=== PATIENT | female | born 1980 | race African-American/Black ===

== ENCOUNTER 2022-03-19 11:15 | Inpatient (IN) | payer MEDICARE, MEDICAID, SELFPAY ==
[2022-03-19 11:35] VITALS: BP 120/75; PULSE 90; RESP 18; TEMP 37.1; O2SAT 98; BMI 51.5
--- NOTE | 2022-03-19 12:05 | ECG_ITS ---
Test Reason : MED CLEARANCE Blood Pressure : / mmHG Vent. Rate : 077 BPM Atrial Rate : 077 BPM P-R Int : 182 ms QRS Dur : 064 ms QT Int : 354 ms P-R-T Axes : 051 048 057 degrees QTc Int : 400 ms Normal sinus rhythm Normal ECG No previous ECGs available Referred By: Mckenna Lockhart Electronically Signed By:NARESH HONG
[2022-03-19 12:58] LABS: MANUAL DIFF FLAG NO
[2022-03-19 13:03] LABS: Influenza A PCR NEGATIVE (Negative); Influenza B PCR NEGATIVE (Negative); Resp Syncy Virus RNA Qual PCR NEGATIVE (Negative); SARS COV2 PCR INHOUSE NEGATIVE (Negative)
[2022-03-19 13:03] LABS: Basophils Percent Auto 0.5 % (0-2); Eosinophils Percent Auto 0.5 % (0-4); Hematocrit 40.5 % (37.0-47.0); Hemoglobin 13.3 g/dl (12.0-16.0); Imm Gran Abs Auto 0.02 X10*3/uL (0.00-0.03); Imm Gran Pct Auto 0.3 % (0.0-0.4); Lymphocytes Absolute Auto 2.9 X10*3/uL (1.2-4.9); Lymphocytes Percent Auto 38.8 % (20-40); Mean Corpuscular HGB Conc 32.8 g/dl (31.0-35.0); Mean Corpuscular Hemoglobin 30.8 pg (27.0-33.0); Mean Corpuscular Volume 93.8 fL (80.0-98.0); Mean Platelet Volume 11.8 fL (9.4-12.3); Monocytes Absolute Auto 0.6 X10*3/uL (0.1-1.2); Monocytes Percent Auto 8.7 % (2-11); Neutrophils Absolute Auto 3.8 x10*3/uL (2.0-8.3); Neutrophils Percent Auto 51.2 % (45-73); Platelet Count 173 X10*3/uL (160-400); Red Blood Count 4.32 X10*6/uL (4.20-5.50); Red Cell Distribution Width 13.6 % (11.0-16.0); White Blood Count 7.4 X10*3/uL (4.8-10.8)
[2022-03-19 13:32] LABS: Alanine Aminotransferase 19 U/L (0-31); Alkaline Phosphatase 61 U/L (39-117); Anion Gap 13 (12-20); Aspartate Amino Transferase 13 U/L (5-31); Bilirubin Total 0.3 mg/dL (0.0-1.0); Blood Urea Nitrogen 16 mg/dL (9-16); Calcium 9.3 mg/dL (8.4-10.2); Carbon Dioxide 25 mmol/L (22-29); Chloride 106 mmol/L (96-108); Creatinine Clr Calc Pharmacy 135.1; Estimated Glomerular Filt Rate > 60; Ethanol < 10 mg/dL; Glucose Random 108 mg/dL (60-115); Potassium 3.9 mmol/L (3.3-5.1); Sodium 140 mmol/L (135-145); Total Protein 7.1 g/dL (6.5-8.0)
--- OUTSIDE RECORDS SUMMARY | 2022-03-19 13:43 | XMS_ITS | Continuity of Care Document ---
:1980 Author Organization [facility] Address [address] [place] [address]- Care Team Providers Name Role Phone Not on Staff, PCP Primary Care Physician Unavailable Encounter [facility] [place] Date(s): 10/13/19 - 11/15/19 [facility] [address] [place] [address]- [facility] Attending Physician: Not on Staff, Attending MD Allergies, Adverse Reactions, Alerts Substance Reaction Severity Status NKA Active Medications Cogentin Tablet 1 mg, By Mouth, 2 times a day, Refills 0, Maintenance, 03/25/16 14:12:47 Start Date: 03/25/16 Status: OrderedColace sodium 100 mg oral capsule 100 mg, 1, capsule, By Mouth, 2 times a day, # 60 capsule, Refills 5, Tot. Refills 5, Maintenance, 05/09/19 15:13:00 EST, Route to Pharmacy Electronically, [facility]/pharmacy #[id number], 170.18, cm, 04/21/19 10:18:00 EST, Height, 132.6, kg, 10/13/17 13:55:00 EDT... Start Date: 05/09/19 Status: OrderedDepakote 500 mg oral enteric coated tablet 1 tablet = 500 mg, By Mouth, 2 times a day, 0 Refills, Maintenance, 03/25/16 14:10:42 EST Start Date: 03/25/16 Stop Date: 04/24/16 Status: Orderedethinyl estradiol-levonorgestrel 20 mcg-100 mcg oral tablet 1 tablet, By Mouth, Daily, starting on the first day of the menstrual cycle for PCOS, per Endocrine,# 28 tablet, 11 Refills, Maintenance, 11/08/18 14:45:54 EDT, Tablet, 1 tablet By Mouth Daily,x28 days,Instr:starting on the first day of the menstrua... Start Date: 11/08/18 Stop Date: 10/10/19 Status: OrderedFlonase 50 mcg/inh nasal spray 1 sprays, Nares, Both, Daily, # 1 each, 11 Refills, Maintenance, 11/08/18 14:45:31 EDT, 1 sprays Nares, Both Daily Start Date: 11/08/18 Status: Orderedhaloperidol 5 mg oral tablet 5 mg, 1, tablet, By Mouth, Daily, Refills 0, Maintenance, 04/21/19 10:28:00 EST Start Date: 04/21/19 Status: OrderedmetFORMIN 500 mg oral tablet 1 tablet = 500 mg, By Mouth, 2 times a day, # 60 tablet, 11 Refills, Maintenance, 11/08/18 14:45:43 EDT, Tablet Start Date: 11/08/18 Stop Date: 11/03/19 Status: Orderedolanzapine 2.5 mg oral tablet TAKE 1 TABLET BY MOUTH NEEDED ONCE A DAY FOR SEVERE ANXIETY/ AGITATION/ AUDITORY HALLUCINATIONS Start Date: 03/10/17 Status: Orderedolanzapine 5 mg oral tablet TAKE 1 TABLET BY MOUTH AT BEDTIME DIRECTED Start Date: 03/10/17 Status: OrderedtraZODone 100 mg oral tablet 100 mg, 1, tablet, By Mouth, Daily at bedtime, Refills 0, Maintenance, 06/28/18 9:57:43 EDT Start Date: 06/28/18 Status: OrderedZyPREXA 20 mg oral tablet 1 tablet = 20 mg, By Mouth, Daily at bedtime, 0 Refills, Maintenance, 03/25/16 14:11:13 Start Date: 03/25/16 Status: Ordered Problem List Condition Effective Dates Status Health Status Informant Elevated prolactin level(Confirmed) Active Legal Guardian(Confirmed)1 Active Morbid obesity(Confirmed) Active Tobacco abuse(Confirmed) 1996 Active 1Mom is court appointed guardian as of 11/10/2010, Anjelica Hong Social History Social History Type Response Smoking Status Current every day smoker entered on: 03/10/17 Sex Female
--- OUTSIDE RECORDS SUMMARY | 2022-03-19 13:43 | XMS_ITS | Continuity of Care Document ---
:1980 Author Organization [facility] Address [address] [place] [address]- Care Team Providers Name Role Phone Ej ZNEG, Florence Glass Primary Care Physician [place] [facility] [place](s): 11/29/19 - 12/29/19 [facility] [address] [place] [address]- [facility] Allergies, Adverse Reactions, Alerts Substance Reaction Severity Status NKA Active Medications Cogentin Tablet 1 mg, By Mouth, 2 times a day, Refills 0, Maintenance, 03/25/16 14:12:47 Start Date: 03/25/16 Status: OrderedColace sodium 100 mg oral capsule 100 mg, 1, capsule, By Mouth, 2 times a day, # 60 capsule, Refills 5, Tot. Refills 5, Maintenance, 05/09/19 15:13:00 EST, [id number] 170.18, cm, 04/21/19 10:18:00 EST, Height, 132.6, kg, 10/13/17 13:55:00 EDT... Start Date: 05/09/19 Status: OrderedDepakote 500 mg oral enteric coated tablet 1 tablet = 500 mg, By Mouth, 2 times a day, 0 Refills, Maintenance, 03/25/16 14:10:42 EST Start Date: 03/25/16 Stop Date: 04/24/16 Status: Ordereddocusate sodium 100 mg oral capsule 100 mg, 1, capsule, By Mouth, 2 times a day, PRN, # 20 capsule, Refills 0, Tot. Refills 0, Maintenance, for constipation, 12/26/19 9:28:00 EDT, Route to Pharmacy Electronically, [facility], 170.18, cm, 04/21/19 10:18:00 EST, Height Start Date: 12/26/19 Status: OrderedFlonase 50 mcg/inh nasal spray 1 [...] 2 times a day, # 60 tablet, 2 Refills, Maintenance, 11/29/19 15:32:00 EDT, Tablet, [facility], 170.18, cm, 04/21/19 10:18:00 EST, Height Start Date: 11/29/19 Stop Date: 02/27/20 Status: Orderedolanzapine 2.5 mg oral tablet TAKE [...]
--- OUTSIDE RECORDS SUMMARY | 2022-03-19 13:43 | XMS_ITS | Continuity of Care Document ---
:1980 Author Organization [facility] Address [address] [place] [address]- Care Team Providers Name Role Phone Not on Staff, PCP Primary Care Physician Unavailable Encounter [facility] [place] Date(s): 11/11/19 - 11/12/[address] [address]- [facility] Encounter Diagnosis Poor compliance with medication (Final) - 11/12/19 Discharge Disposition: A-D/C Home Attending Physician: Macarena Billy MD Admitting Physician: Macarena Billy MD Referring Physician: Not on Staff, Referring MD Allergies, Adverse Reactions, Alerts Substance Reaction Severity Status NKA Active Medications Cogentin Tablet 1 mg, By Mouth, 2 times a day, Refills 0, Maintenance, 03/25/16 14:12:47 Start Date: 03/25/16 Status: OrderedColace sodium 100 mg oral capsule 100 mg, 1, capsule, By Mouth, 2 times a day, # 60 capsule, Refills 5, Tot. Refills 5, Maintenance, 05/09/19 15:13:00 EST, Route to Pharmacy Electronically, [facility]/pharmacy #[id number], 170.18, cm, 04/21/19 10:18:00 EST, Height, [...] appointed guardian as of 11/10/2010, Anjelica Hong Vital Signs Most recent to oldest [Reference 1 2 3 Range]: Oxygen Saturation [94-100 %] 98 % 100 % 100 % (11/12/19 5:38 AM) (11/12/19 4:07 AM) (11/12/19 1:53 A M) Pulse Rate [55-90 bpm] 84 bpm 79 bpm 78 bpm (11/12/19 5:38 AM) (11/12/19 4:07 AM) (11/12/19 1:53 A M) Blood Pressure [90-138/55-84 mm 134/74 mm Hg 128/79 mm Hg 128/89 mm Hg Hg] (11/12/19 5:38 AM) (11/12/19 4:07 AM) (11/12/19 1:53 A M) Respiratory Rate [16-30 br/min] 20 br/min 16 br/min 16 br/min (11/12/19 5:38 AM) (11/12/19 4:07 AM) (11/12/19 1:53 A M) Temperature [96.8-100.4 DegF] 98.4 DegF 98.7 DegF 97 .8 DegF (11/12/19 4:07 AM) (11/12/19 1:53 AM) (11/11/19 11:43 PM) Mode of Delivery (Oxygen) Room air Room air Room a ir (11/12/19 5:38 AM) (11/12/19 4:07 AM) (11/12/19 1:53 A M) Blood pressure sites Arm, right Arm, left Arm, left (11/12/19 5:38 AM) (11/12/19 4:07 AM) (11/12/19 1:53 A M) Temperature Route Oral Oral Oral (11/12/19 4:07 AM) (11/12/19 1:53 AM) (11/11/19 11:43 PM) Social History Social History Type Response Smoking Status Current every day smoker entered on: 03/10/17 Sex Female
--- OUTSIDE RECORDS SUMMARY | 2022-03-19 13:43 | XMS_ITS | Continuity of Care Document ---
:1980 Author Organization [facility] Address [address] [place] [address]- Care Team Providers Name Role Phone Tiana FERNANDEZ, Mary Jo Sylvester Primary Care Physician [phone] Encounter [facility] [place] Date(s): 08/12/20 - 09/11/20 [facility] [address] [place] [address]- Allergies, Adverse Reactions, Alerts Substance Reaction Severity Status NKA Active Medications Cogentin Tablet 1 mg, By Mouth, 2 times a day, Refills 0, Maintenance, 03/25/16 14:12:47 Start Date: 03/25/16 Status: OrderedDepakote 500 mg oral enteric coated tablet 1 tablet = 500 mg, By Mouth, 2 times a day, 0 Refills, Maintenance, 03/25/16 14:10:42 EST Start Date: 03/25/16 Stop Date: 04/24/16 Status: OrderedDOK sodium 100 mg oral capsule See Instructions, TAKE 1 CAPSULE BY MOUTH TWICE DAILY NEEDED FOR CONSTIPATION, # 30 capsule, 10 Refills, 05/31/20 10:06:00 EST, [facility], 170.18, cm, 05/31/20 9:06:00 EST, Height Start Date: 05/31/20 Status: OrderedFalmina 100 mcg-20 mcg oral tablet 1 tablet, By Mouth, Daily, STARTING ON THE FIRST DAY OF THE MENSTRUAL CYCLE; FOR PCOS, PER ENDOCRINE, # 28 tablet, 4 Refills, Maintenance, 06/07/20 11:55:00 EST, [facility], 28, TAKE 1 TABLETBY MOUTH DAILY STARTING ON THE FIRST DAY OF THE M... Start Date: 06/07/20 Status: OrderedFlonase 50 mcg/inh nasal spray 1 sprays, Nares, Both, Daily, in each nostril, # 1 each, 11 Refills, Maintenance, 05/31/20 10:06:00 EST, [facility], 1 sprays Nares, Both Daily,Instr:in each nostril, 170.18, cm, 05/31/20 9:06:00 EST, Height Start Date: 05/31/20 Status: OrderedFluconazole 150 mg, Once, Acute, 01/16/20 10:41:00 EDT Start Date: 01/16/20 Status: Orderedhaloperidol 5 mg oral tablet 5 mg, 1, tablet, By Mouth, Daily, Refills 0, Maintenance, 04/21/19 10:28:00 EST Start Date: 04/21/19 Status: Orderedloratadine 10 mg oral tablet 10 mg, 1, tablet, By Mouth, Daily, # 30 tablet, Refills 3, Tot. Refills 3, Maintenance, 08/13/20 11:23:00 EDT, Route to Pharmacy Electronically, [facility], Partial fill upon patient request if the prescription is for a schedule II opioid . Start Date: 08/13/20 Status: OrderedmetFORMIN 500 mg oral tablet 1 tablet, By Mouth, 2 times a day, with meals, # 60 tablet, 3 Refills, Maintenance, 05/31/20 10:06:00 EST, [facility], 170.18, cm, 05/31/20 9:06:00 EST, Height Start Date: 05/31/20 Status: Orderedolanzapine 2.5 mg oral tablet TAKE [...] Condition Effective Dates Status Health Status Informant Allergic rhinitis(Confirmed) Active Elevated prolactin level(Confirmed) Active Legal Guardian(Confirmed)1 Active Morbid obesity(Confirmed) Active Tobacco abuse(Confirmed) 1996 Active 1Mom is court appointed guardian as of 11/10/2010, Anjelica Hong Social History Social History Type Response Smoking Status 10 or more cigarettes (1/2 p ack or more)/day in last 30 days entered on: 06/27/20 Sex Female
--- OUTSIDE RECORDS SUMMARY | 2022-03-19 13:43 | XMS_ITS | Continuity of Care Document ---
:1980 Author Organization [facility] Address [address] [place] [address]- Care Team Providers Name Role Phone Tiana FERNANDEZ, Mary Jo Sylvester Primary Care Physician Encounter [facility] [place] Date(s): 05/21/20 - 06/20/20 [facility] [address] [place] [id number] Allergies, Adverse Reactions, Alerts Substance Reaction Severity [...] 30 capsule, 10 Refills, 05/31/20 10:06:00 EST, [facility], 170.18, cm, 05/31/20 9:06:00 EST, Height Start Date: 05/31/20 Status: OrderedFalmina 100 mcg-20 mcg oral tablet 1 tablet, By Mouth, Daily, STARTING ON THE FIRST DAY OF THE MENSTRUAL CYCLE; FOR PCOS, PER ENDOCRINE, # 28 tablet, 4 Refills, Maintenance, 06/07/20 11:55:00 EST, [facility], 28, TAKE 1 TABLETBY MOUTH DAILY STARTING ON THE FIRST DAY OF THE M... Start Date: 06/07/20 Status: OrderedFlonase 50 mcg/inh nasal spray 1 sprays, Nares, Both, Daily, in each nostril, # 1 each, 11 Refills, Maintenance, 05/31/20 10:06:00 EST, [facility], 1 sprays Nares, Both Daily,Instr:in each [...] tablet, 3 Refills, Maintenance, 05/31/20 10:06:00 EST, [facility], 170.18, cm, 05/31/20 9:06:00 EST, Height [...]
--- OUTSIDE RECORDS SUMMARY | 2022-03-19 13:43 | XMS_ITS | Continuity of Care Document ---
:1980 Author Organization [facility] Address [address] [place] [address]- Care Team Providers Name Role Phone Tiana FERNANDEZ, Mary Jo Sylvester Primary Care Physician [phone] Encounter [facility] [place] [id number] Date(s): 10/15/20 - 11/14/20 [facility] [address] [place] [address]- Attending Physician: Estelita Rai Admitting Physician: AdmtrEstelita Referring Physician: AdmtrEstelita Allergies, Adverse Reactions, Alerts Substance Reaction Severity [...] DAILY NEEDED FOR CONSTIPATION, # 30 capsule, 6 Refills, 10/01/20 11:21:00 EDT, [facility], 170.18, cm, 09/25/20 11:03:00 EDT, Height Start Date: 10/01/20 Status: OrderedFlonase 50 mcg/inh nasal spray 1 sprays, Nares, Both, Daily, in each nostril, # 1 each, 11 Refills, Maintenance, 10/01/20 9:30:00 EDT, [facility], 1 sprays Nares, Both Daily,Instr:in each nostril, 170.18, cm, 09/25/20 11:03:00 EDT, Height Start Date: 10/01/20 Status: OrderedFluconazole 150 mg, Once, Acute, 01/16/20 10:41:00 EDT Start Date: 01/16/20 Status: Orderedhaloperidol 5 mg oral tablet 5 mg, 1, tablet, By Mouth, Daily, Refills 0, Maintenance, 04/21/19 10:28:00 EST Start Date: 04/21/19 Status: OrderedLarissia 100 mcg-20 mcg oral tablet 1 tablet, By Mouth, Daily, STARTING 1ST DAY OF MENSTRUAL CYCLE., # 28 tablet, 0 Refills, Maintenance, 10/31/20 15:17:00 EDT, [id number], 28, TAKE 1 TABLET BY MOUTH EVERY DAY STARTING 1ST DAY OF MENSTRUAL CYCLE, 170.18, cm, 10/15/20 9:42:00 EDT, H... Start Date: 10/31/20 Status: Orderedloratadine 10 mg oral tablet 10 mg, 1, tablet, By Mouth, Daily, # 30 tablet, Refills 3, Tot. Refills 3, Maintenance, 10/01/20 9:26:00 EDT, Route to Pharmacy Electronically, [facility], Partial fill upon patient request if the prescription is for a schedule II opioid arturo... Start Date: 10/01/20 Status: OrderedmetFORMIN 500 mg oral tablet 1 tablet, By Mouth, 2 times a day, with meals, # 60 tablet, 5 Refills, Maintenance, 10/01/20 9:28:00EDT, [facility], 170.18, cm, 09/25/20 11:03:00 EDT, Height Start Date: 10/01/20 Status: Orderedolanzapine 2.5 mg oral tablet TAKE [...]
--- OUTSIDE RECORDS SUMMARY | 2022-03-19 13:43 | XMS_ITS | Continuity of Care Document ---
:1980 Author Organization [facility] Address [address] [place] [address]- Care Team Providers Name Role Phone Tiana FERNANDEZ, Mary Jo Sylvester Primary Care Physician [place] [facility] [place](s): 08/08/20 - 08/08/[address] [address]- Discharge Disposition: A-D/C Home Attending Physician: Wang Rosado MD Admitting Physician: Wang Rosado MD Referring Physician: Not on Staff, Referring [...] 30 capsule, 10 Refills, 05/31/20 10:06:00 EST, [facility], 170.18, cm, 05/31/20 9:06:00 EST, Height Start Date: 05/31/20 Status: OrderedFalmina 100 mcg-20 mcg oral tablet 1 tablet, By Mouth, Daily, STARTING ON THE FIRST DAY OF THE MENSTRUAL CYCLE; FOR PCOS, PER ENDOCRINE, # 28 tablet, 4 Refills, Maintenance, 06/07/20 11:55:00 EST, [facility], 28, TAKE 1 TABLETBY MOUTH DAILY STARTING ON THE FIRST DAY OF THE M... Start Date: 06/07/20 Status: OrderedFlonase 50 mcg/inh nasal spray 1 sprays, Nares, Both, Daily, in each nostril, # 1 each, 11 Refills, Maintenance, 05/31/20 10:06:00 EST, [facility], 1 sprays Nares, Both Daily,Instr:in each [...] tablet, 3 Refills, Maintenance, 05/31/20 10:06:00 EST, [facility], 170.18, cm, 05/31/20 9:06:00 EST, Height [...] Vital Signs Most recent to oldest [Reference Range]: 1 2 Oxygen Saturation [94-100 %] 96 % 100 % (08/08/20 5:27 AM) (08/08/20 3:35 AM) Pulse Rate [55-90 bpm] 70 bpm 88 bpm (08/08/20 5:27 AM) (08/08/20 3:35 AM) Blood Pressure [90-138/55-84 mm Hg] 146/83 mm Hg 136/ 73 mm Hg *H* (08/08/20 3:35 AM) (08/08/20 5:27 AM) Respiratory Rate [16-30 br/min] 18 br/min 18 br/mi n (08/08/20 5:27 AM) (08/08/20 3:35 AM) Temperature [96.8-100.4 DegF] 97.5 DegF (08/08/20 3:35 AM) Mode of Delivery (Oxygen) Room air Room air (08/08/20 5:27 AM) (08/08/20 3:35 AM) Blood pressure sites Arm, left Arm, left (08/08/20 5:27 AM) (08/08/20 3:35 AM) Temperature Route Oral (08/08/20 3:35 AM) Social History Social History Type Response Smoking Status 10 or more cigarettes (1/2 p ack or more)/day in last 30 days entered on: 06/27/20 Sex Female
--- OUTSIDE RECORDS SUMMARY | 2022-03-19 13:43 | XMS_ITS | Continuity of Care Document ---
:1980 Author Organization [facility] Address [address] [place] [address]- Care Team Providers Name Role Phone Tiana FERNANDEZ, Mary Jo Sylvester Primary Care Physician [place] [facility] [place] 07/03/20 - 10/18/[address] [address] Attending Physician: Not on Staff, Attending MD [...] 30 capsule, 6 Refills, 10/01/20 11:21:00 EDT, [facility], 170.18, cm, 09/25/20 11:03:00 EDT, Height Start Date: 10/01/20 Status: OrderedFalmina 100 mcg-20 mcg oral tablet 1 tablet, By Mouth, Daily, STARTING ON THE FIRST DAY OF THE MENSTRUAL CYCLE; FOR PCOS, PER ENDOCRINE, # 28 tablet, 11 Refills, Maintenance, 10/15/20 10:35:00 EDT, [facility], 28, 1 tablet By Mouth Daily,Instr:STARTING ON THE FIRST DAY OF THE... Start Date: 10/15/20 Status: OrderedFlonase 50 mcg/inh nasal spray 1 sprays, Nares, Both, Daily, in each nostril, # 1 each, 11 Refills, Maintenance, 10/01/20 9:30:00 EDT, [facility], 1 sprays Nares, Both Daily,Instr:in each [...] 10/01/20 9:26:00 EDT, Route to Pharmacy Electronically, [facility], Partial fill upon patient request if the prescription is for a schedule II opioid arturo... Start Date: 10/01/20 Status: OrderedmetFORMIN 500 mg oral tablet 1 tablet, By Mouth, 2 times a day, with meals, # 60 tablet, 5 Refills, Maintenance, 10/01/20 9:28:00EDT, [facility], 170.18, cm, 09/25/20 11:03:00 EDT, Height [...]
--- OUTSIDE RECORDS SUMMARY | 2022-03-19 13:43 | XMS_ITS | Continuity of Care Document ---
:1980 Author Organization [facility] Address [address] [place] [address]- Care Team Providers Name Role Phone Tiana FERNANDEZ, Mary Jo Sylvester Primary Care Physician Encounter [facility] [place] Date(s): 06/25/20 - 07/25/20 [facility] [address] [place] [id number] Allergies, Adverse Reactions, Alerts Substance [...] 30 capsule, 10 Refills, 05/31/20 10:06:00 EST, [facility], 170.18, cm, 05/31/20 9:06:00 EST, Height Start Date: 05/31/20 Status: OrderedFalmina 100 mcg-20 mcg oral tablet 1 tablet, By Mouth, Daily, STARTING ON THE FIRST DAY OF THE MENSTRUAL CYCLE; FOR PCOS, PER ENDOCRINE, # 28 tablet, 4 Refills, Maintenance, 06/07/20 11:55:00 EST, [facility], 28, TAKE 1 TABLETBY MOUTH DAILY STARTING ON THE FIRST DAY OF THE M... Start Date: 06/07/20 Status: OrderedFlonase 50 mcg/inh nasal spray 1 sprays, Nares, Both, Daily, in each nostril, # 1 each, 11 Refills, Maintenance, 05/31/20 10:06:00 EST, [facility], 1 sprays Nares, Both Daily,Instr:in each [...] tablet, 3 Refills, Maintenance, 05/31/20 10:06:00 EST, [facility], 170.18, cm, 05/31/20 9:06:00 EST, Height [...]
--- OUTSIDE RECORDS SUMMARY | 2022-03-19 13:43 | XMS_ITS | Continuity of Care Document ---
:1980 Author Organization [facility] Address [address] [place] [address]- Care Team Providers Name Role Phone Tiana FERNANDEZ, Mary Jo Sylvester Primary Care Physician [phone] [place] [facility] [place] - 10/25/[address] [address] Attending Physician: Estelita Rai Admitting Physician: Estelita Rai Referring Physician: AdmtrEstelita Allergies, Adverse Reactions, Alerts [...] 30 capsule, 6 Refills, 10/01/20 11:21:00 EDT, [facility], 170.18, cm, 09/25/20 11:03:00 EDT, Height Start Date: 10/01/20 Status: OrderedFalmina 100 mcg-20 mcg oral tablet 1 tablet, By Mouth, Daily, STARTING ON THE FIRST DAY OF THE MENSTRUAL CYCLE; FOR PCOS, PER ENDOCRINE, # 28 tablet, 11 Refills, Maintenance, 10/15/20 10:35:00 EDT, [facility], 28, 1 tablet By Mouth Daily,Instr:STARTING ON THE FIRST DAY OF THE... Start Date: 10/15/20 Status: OrderedFlonase 50 mcg/inh nasal spray 1 sprays, Nares, Both, Daily, in each nostril, # 1 each, 11 Refills, Maintenance, 10/01/20 9:30:00 EDT, [facility], 1 sprays Nares, Both Daily,Instr:in each [...] 10/01/20 9:26:00 EDT, Route to Pharmacy Electronically, [facility], Partial fill upon patient request if the prescription is for a schedule II opioid arturo... Start Date: 10/01/20 Status: OrderedmetFORMIN 500 mg oral tablet 1 tablet, By Mouth, 2 times a day, with meals, # 60 tablet, 5 Refills, Maintenance, 10/01/20 9:28:00EDT, [facility], 170.18, cm, 09/25/20 11:03:00 EDT, Height [...]
--- OUTSIDE RECORDS SUMMARY | 2022-03-19 13:43 | XMS_ITS | Continuity of Care Document ---
:1980 Author Organization [facility] Address [address] [place] [address]- Care Team Providers Name Role Phone Tiana FERNANDEZ, Mary Jo Sylvester Primary Care Physician [phone] [place] [facility] [place] - 08/22/21 [facility] [address] [place], [place] [address] Allergies, Adverse Reactions, Alerts No Known Allergies Immunizations Given and Recorded Vaccine Date Status Refusal Reason SARS-CoV-2 (COVID-19) mRNA BNT-162b2 vac 01/20/21 Recorde d SARS-CoV-2 (COVID-19) mRNA BNT-162b2 vac 12/23/20 Recorde d Medications Cogentin Tablet 1 mg, By Mouth, 2 times a day, Refills 0, Maintenance, 03/25/16 14:12:47 Start Date: 03/25/16 Status: OrderedDepakote 500 mg oral enteric coated tablet 1 tablet = 500 mg, By Mouth, 2 times a day, 0 Refills, Maintenance, 03/25/16 14:10:42 EST Start Date: 03/25/16 Stop Date: 04/24/16 Status: Ordereddiclofenac 1% topical gel See Instructions, APPLY TO AFFECTED AREA FOUR TIMES DAILY NEEDED FOR LEFT KNEE PAIN, # 100 Gm, 0 Refills, [facility], 30, APPLY TO AFFECTED AREA FOUR TIMES DAILY NEEDED FOR LEFT KNEE PAIN, 170.18, cm, 07/22/21 10:56:00 EDT, Height Start Date: 08/04/21 Status: Ordereddocusate sodium 100 mg oral capsule 1 capsule, By Mouth, 2 times a day, # 30 capsule, 5 Refills, [facility], 170.18, cm, 10/15/20 9:42:00 EDT, Height Start Date: 04/17/21 Status: OrderedFlonase 50 mcg/inh nasal spray 1 sprays, Nares, Both, Daily, in each nostril, # 1 each, 11 Refills, Maintenance, 10/01/20 9:30:00 EDT, [facility], 1 sprays Nares, Both Daily,Instr:in each [...] tablet, 0 Refills, Maintenance, 10/31/20 15:17:00 EDT, [id number], 28, TAKE 1 TABLET BY MOUTH EVERY DAY STARTING 1ST DAY OF MENSTRUAL CYCLE, 170.18, cm, 10/15/20 9:42:00 EDT, H... Start Date: 10/31/20 Status: Orderedloratadine 10 mg oral tablet 10 mg, 1, tablet, By Mouth, Daily, # 30 tablet, Refills 3, Tot. Refills 3, Maintenance, 10/01/20 9:26:00 EDT, Route to Pharmacy Electronically, [facility], Partial fill upon patient request if the prescription is for a schedule II opioid arturo... Start Date: 10/01/20 Status: OrderedmetFORMIN 500 mg oral tablet 1 tablet, By Mouth, 2 times a day, with meals, # 60 tablet, 5 Refills, Maintenance, 05/05/21 8:53:00EST, [facility], 170.18, cm, 10/15/20 9:42:00 EDT, Height Start Date: 05/05/21 Status: Orderedolanzapine 2.5 mg oral tablet TAKE [...] Active Legal Guardian(Confirmed)1 Active Morbid obesity(Confirmed) Active Pre-diabetes(Confirmed) Active Severe obesity(Confirmed) Active Tobacco abuse(Confirmed) 1996 Active 1Mom is court appointed guardian as of 11/10/2010, Anjelica Hong Social History Social History Type Response Tobacco Use: 4 or less cigarettes(le ss than 1/4 pack)/day in last 30 days. Other: 1 - 2 ciggs per day. Sex Female
--- OUTSIDE RECORDS SUMMARY | 2022-03-19 13:43 | XMS_ITS | Continuity of Care Document ---
:1980 Author Organization [facility] Address [address] [place] [address]- Care Team Providers Name Role Phone Florence Pagan NP Primary Care Physician [place] [facility] [place](s): 10/05/19 - 10/05/[address] [address]- [facility] Encounter Diagnosis Psychiatric illness (Final) - 10/05/19 Discharge Disposition: A-D/C Home Attending Physician: Rafaela Coelho DO Admitting Physician: Rafaela Coelho DO Referring Physician: Not on Staff, Referring MD [...] 05/09/19 15:13:00 EST, Route to Pharmacy Electronically, [facility]/pharmacy #[id number], 170.18, cm, 04/21/19 10:18:00 EST, Height, [...] Range]: 1 2 Oxygen Saturation [94-100 %] 100 % 96 % (10/05/19 2:11 PM) (10/05/19 11:29 AM) Pulse Rate [55-90 bpm] 72 bpm 106 bpm (10/05/19 2:11 PM) *H* (10/05/19 11:29 AM) Blood Pressure [90-138/55-84 mm Hg] 148/99 mm Hg 150/ 103 mm Hg *H* *H* (10/05/19 2:11 PM) (10/05/19 11:29 AM) Respiratory Rate [16-30 br/min] 16 br/min 18 br/mi n (10/05/19 2:11 PM) (10/05/19 11:29 AM) Temperature [96.8-100.4 DegF] 97.5 DegF (10/05/19 11:29 AM) Mode of Delivery (Oxygen) Room air Room air (10/05/19 2:11 PM) (10/05/19 11:29 AM) Blood pressure sites Arm, right Arm, right (10/05/19 2:11 PM) (10/05/19 11:29 AM) Temperature Route Oral (10/05/19 11:29 AM) Social History Social History Type Response Smoking Status Current every day smoker entered on: 03/10/17 Sex Female
--- OUTSIDE RECORDS SUMMARY | 2022-03-19 13:43 | XMS_ITS | Continuity of Care Document ---
:1980 Author Organization [facility] Address [address] [place] [address]- Care Team Providers Name Role Phone Eloina FERNANDEZ, Viry Primary Care Physician Encounter [facility] Date(s): 12/24/21 - 01/23/22 [facility] [address] [place], [place] [address] Allergies, Adverse Reactions, Alerts No Known Allergies Immunizations Given and Recorded Vaccine Date Status Refusal Reason SARS-CoV-2 (COVID-19) mRNA BNT-162b2 vac 01/20/21 Recorde d SARS-CoV-2 (COVID-19) mRNA BNT-162b2 vac 12/23/20 Recorde d Medications benztropine 1 mg oral tablet 1 mg, 1, tablet, By Mouth, Daily at bedtime, # 30 tablet, Refills 0, Maintenance, 11/12/21 13:29:00 EDT, Partial fill upon patient request if the prescription is for a schedule II opioid drug. Start Date: 11/12/21 Status: OrderedDepakote 500 mg oral enteric coated tablet 1 tablet = 500 mg, By Mouth, 2 times a day, 0 Refills, Maintenance, 03/25/16 14:10:42 EST Start Date: 03/25/16 Stop Date: 04/24/16 Status: Ordereddiclofenac 1% topical gel See Instructions, APPLY TO AFFECTED AREA FOUR TIMES DAILY NEEDED FOR LEFT KNEE PAIN, # 100 Gm, 3 Refills, 11/12/21 13:32:00 EDT, [facility], 30, APPLY TO AFFECTED AREA FOUR TIMES DAILY NEEDED FOR LEFT KNEE PAIN, 170.18, cm, 11/12/21 13... Start Date: 11/12/21 Status: Ordereddivalproex sodium 500 mg oral tablet, extended release 2 tablet = 1,000 mg, By Mouth, Daily at bedtime, # 90 tablet, 0 Refills, Maintenance, 11/12/21 13:29:00 EDT, ER Tablet, Partial fill upon patient request if the prescription is for a schedule II opioiddrug. Start Date: 11/12/21 Status: OrderedDOK sodium 100 mg oral capsule See Instructions, TAKE 1 CAPSULE BY MOUTH TWICE DAILY, # 60 capsule, 0 Refills, Maintenance, 12/09/21 13:30:00 EDT, [facility], 170.18, cm, 11/12/21 13:13:00 EDT, Height, 131, kg, 09/11/21 13:09:00 EDT, Dry Weight Start Date: 12/09/21 Status: Orderedescitalopram 20 mg oral tablet 1 tablet = 20 mg, By Mouth, Daily, # 30 tablet, 0 Refills, Maintenance, 11/12/21 13:26:00 EDT, Tablet, Partial fill upon patient request if the prescription is for a schedule II opioid drug. Start Date: 11/12/21 Status: OrderedFluconazole 150 mg, Once, Acute, 01/16/20 10:41:00 EDT Start Date: 01/16/20 Status: Orderedfluticasone 50 mcg/inh nasal spray See Instructions, INSTILL 1 SPRAY INTO BOTH NOSTRILS EVERY DAY, # 16 each, 10 Refills, [facility], 30, INSTILL 1 SPRAY INTO BOTH NOSTRILS EVERY DAY, 170.18, cm, 07/22/21 10:56:00 EDT, Height,131, kg, 09/11/21 13:09:00 EDT, Dry Weight Start Date: 10/21/21 Status: OrderedLarissia 100 mcg-20 mcg oral tablet 1 tablet, By Mouth, Daily, STARTING 1ST DAY OF MENSTRUAL CYCLE., # 28 tablet, 6 Refills, Maintenance, 10/16/21 17:19:00 EDT, [facility], 1 tablet By Mouth Daily,Instr:STARTING 1ST DAY OF MENSTRUAL CYCLE., 170.18, cm, 07/22/21 10:56:00 EDT, H... Start Date: 10/16/21 Status: OrderedmetFORMIN 500 mg oral tablet 1 tablet, By Mouth, 2 times a day, with meals, # 60 tablet, 5 Refills, Maintenance, 11/12/21 13:31:00 EDT, [facility], 170.18, cm, 11/12/21 13:13:00 EDT, Height, 131, kg, 09/11/21 13:09:00 EDT, Dry Weight Start Date: 11/12/21 Status: Orderedolanzapine 5 mg oral tablet TAKE 1 TABLET BY MOUTH AT BEDTIME DIRECTED Start Date: 03/10/17 Status: OrderedtraZODone 150 mg oral tablet 1 tablet = 150 mg, By Mouth, Daily at bedtime, # 30 tablet, 0 Refills, Maintenance, 11/12/21 13:27:00 EDT, Tablet, Partial fill upon patient request if the prescription is for a schedule II opioid drug. Start Date: 11/12/21 Status: OrderedZyPREXA 20 mg oral tablet 1 tablet = 20 mg, By Mouth, Daily at bedtime, 0 Refills, Maintenance, 03/25/16 14:11:13 Start Date: 03/25/16 Status: Ordered Problem List Condition Confirmation Course Effective Dates Status Health Stat us Informant Allergic rhinitis Confirmed Active Elevated prolactin Confirmed Active level Legal Guardian1 Confirmed Active Morbid obesity Confirmed Active Pre-diabetes Confirmed Active Severe obesity Confirmed Active Tobacco abuse Confirmed 1997 Active 1Mom is court appointed guardian as of 11/10/2010, Anjelica Hong Social History Social History Type Response Tobacco Use: 4 or less cigarettes(le ss than 1/4 pack)/day in last 30 days. Other: 1 - 2 ciggs per day. Sex Female Patient Care team information PersonnelName: Viry Duvall MD Address: Address: [address] [place] [address] [place], [place] [address]
--- OUTSIDE RECORDS SUMMARY | 2022-03-19 13:43 | XMS_ITS | Continuity of Care Document ---
:1980 Author Organization [facility] Adult Medicine Address [address] [place] [address]- Care Team Providers Name Role Phone Tiana FERNANDEZ, Mary Jo Sylvester Primary Care Physician [phone] Encounter [facility] [place] Date(s): 07/22/21 - 08/21/21 [facility] Adult Medicine [address] [place] [address]- Attending Physician: Estelita Rai Admitting Physician: AdmEstelita martins Referring Physician: AdmtrEstelita Allergies, Adverse Reactions, Alerts No Known Allergies [...] KNEE PAIN, # 100 Gm, 0 Refills, [facility], 30, APPLY TO AFFECTED AREA FOUR TIMES DAILY NEEDED FOR LEFT KNEE PAIN, 170.18, cm, 07/22/21 10:56:00 EDT, Height Start Date: 08/04/21 Status: Ordereddocusate sodium 100 mg oral capsule 1 capsule, By Mouth, 2 times a day, # 30 capsule, 5 Refills, [facility], 170.18, cm, 10/15/20 9:42:00 EDT, Height Start Date: 04/17/21 Status: OrderedFlonase 50 mcg/inh nasal spray 1 sprays, Nares, Both, Daily, in each nostril, # 1 each, 11 Refills, Maintenance, 10/01/20 9:30:00 EDT, [facility], 1 sprays Nares, Both Daily,Instr:in each [...] tablet, 0 Refills, Maintenance, 10/31/20 15:17:00 EDT, [id number], 28, TAKE 1 TABLET BY MOUTH EVERY DAY STARTING 1ST DAY OF MENSTRUAL CYCLE, 170.18, cm, 10/15/20 9:42:00 EDT, H... Start Date: 10/31/20 Status: Orderedloratadine 10 mg oral tablet 10 mg, 1, tablet, By Mouth, Daily, # 30 tablet, Refills 3, Tot. Refills 3, Maintenance, 10/01/20 9:26:00 EDT, Route to Pharmacy Electronically, [facility], Partial fill upon patient request if the prescription is for a schedule II opioid arturo... Start Date: 10/01/20 Status: OrderedmetFORMIN 500 mg oral tablet 1 tablet, By Mouth, 2 times a day, with meals, # 60 tablet, 5 Refills, Maintenance, 05/05/21 8:53:00EST, [facility], 170.18, cm, 10/15/20 9:42:00 EDT, Height [...]
--- OUTSIDE RECORDS SUMMARY | 2022-03-19 13:43 | XMS_ITS | Continuity of Care Document ---
:1980 Author Organization [facility] Address [address] [place] [address]- Care Team Providers Name Role Phone Ej ZENG, Florence Glass Primary Care Physician [place] [facility] [place] 03/29/20 [facility] [address] [place] [address]- Attending Physician: Estelita Rai Admitting Physician: Estelita [...] CAPSULE BY MOUTH TWICE DAILY NEEDED FOR CONSTIPATIOMN, # 30 capsule, 10 Refills, Maintenance, [facility], 170.18, cm, 04/21/19 10:18:00 EST, Height Start Date: 01/22/20 Status: OrderedFlonase 50 mcg/inh nasal spray 1 sprays, Nares, Both, Daily, # 1 each, 11 Refills, Maintenance, 03/19/20 17:45:00 EST, [facility], 1 sprays Nares, Both Daily, 170.18, cm, 04/21/19 10:18:00 EST, Height Start Date: 03/19/20 Status: OrderedFluconazole 150 mg, Once, Acute, 01/16/20 10:41:00 EDT Start Date: 01/16/20 Status: Orderedhaloperidol 5 mg oral tablet 5 mg, 1, tablet, By Mouth, Daily, Refills 0, Maintenance, 04/21/19 10:28:00 EST Start Date: 04/21/19 Status: OrderedmetFORMIN 500 mg oral tablet 1 tablet, By Mouth, 2 times a day, # 60 tablet, 1 Refills, Maintenance, 03/26/20 11:29:00 EST, [facility], 170.18, cm, 04/21/19 10:18:00 EST, Height Start Date: 03/26/20 Status: Orderedolanzapine 2.5 mg oral tablet TAKE [...]
--- OUTSIDE RECORDS SUMMARY | 2022-03-19 13:43 | XMS_ITS | Continuity of Care Document ---
:1980 Author Organization [facility] Address [address] [place] [address]- Care Team Providers Name Role Phone Tiana FERNANDEZ, Mary Jo Sylvester Primary Care Physician [phone] [place] [facility] [place](s): 06/06/20 - 07/06/20 [facility] Medicine [address] [place] [id number] Allergies, Adverse Reactions, Alerts Substance Reaction Severity [...] 30 capsule, 10 Refills, 05/31/20 10:06:00 EST, [facility], 170.18, cm, 05/31/20 9:06:00 EST, Height Start Date: 05/31/20 Status: OrderedFalmina 100 mcg-20 mcg oral tablet 1 tablet, By Mouth, Daily, STARTING ON THE FIRST DAY OF THE MENSTRUAL CYCLE; FOR PCOS, PER ENDOCRINE, # 28 tablet, 4 Refills, Maintenance, 06/07/20 11:55:00 EST, [facility], 28, TAKE 1 TABLETBY MOUTH DAILY STARTING ON THE FIRST DAY OF THE M... Start Date: 06/07/20 Status: OrderedFlonase 50 mcg/inh nasal spray 1 sprays, Nares, Both, Daily, in each nostril, # 1 each, 11 Refills, Maintenance, 05/31/20 10:06:00 EST, [facility], 1 sprays Nares, Both Daily,Instr:in each [...] tablet, 3 Refills, Maintenance, 05/31/20 10:06:00 EST, [facility], 170.18, cm, 05/31/20 9:06:00 EST, Height [...]
--- OUTSIDE RECORDS SUMMARY | 2022-03-19 13:43 | XMS_ITS | Continuity of Care Document ---
:1980 Author Organization [facility] Address [address] [place] [address]- Care Team Providers Name Role Phone Eloina FERNANDEZ, Viry Primary Care Physician [place] [facility] [place] 09/15/21 - 11/01/21 [facility] [address] [place] [address]- Attending Physician: Not on Staff, Attending MD Allergies, Adverse Reactions, Alerts No Known Allergies [...] KNEE PAIN, # 100 Gm, 0 Refills, [facility], 30, APPLY TO AFFECTED AREA FOUR TIMES DAILY NEEDED FOR LEFT KNEE PAIN, 170.18, cm, 07/22/21 10:56:00 EDT, Height Start Date: 08/04/21 Status: Ordereddocusate sodium 100 mg oral capsule 1 capsule, By Mouth, 2 times a day, # 60 capsule, 4 Refills, [facility], 170.18, cm, 07/22/21 10:56:00 EDT, Height, 131, kg, 09/11/21 13:09:00 EDT, Dry Weight Start Date: 10/28/21 Status: OrderedFluconazole 150 mg, Once, Acute, 01/16/20 10:41:00 EDT Start Date: 01/16/20 Status: Orderedfluticasone 50 mcg/inh nasal spray See Instructions, INSTILL 1 SPRAY INTO BOTH NOSTRILS EVERY DAY, # 16 each, 10 Refills, [facility], 30, INSTILL 1 SPRAY INTO BOTH NOSTRILS EVERY DAY, 170.18, cm, 07/22/21 10:56:00 EDT, Height,131, kg, 09/11/21 13:09:00 EDT, Dry Weight Start Date: 10/21/21 Status: Orderedhaloperidol 5 mg oral tablet 5 mg, 1, tablet, By Mouth, Daily, Refills 0, Maintenance, 04/21/19 10:28:00 EST Start Date: 04/21/19 Status: OrderedLarissia 100 mcg-20 mcg oral tablet 1 tablet, By Mouth, Daily, STARTING 1ST DAY OF MENSTRUAL CYCLE., # 28 tablet, 6 Refills, Maintenance, 10/16/21 17:19:00 EDT, [facility], 1 tablet By Mouth Daily,Instr:STARTING 1ST DAY OF MENSTRUAL CYCLE., 170.18, cm, 07/22/21 10:56:00 EDT, H... Start Date: 10/16/21 Status: Orderedloratadine 10 mg oral tablet 10 mg, 1, tablet, By Mouth, Daily, # 30 tablet, Refills 3, Tot. Refills 3, Maintenance, 10/01/20 9:26:00 EDT, Route to Pharmacy Electronically, [facility], Partial fill upon patient request if the prescription is for a schedule II opioid arturo... Start Date: 10/01/20 Status: OrderedmetFORMIN 500 mg oral tablet 1 tablet, By Mouth, 2 times a day, with meals, # 60 tablet, 5 Refills, Maintenance, 05/05/21 8:53:00EST, [facility], 170.18, cm, 10/15/20 9:42:00 EDT, Height [...] Pre-diabetes(Confirmed) Active Severe obesity(Confirmed) Active Tobacco abuse(Confirmed) 1997 Active 1Mom is court appointed guardian as of 11/10/2010, Anjelica Valentinetatiana Social History Social History Type Response Tobacco Use: 4 or less cigarettes(le ss than 1/4 pack)/day in last 30 days. Other: 1 - 2 ciggs per day. Sex Female
--- OUTSIDE RECORDS SUMMARY | 2022-03-19 13:43 | XMS_ITS | Continuity of Care Document ---
:1980 Author Organization [facility] Address [address] [place] [address]- Care Team Providers Name Role Phone Tiana FERNANDEZ, Mary Jo Sylvester Primary Care Physician En[place] [facility] [place] Date(s): 01/29/21 - 02/28/21 [facility] [address] [place] [id number] Allergies, Adverse Reactions, Alerts Substance Reaction Severity [...] 30 capsule, 6 Refills, 10/01/20 11:21:00 EDT, [facility], 170.18, cm, 09/25/20 11:03:00 EDT, Height Start Date: 10/01/20 Status: OrderedFlonase 50 mcg/inh nasal spray 1 sprays, Nares, Both, Daily, in each nostril, # 1 each, 11 Refills, Maintenance, 10/01/20 9:30:00 EDT, [facility], 1 sprays Nares, Both Daily,Instr:in each [...] tablet, 0 Refills, Maintenance, 10/31/20 15:17:00 EDT, [id number], 28, TAKE 1 TABLET BY MOUTH EVERY DAY STARTING 1ST DAY OF MENSTRUAL CYCLE, 170.18, cm, 10/15/20 9:42:00 EDT, H... Start Date: 10/31/20 Status: Orderedloratadine 10 mg oral tablet 10 mg, 1, tablet, By Mouth, Daily, # 30 tablet, Refills 3, Tot. Refills 3, Maintenance, 10/01/20 9:26:00 EDT, Route to Pharmacy Electronically, [facility], Partial fill upon patient request if the prescription is for a schedule II opioid arturo... Start Date: 10/01/20 Status: OrderedmetFORMIN 500 mg oral tablet 1 tablet, By Mouth, 2 times a day, with meals, # 60 tablet, 5 Refills, Maintenance, 10/01/20 9:28:00EDT, [facility], 170.18, cm, 09/25/20 11:03:00 EDT, Height [...]
--- OUTSIDE RECORDS SUMMARY | 2022-03-19 13:43 | XMS_ITS | Continuity of Care Document ---
:1980 Author Organization [facility] Address [address] [place] [address]- Care Team Providers Name Role Phone Ej ZENG, Florence Glass Primary Care Physician [phone] Encounter [facility] [place] Date(s): 01/14/20 - 01/14/[address] [address] [facility] Encounter Diagnosis Foul smelling vaginal discharge (Final) - 01/14/20 Discharge Disposition: A-D/C Home Attending Physician: Lars Castro MD Admitting Physician: Lars Castro MD Referring Physician: Not on Staff, Referring [...] Status: OrderedDOK sodium 100 mg oral capsule 1 capsule, By Mouth, 2 times a day, PRN NEEDED FOR CONSTIPATIOMN, # 20 capsule, 10 Refills, Maintenance, 01/04/20 11:19:00 EDT, [facility], 170.18, cm, 04/21/19 10:18:00 EST, Height Start Date: 01/04/20 Status: OrderedFlonase 50 mcg/inh nasal spray 1 [...] 2 Refills, Maintenance, 11/29/19 15:32:00 EDT, Tablet, [facility], 170.18, cm, 04/21/19 10:18:00 EST, Height Start [...] appointed guardian as of 11/10/2010, Anjelica Hong Results Orders for Microbiology Reports Name Date Wet Prep 01/14/20 Microbiology Reports TEST:Wet Prep STATUS:Auth (Verified) BODY SITE: SOURCE:VAGINA COLLECTED DATE/TIME:01/14/20 5:36 AMWet Prep SPECIMEN DESCRIPTION : VAGINAL SPECIMEN SPECIAL REQUESTS : NONE DIRECT EXAM : 1+ WHITE BLOOD CELLS 1+ YEAST NO TRICHOMONAS OBSERVED NO CLUE CELLS OBSERVED REPORT STATUS : FINAL 01/14/2020 Vital Signs Most recent to oldest 1 2 3 [Reference Range]: Oxygen Saturation [94-100 %] 99 % 99 % 99 % (01/14/20 6:28 AM) (01/14/20 5:44 AM) (01/14/20 4:06 AM) Pulse Rate [55-90 bpm] 70 bpm 86 bpm 79 bpm (01/14/20 6:28 AM) (01/14/20 5:44 AM) (01/14/20 4:06 AM) Blood Pressure [90-138/55-84 126/59 mm Hg 138/63 mm Hg 152 /94 mm Hg mm Hg] (01/14/20 6:28 AM) (01/14/20 5:44 AM) *H* (01/14/20 4:06 A M) Respiratory Rate [16-30 18 br/min 18 br/min 16 br/mi n br/min] (01/14/20 6:28 AM) (01/14/20 5:44 AM) (01/14/20 4:06 AM) Temperature [96.8-100.4 98.4 DegF 98.2 DegF DegF] (01/14/20 6:28 AM) (01/14/20 4:06 AM) Mode of Delivery (Oxygen) Room air Room air Room a ir (01/14/20 6:28 AM) (01/14/20 5:44 AM) (01/14/20 4:06 AM) Blood pressure sites Arm, right Arm, right (01/14/20 6:28 AM) (01/14/20 5:44 AM) Temperature Route Oral Oral (01/14/20 6:28 AM) (01/14/20 4:06 AM) Social History Social History Type Response Smoking Status Current every day smoker entered on: 03/10/17 Sex Female
--- OUTSIDE RECORDS SUMMARY | 2022-03-19 13:43 | XMS_ITS | Continuity of Care Document ---
:1980 Author Organization [facility] Address [address] [place] [address]- Care Team Providers Name Role Phone Not on Staff, PCP Primary Care Physician Unavailable [place] [facility] [place] 10/12[place]19 [place] 11[place]11[place] [facility] [address] [place] [id number] [facility] Attending Physician: Estelita Rai Admitting Physician: AdmtrEstelita Referring Physician: Admtr, Ar8 Allergies, Adverse Reactions, Alerts Substance Reaction Severity Status NKA Active Medications Cogentin Tablet 1 mg, By Mouth, 2 times a day, Refills 0, Maintenance, 03/25/16 14:12:47 Start Date: 03/25/16 Status: OrderedColace sodium 100 mg oral capsule 100 mg, 1, capsule, By Mouth, 2 times a day, # 60 capsule, Refills 5, Tot. Refills 5, Maintenance, 05/09/19 15:13:00 EST, Route to Pharmacy Electronically, [facility]/pharmacy #[id number], 170.18, cm, 04/21/19 10:18:00 EST, [...]
--- OUTSIDE RECORDS SUMMARY | 2022-03-19 13:43 | XMS_ITS | Continuity of Care Document ---
:1980 Author Organization [facility] Adult [facility] Address [address] [place] [address]- Care Team Providers Name Role Phone Tiana FERNANDEZ, Mary Jo Sylvester Primary Care Physician [place] [facility] [place](s): 06/06/20 - 07/06/20 [facility] Medicine [address] [place] [id number] Allergies, Adverse Reactions, Alerts Substance Reaction [...] 30 capsule, 10 Refills, 05/31/20 10:06:00 EST, [facility], 170.18, cm, 05/31/20 9:06:00 EST, Height Start Date: 05/31/20 Status: OrderedFalmina 100 mcg-20 mcg oral tablet 1 tablet, By Mouth, Daily, STARTING ON THE FIRST DAY OF THE MENSTRUAL CYCLE; FOR PCOS, PER ENDOCRINE, # 28 tablet, 4 Refills, Maintenance, 06/07/20 11:55:00 EST, [facility], 28, TAKE 1 TABLETBY MOUTH DAILY STARTING ON THE FIRST DAY OF THE M... Start Date: 06/07/20 Status: OrderedFlonase 50 mcg/inh nasal spray 1 sprays, Nares, Both, Daily, in each nostril, # 1 each, 11 Refills, Maintenance, 05/31/20 10:06:00 EST, [facility], 1 sprays Nares, Both Daily,Instr:in each [...] tablet, 3 Refills, Maintenance, 05/31/20 10:06:00 EST, [facility], 170.18, cm, 05/31/20 9:06:00 EST, Height [...]
--- OUTSIDE RECORDS SUMMARY | 2022-03-19 13:44 | XMS_ITS | Continuity of Care Document ---
:1980 Author Organization [facility] Address [address] [place] [address]- Care Team Providers Name Role Phone Tiana FERNANDEZ, Mary Jo Sylvester Primary Care Physician [place] [facility] [place] [id number] Date(s): 08/19/20 - 10/11/20 [facility] [address] [place] [address]- Attending Physician: Morgan ZENG, Maria Isabel Grewal Admitting Physician: Morgan ZENG, Maria Isabel Grewal Allergies, Adverse Reactions, Alerts Substance Reaction Severity [...] 30 capsule, 6 Refills, 10/01/20 11:21:00 EDT, [facility], 170.18, cm, 09/25/20 11:03:00 EDT, Height Start Date: 10/01/20 Status: OrderedFalmina 100 mcg-20 mcg oral tablet 1 tablet, By Mouth, Daily, STARTING ON THE FIRST DAY OF THE MENSTRUAL CYCLE; FOR PCOS, PER ENDOCRINE, # 28 tablet, 4 Refills, Maintenance, 06/07/20 11:55:00 EST, [facility], 28, TAKE 1 TABLETBY MOUTH DAILY STARTING ON THE FIRST DAY OF THE M... Start Date: 06/07/20 Status: OrderedFlonase 50 mcg/inh nasal spray 1 sprays, Nares, Both, Daily, in each nostril, # 1 each, 11 Refills, Maintenance, 10/01/20 9:30:00 EDT, [facility], 1 sprays Nares, Both Daily,Instr:in each [...] 10/01/20 9:26:00 EDT, Route to Pharmacy Electronically, [facility], Partial fill upon patient request if the prescription is for a schedule II opioid arturo... Start Date: 10/01/20 Status: OrderedmetFORMIN 500 mg oral tablet 1 tablet, By Mouth, 2 times a day, with meals, # 60 tablet, 5 Refills, Maintenance, 10/01/20 9:28:00EDT, [facility], 170.18, cm, 09/25/20 11:03:00 EDT, Height [...]
--- OUTSIDE RECORDS SUMMARY | 2022-03-19 13:44 | XMS_ITS | Continuity of Care Document ---
:1980 Author Organization [facility] Adult [facility] Address [address] [place] [address]- Care Team Providers Name Role Phone Tiana FERNANDEZ, Mary Jo Sylvester Primary Care Physician Encounter [facility] Date(s): 06/27/20 - 07/27/20 [facility] [address] [place] [id number] Attending Physician: Estelita Rai Admitting Physician: Estelita [...] 30 capsule, 10 Refills, 05/31/20 10:06:00 EST, [facility], 170.18, cm, 05/31/20 9:06:00 EST, Height Start Date: 05/31/20 Status: OrderedFalmina 100 mcg-20 mcg oral tablet 1 tablet, By Mouth, Daily, STARTING ON THE FIRST DAY OF THE MENSTRUAL CYCLE; FOR PCOS, PER ENDOCRINE, # 28 tablet, 4 Refills, Maintenance, 06/07/20 11:55:00 EST, [facility], 28, TAKE 1 TABLETBY MOUTH DAILY STARTING ON THE FIRST DAY OF THE M... Start Date: 06/07/20 Status: OrderedFlonase 50 mcg/inh nasal spray 1 sprays, Nares, Both, Daily, in each nostril, # 1 each, 11 Refills, Maintenance, 05/31/20 10:06:00 EST, [facility], 1 sprays Nares, Both Daily,Instr:in each [...] tablet, 3 Refills, Maintenance, 05/31/20 10:06:00 EST, [facility], 170.18, cm, 05/31/20 9:06:00 EST, Height [...]
--- OUTSIDE RECORDS SUMMARY | 2022-03-19 13:44 | XMS_ITS | Continuity of Care Document ---
:1980 Author Organization [facility] Adult Medicine Address [address] [place] [address]- Care Team Providers Name Role Phone Valentina ZENG, Rosamaria Sylvester Primary Care Physician Encounter [facility] Date(s): 04/21/19 - 05/01/19 [facility] [address] [place] [address] Attending Physician: Estelita Rai Admitting Physician: Estelita Rai Referring Physician: AdmtrEstelita Allergies, Adverse Reactions, Alerts Substance Reaction Severity Status NKA Active Medications Cogentin Tablet 1 mg, By Mouth, 2 times a day, Refills 0, Maintenance, 03/25/16 14:12:47 Start Date: 03/25/16 Status: OrderedColace sodium 100 mg oral capsule 100 mg, 1, capsule, By Mouth, 2 times a day, # 60 capsule, Refills 11, Tot. Refills 11, Maintenance,11/08/18 14:45:24 EDT, Route to Pharmacy Electronically, [id number], [facility]/pharmacy #[id number] Start Date: 11/08/18 Status: OrderedDepakote 500 mg oral enteric coated [...]
--- OUTSIDE RECORDS SUMMARY | 2022-03-19 13:44 | XMS_ITS | Continuity of Care Document ---
:1980 Author Organization [facility] Adult Medicine Address [address] [place] [address]- Care Team Providers Name Role Phone Ej ZENG, Florence Glass Primary Care Physician Encounter [facility] [place] Date(s): 12/26/19 - 01/25/20 [facility] Adult Medicine [address] [place] [address]- [facility] Allergies, Adverse Reactions, Alerts Substance Reaction [...] CONSTIPATIOMN, # 30 capsule, 10 Refills, Maintenance, [facility], 170.18, cm, 04/21/19 10:18:00 EST, Height Start Date: 01/22/20 Status: OrderedFlonase 50 mcg/inh nasal spray 1 sprays, Nares, Both, Daily, # 1 each, 11 Refills, Maintenance, 11/08/18 14:45:31 EDT, 1 sprays Nares, Both Daily Start Date: 11/08/18 Status: OrderedFluconazole 150 mg, Once, Acute, 01/16/20 10:41:00 EDT Start Date: 01/16/20 Status: Orderedhaloperidol 5 mg oral tablet 5 mg, 1, tablet, By Mouth, Daily, Refills 0, Maintenance, 04/21/19 10:28:00 EST Start Date: 04/21/19 Status: OrderedmetFORMIN 500 mg oral tablet 1 tablet = 500 mg, By Mouth, 2 times a day, # 60 tablet, 2 Refills, Maintenance, 11/29/19 15:32:00 EDT, Tablet, [facility], 170.18, cm, 04/21/19 10:18:00 EST, Height [...] court appointed guardian as of 11/10/2010, Anjelica oHng Social History Social History Type Response Smoking Status Current every day smoker entered on: 03/10/17 Sex Female
--- OUTSIDE RECORDS SUMMARY | 2022-03-19 13:44 | XMS_ITS | Continuity of Care Document ---
:1980 Author Organization [facility] Adult Medicine Address [address] [place] [address]- Care Team Providers Name Role Phone Ej ZENG, lForence Glass Primary Care Physician [phone] Encounter [facility] [place] 01/29/20 - 03/20/20 [facility] Adult Medicine [address] [place] [id number] Attending Physician: Not on Staff, Attending MD Referring Physician: Florence Pagan NP Allergies, Adverse Reactions, Alerts Substance Reaction Severity [...] CONSTIPATIOMN, # 30 capsule, 10 Refills, Maintenance, [facility], 170.18, cm, 04/21/19 10:18:00 EST, Height Start Date: 01/22/20 Status: OrderedFlonase 50 mcg/inh nasal spray 1 sprays, Nares, Both, Daily, # 1 each, 11 Refills, Maintenance, 03/19/20 17:45:00 EST, [facility], 1 sprays Nares, Both Daily, 170.18, [...] 2 Refills, Maintenance, 11/29/19 15:32:00 EDT, Tablet, [facility], 170.18, cm, 04/21/19 10:18:00 EST, Height Start [...]
--- OUTSIDE RECORDS SUMMARY | 2022-03-19 13:44 | XMS_ITS | Continuity of Care Document ---
:1980 Author Organization [facility] Adult Medicine Address [address] [place] [address]- Care Team Providers Name Role Phone Tiana FERNANDEZ, Mary Jo Sylvester Primary Care Physician En[place] [facility] [place] Date(s): 03/19/20 - 04/18/20 [facility] Adult Medicine [address] [place] [id number] Allergies, Adverse Reactions, Alerts Substance [...] CONSTIPATIOMN, # 30 capsule, 10 Refills, Maintenance, [facility], 170.18, cm, 04/21/19 10:18:00 EST, Height Start Date: 01/22/20 Status: OrderedFlonase 50 mcg/inh nasal spray 1 sprays, Nares, Both, Daily, # 1 each, 11 Refills, Maintenance, 03/19/20 17:45:00 EST, [facility], 1 sprays Nares, Both Daily, 170.18, [...] tablet, 1 Refills, Maintenance, 03/26/20 11:29:00 EST, [facility], 170.18, cm, 04/21/19 10:18:00 EST, Height [...]
--- OUTSIDE RECORDS SUMMARY | 2022-03-19 13:44 | XMS_ITS | Continuity of Care Document ---
:1980 Author Organization [facility] Adult Medicine Address [address] [place] [address]- Care Team Providers Name Role Phone Ej ZENG, Florence Glass Primary Care Physician [phone] [place] [facility] [place]s): 01/09/20 - 02/08/20 [facility] Adult Medicine [address] [place] [id number] Allergies, Adverse Reactions, Alerts Substance [...] CONSTIPATIOMN, # 30 capsule, 10 Refills, Maintenance, [facility], 170.18, cm, 04/21/19 10:18:00 EST, Height [...] 2 Refills, Maintenance, 11/29/19 15:32:00 EDT, Tablet, [facility], 170.18, cm, 04/21/19 10:18:00 EST, Height [...]
--- OUTSIDE RECORDS SUMMARY | 2022-03-19 13:44 | XMS_ITS | Continuity of Care Document ---
:1980 Author Organization [facility] Address [address] [place] [address]- Care Team Providers Name Role Phone Ej ZENG, Florence Glass Primary Care Physician [phone] [place] [facility] [place]13[place] - 01/14/[address] [address]- [facility] Discharge Disposition: A-D/C Walkout Attending Physician: Not on Staff, Attending MD Admitting Physician: Not on Staff, Admitting MD Referring Physician: Not on Staff, Referring [...] capsule, 10 Refills, Maintenance, 01/04/20 11:19:00 EDT, [facility], 170.18, cm, 04/21/19 10:18:00 EST, Height [...] 2 Refills, Maintenance, 11/29/19 15:32:00 EDT, Tablet, [facility], 170.18, cm, 04/21/19 10:18:00 EST, Height [...] Hong Vital Signs Most recent to oldest 1 2 3 [Reference Range]: Oxygen Saturation [94-100 100 % 10 % 100 % %] (01/14/20 1:27 AM) *L* (01/13/20 9:2 0 PM) (01/13/20 11:36 PM) Pulse Rate [55-90 bpm] 95 bpm 70 bpm 86 bpm *H* (01/13/20 11:36 PM) (01/13/20 9: 20 PM) (01/14/20 1:27 AM) Blood Pressure 154/92 mm Hg 125/83 mm Hg 158/93 mm Hg [90-138/55-84 mm Hg] *H* (01/13/20 11:36 PM) *H* (01/14/20 1:27 AM) (01/13/20 9:2 0 PM) Respiratory Rate [16-30 16 br/min 22 br/min 18 br/mi n br/min] (01/14/20 1:27 AM) (01/13/20 11:36 PM) (01/13/20 9:20 PM) Temperature [96.8-100.4 97.7 DegF 98.2 DegF 97.7 Deg F DegF] (01/14/20 1:27 AM) (01/13/20 11:36 PM) (01/13/20 6:41 PM) Mode of Delivery (Oxygen) Nasal cannula Room air Room a ir (01/14/20 1:27 AM) (01/13/20 11:36 PM) (01/13/20 9:20 PM) Blood pressure sites Arm, right Arm, right Arm, right (01/14/20 1:27 AM) (01/13/20 11:36 PM) (01/13/20 9:20 PM) Temperature Route Oral Oral Oral (01/14/20 1:27 AM) (01/13/20 11:36 PM) (01/13/20 6:41 PM) Social History Social History Type Response Smoking Status Current every day smoker entered on: 03/10/17 Sex Female
--- OUTSIDE RECORDS SUMMARY | 2022-03-19 13:44 | XMS_ITS | Continuity of Care Document ---
:1980 Author Organization [facility] Adult Medicine Address [address] [place] [address]- Care Team Providers Name Role Phone Tiana FERANNDEZ, Mary Jo Sylvester Primary Care Physician En[place] [facility] [place] Date(s): 06/10/21 - 07/31/21 [facility] Adult Medicine [address] [place] [id number]- Attending Physician: Morgan ZENG, Maria Isabel Grewal Admitting Physician: Morgan ZENG, Maria Isabel Grewal Allergies, Adverse Reactions, Alerts No Known Allergies [...] KNEE PAIN, # 100 Gm, 0 Refills, [facility], 30, APPLY TO AFFECTED AREA FOUR TIMES DAILY NEEDED FOR LEFT KNEE PAIN, 170.18, cm, 06/10/21 10:20:00 EST, Height Start Date: 07/07/21 Status: Ordereddocusate sodium 100 mg oral capsule 1 capsule, By Mouth, 2 times a day, # 30 capsule, 5 Refills, [facility], 170.18, cm, 10/15/20 9:42:00 EDT, Height Start Date: 04/17/21 Status: OrderedFlonase 50 mcg/inh nasal spray 1 sprays, Nares, Both, Daily, in each nostril, # 1 each, 11 Refills, Maintenance, 10/01/20 9:30:00 EDT, [facility], 1 sprays Nares, Both Daily,Instr:in each [...] tablet, 0 Refills, Maintenance, 10/31/20 15:17:00 EDT, [facility], 28, TAKE 1 TABLET BY MOUTH EVERY DAY STARTING 1ST DAY OF MENSTRUAL CYCLE, 170.18, cm, 10/15/20 9:42:00 EDT, H... Start Date: 10/31/20 Status: Orderedloratadine 10 mg oral tablet 10 mg, 1, tablet, By Mouth, Daily, # 30 tablet, Refills 3, Tot. Refills 3, Maintenance, 10/01/20 9:26:00 EDT, Route to Pharmacy Electronically, [facility], Partial fill upon patient request if the prescription is for a schedule II opioid arturo... Start Date: 10/01/20 Status: OrderedmetFORMIN 500 mg oral tablet 1 tablet, By Mouth, 2 times a day, with meals, # 60 tablet, 5 Refills, Maintenance, 05/05/21 8:53:00EST, [facility], 170.18, cm, 10/15/20 9:42:00 EDT, Height [...]
--- OUTSIDE RECORDS SUMMARY | 2022-03-19 13:44 | XMS_ITS | Continuity of Care Document ---
:1980 Author Organization [facility] Adult Medicine Address [address] [place] [address]- Care Team Providers Name Role Phone Ej ZENG, Florence Glass Primary Care Physician Encounter [facility] [place] Date(s): 02/19/20 - 03/29/20 [facility] Adult Medicine [address] [place], [place] [address] Attending Physician: Morgan ZENG, Maria Isabel Grewal [...] CONSTIPATIOMN, # 30 capsule, 10 Refills, Maintenance, [facility], 170.18, cm, 04/21/19 10:18:00 EST, Height Start Date: 01/22/20 Status: OrderedFlonase 50 mcg/inh nasal spray 1 sprays, Nares, Both, Daily, # 1 each, 11 Refills, Maintenance, 03/19/20 17:45:00 EST, [facility], 1 sprays Nares, Both Daily, 170.18, [...] tablet, 1 Refills, Maintenance, 03/26/20 11:29:00 EST, [facility], 170.18, cm, 04/21/19 10:18:00 EST, Height [...]
--- OUTSIDE RECORDS SUMMARY | 2022-03-19 13:44 | XMS_ITS | Continuity of Care Document ---
:1980 Author Organization [facility] Address [address] [place] [address]- Care Team Providers Name Role Phone Not on Staff, PCP Primary Care Physician Unavailable Encounter [facility] [place] Date(s): 11/22/19 - 11/22/[address] [address]- [facility] Encounter Diagnosis Myalgia (Final) - 11/22/19 Discharge Disposition: A-D/C Home Attending Physician: Dari Willis MD Admitting Physician: Dari Willis MD Referring Physician: Not on Staff, Referring [...] 05/09/19 15:13:00 EST, Route to Pharmacy Electronically, [facility]/pharmacy #[id number], 170.18, cm, 04/21/19 10:18:00 EST, Height, [...] 2 Oxygen Saturation [94-100 %] 100 % 100 % (11/22/19 9:53 PM) (11/22/19 6:19 PM) Pulse Rate [55-90 bpm] 83 bpm 89 bpm (11/22/19 9:53 PM) (11/22/19 6:19 PM) Blood Pressure [90-138/55-84 mm Hg] 122/67 mm Hg 122/ 76 mm Hg (11/22/19 9:53 PM) (11/22/19 6:19 PM) Respiratory Rate [16-30 br/min] 15 br/min 16 br/mi n *L* (11/22/19 6:19 PM) (11/22/19 9:53 PM) Temperature [96.8-100.4 DegF] 98.8 DegF (11/22/19 6:19 PM) Mode of Delivery (Oxygen) Room air (11/22/19 6:19 PM) Blood pressure sites Arm, left (11/22/19 6:19 PM) Temperature Route Oral (11/22/19 6:19 PM) Social History Social History Type Response Smoking Status Current every day smoker entered on: 03/10/17 Sex Female
--- OUTSIDE RECORDS SUMMARY | 2022-03-19 13:44 | XMS_ITS | Continuity of Care Document ---
:1980 Author Organization [facility] Adult Medicine Address [address] [place] [address]- Care Team Providers Name Role Phone Viry Duvall MD Primary Care Physician [place] [facility] [place] Date(s): 11/12/21 - 12/12/21 [facility] Adult Medicine [address] [place] [address]- Attending Physician: Estelita Rai Admitting Physician: Estelita [...] 100 Gm, 3 Refills, 11/12/21 13:32:00 EDT, [facility], 30, APPLY TO AFFECTED AREA FOUR [...] capsule, 0 Refills, Maintenance, 12/09/21 13:30:00 EDT, [facility], 170.18, cm, 11/12/21 13:13:00 EDT, Height, [...] EVERY DAY, # 16 each, 10 Refills, [facility], 30, INSTILL 1 SPRAY INTO BOTH NOSTRILS EVERY DAY, 170.18, cm, 07/22/21 10:56:00 EDT, Height,131, kg, 09/11/21 13:09:00 EDT, Dry Weight Start Date: 10/21/21 Status: OrderedLarissia 100 mcg-20 mcg oral tablet 1 tablet, By Mouth, Daily, STARTING 1ST DAY OF MENSTRUAL CYCLE., # 28 tablet, 6 Refills, Maintenance, 10/16/21 17:19:00 EDT, [facility], 1 tablet By Mouth Daily,Instr:STARTING 1ST DAY OF MENSTRUAL CYCLE., 170.18, cm, 07/22/21 10:56:00 EDT, H... Start Date: 10/16/21 Status: OrderedmetFORMIN 500 mg oral tablet 1 tablet, By Mouth, 2 times a day, with meals, # 60 tablet, 5 Refills, Maintenance, 11/12/21 13:31:00 EDT, [facility], 170.18, cm, 11/12/21 13:13:00 EDT, Height, [...] - 2 ciggs per day. Sex Female Care Team PersonnelName: Viry Duvall MD Address: [address] [place] [address] [place] [address]-
--- OUTSIDE RECORDS SUMMARY | 2022-03-19 13:44 | XMS_ITS | Continuity of Care Document ---
:1980 Author Organization [facility] Adult Medicine Address [address] [place] [address]- Care Team Providers Name Role Phone Ej ZENG, Florence Glass Primary Care Physician [phone] Encounter [facility] [place] Date(s): 03/14/20 - 04/13/20 [facility] Adult Medicine [address] [place] [id number] Allergies, Adverse Reactions, Alerts Substance Reaction [...] CONSTIPATIOMN, # 30 capsule, 10 Refills, Maintenance, [facility], 170.18, cm, 04/21/19 10:18:00 EST, Height Start Date: 01/22/20 Status: OrderedFlonase 50 mcg/inh nasal spray 1 sprays, Nares, Both, Daily, # 1 each, 11 Refills, Maintenance, 03/19/20 17:45:00 EST, [facility], 1 sprays Nares, Both Daily, 170.18, [...] tablet, 1 Refills, Maintenance, 03/26/20 11:29:00 EST, [facility], 170.18, cm, 04/21/19 10:18:00 EST, Height [...]
--- OUTSIDE RECORDS SUMMARY | 2022-03-19 13:44 | XMS_ITS | Continuity of Care Document ---
:1980 Author Organization [facility] Adult Medicine Address [address] [place] [address]- Care Team Providers Name Role Phone Tiana FERNANDEZ, Mary Jo Sylvester Primary Care Physician En[place] [facility] [place] Date(s): 09/11/21 - 10/11/21 [facility] Adult Medicine [address] [place] [address]- Allergies, Adverse Reactions, Alerts No Known Allergies [...] KNEE PAIN, # 100 Gm, 0 Refills, [facility], 30, APPLY TO AFFECTED AREA FOUR TIMES DAILY NEEDED FOR LEFT KNEE PAIN, 170.18, cm, 07/22/21 10:56:00 EDT, Height Start Date: 08/04/21 Status: Ordereddocusate sodium 100 mg oral capsule 1 capsule, By Mouth, 2 times a day, # 30 capsule, 5 Refills, [facility], 170.18, cm, 10/15/20 9:42:00 EDT, Height Start Date: 04/17/21 Status: OrderedFlonase 50 mcg/inh nasal spray 1 sprays, Nares, Both, Daily, in each nostril, # 1 each, 11 Refills, Maintenance, 10/01/20 9:30:00 EDT, [facility], 1 sprays Nares, Both Daily,Instr:in each [...] tablet, 0 Refills, Maintenance, 10/31/20 15:17:00 EDT, [facility], 28, TAKE 1 TABLET BY MOUTH EVERY DAY STARTING 1ST DAY OF MENSTRUAL CYCLE, 170.18, cm, 10/15/20 9:42:00 EDT, H... Start Date: 10/31/20 Status: Orderedloratadine 10 mg oral tablet 10 mg, 1, tablet, By Mouth, Daily, # 30 tablet, Refills 3, Tot. Refills 3, Maintenance, 10/01/20 9:26:00 EDT, Route to Pharmacy Electronically, [facility], Partial fill upon patient request if the prescription is for a schedule II opioid arturo... Start Date: 10/01/20 Status: OrderedmetFORMIN 500 mg oral tablet 1 tablet, By Mouth, 2 times a day, with meals, # 60 tablet, 5 Refills, Maintenance, 05/05/21 8:53:00EST, [facility], 170.18, cm, 10/15/20 9:42:00 EDT, Height [...]
--- OUTSIDE RECORDS SUMMARY | 2022-03-19 13:44 | XMS_ITS | Continuity of Care Document ---
:1980 Author Organization [facility] Address [address] [place] [address]- Care Team Providers Name Role Phone Mary Jo Montiel MD Primary Care Physician [place] [facility] [place] 09/11/21 - 09/11/[address] [address]- Encounter Diagnosis Encounter for medical screening examination (Final) - 09/11/21 Discharge Disposition: A-D/C Home Attending Physician: Doug Alexander DO Admitting Physician: Doug Alexander DO Referring Physician: Not on Staff, Referring MD Allergies, Adverse Reactions, Alerts No Known [...] KNEE PAIN, # 100 Gm, 0 Refills, [facility], 30, APPLY TO AFFECTED AREA FOUR TIMES DAILY NEEDED FOR LEFT KNEE PAIN, 170.18, cm, 07/22/21 10:56:00 EDT, Height Start Date: 08/04/21 Status: Ordereddocusate sodium 100 mg oral capsule 1 capsule, By Mouth, 2 times a day, # 30 capsule, 5 Refills, [facility], 170.18, cm, 10/15/20 9:42:00 EDT, Height Start Date: 04/17/21 Status: OrderedFlonase 50 mcg/inh nasal spray 1 sprays, Nares, Both, Daily, in each nostril, # 1 each, 11 Refills, Maintenance, 10/01/20 9:30:00 EDT, [facility], 1 sprays Nares, Both Daily,Instr:in each [...] tablet, 0 Refills, Maintenance, 10/31/20 15:17:00 EDT, [facility], 28, TAKE 1 TABLET BY MOUTH EVERY DAY STARTING 1ST DAY OF MENSTRUAL CYCLE, 170.18, cm, 10/15/20 9:42:00 EDT, H... Start Date: 10/31/20 Status: Orderedloratadine 10 mg oral tablet 10 mg, 1, tablet, By Mouth, Daily, # 30 tablet, Refills 3, Tot. Refills 3, Maintenance, 10/01/20 9:26:00 EDT, Route to Pharmacy Electronically, [facility], Partial fill upon patient request if the prescription is for a schedule II opioid arturo... Start Date: 10/01/20 Status: OrderedmetFORMIN 500 mg oral tablet 1 tablet, By Mouth, 2 times a day, with meals, # 60 tablet, 5 Refills, Maintenance, 05/05/21 8:53:00EST, [facility], 170.18, cm, 10/15/20 9:42:00 EDT, Height [...] recent to oldest [Reference Range]: 1 2 Weight 131 kg 131 kg (09/11/21 1:09 PM) (09/11/21 10:30 AM) Oxygen Saturation [94-100 %] 99 % (09/11/21 10:27 AM) Pulse Rate [55-90 bpm] 96 bpm 98 bpm *H* *H* (09/11/21 10:30 AM) (09/11/21 10:27 AM) Blood Pressure [90-138/55-84 mm Hg] 105/68 mm Hg (09/11/21 10:30 AM) Respiratory Rate [16-30 br/min] 18 br/min (09/11/21 10:30 AM) Temperature [96.8-100.4 DegF] 98.0 DegF (09/11/21 10:30 AM) Mode of Delivery (Oxygen) Room air Room air (09/11/21 10:30 AM) (09/11/21 10:27 AM) Blood pressure sites Arm, right (09/11/21 10:30 AM) Temperature Route Oral (09/11/21 10:30 AM) Dry Weight 131 kg 131 kg (09/11/21 1:09 PM) (09/11/21 10:30 AM) Weight Obtained Via Standing scale (09/11/21 10:30 AM) Dry Weight Obtained Via Standing scale (09/11/21 10:30 AM) Social History Social History Type Response Tobacco Use: 4 or less cigarettes(le ss than 1/4 pack)/day in last 30 days. Other: 1 - 2 ciggs per day. Sex Female
--- OUTSIDE RECORDS SUMMARY | 2022-03-19 13:44 | XMS_ITS | Continuity of Care Document ---
:1980 Author Organization [facility] Adult Medicine Address [address] [place] [address]- Care Team Providers Name Role Phone Tiana FERNANDEZ, Mary Jo Sylvester Primary Care Physician Encounter [facility] [place] Date(s): 01/22/21 - 02/21/21 [facility] Adult Medicine [address] [place] [id number] Allergies, Adverse Reactions, Alerts Substance Reaction [...] 30 capsule, 6 Refills, 10/01/20 11:21:00 EDT, [facility], 170.18, cm, 09/25/20 11:03:00 EDT, Height Start Date: 10/01/20 Status: OrderedFlonase 50 mcg/inh nasal spray 1 sprays, Nares, Both, Daily, in each nostril, # 1 each, 11 Refills, Maintenance, 10/01/20 9:30:00 EDT, [facility], 1 sprays Nares, Both Daily,Instr:in each [...] tablet, 0 Refills, Maintenance, 10/31/20 15:17:00 EDT, [facility], 28, TAKE 1 TABLET BY MOUTH EVERY DAY STARTING 1ST DAY OF MENSTRUAL CYCLE, 170.18, cm, 10/15/20 9:42:00 EDT, H... Start Date: 10/31/20 Status: Orderedloratadine 10 mg oral tablet 10 mg, 1, tablet, By Mouth, Daily, # 30 tablet, Refills 3, Tot. Refills 3, Maintenance, 10/01/20 9:26:00 EDT, Route to Pharmacy Electronically, [facility], Partial fill upon patient request if the prescription is for a schedule II opioid arturo... Start Date: 10/01/20 Status: OrderedmetFORMIN 500 mg oral tablet 1 tablet, By Mouth, 2 times a day, with meals, # 60 tablet, 5 Refills, Maintenance, 10/01/20 9:28:00EDT, [facility], 170.18, cm, 09/25/20 11:03:00 EDT, Height [...]
--- OUTSIDE RECORDS SUMMARY | 2022-03-19 13:44 | XMS_ITS | Continuity of Care Document ---
:1980 Author Organization [facility] Adult Medicine Address [address] [place] [address]- Care Team Providers Name Role Phone Tiana FERNANDEZ, Mary Jo Sylvester Primary Care Physician [place] [facility] [place] 11/27/20 [facility] Adult Medicine [address] [place] [id number] Allergies, Adverse Reactions, Alerts [...] 30 capsule, 6 Refills, 10/01/20 11:21:00 EDT, [facility], 170.18, cm, 09/25/20 11:03:00 EDT, Height Start Date: 10/01/20 Status: OrderedFlonase 50 mcg/inh nasal spray 1 sprays, Nares, Both, Daily, in each nostril, # 1 each, 11 Refills, Maintenance, 10/01/20 9:30:00 EDT, [facility], 1 sprays Nares, Both Daily,Instr:in each [...] tablet, 0 Refills, Maintenance, 10/31/20 15:17:00 EDT, [facility], 28, TAKE 1 TABLET BY MOUTH EVERY DAY STARTING 1ST DAY OF MENSTRUAL CYCLE, 170.18, cm, 10/15/20 9:42:00 EDT, H... Start Date: 10/31/20 Status: Orderedloratadine 10 mg oral tablet 10 mg, 1, tablet, By Mouth, Daily, # 30 tablet, Refills 3, Tot. Refills 3, Maintenance, 10/01/20 9:26:00 EDT, Route to Pharmacy Electronically, [facility], Partial fill upon patient request if the prescription is for a schedule II opioid arturo... Start Date: 10/01/20 Status: OrderedmetFORMIN 500 mg oral tablet 1 tablet, By Mouth, 2 times a day, with meals, # 60 tablet, 5 Refills, Maintenance, 10/01/20 9:28:00EDT, [facility], 170.18, cm, 09/25/20 11:03:00 EDT, Height [...]
--- OUTSIDE RECORDS SUMMARY | 2022-03-19 13:44 | XMS_ITS | Continuity of Care Document ---
:1980 Author Organization [facility] Address [address] [place] [address]- Care Team Providers Name Role Phone Tiana FERNANDEZ, Mary Jo Sylvester Primary Care Physician [phone] Encounter [facility] Date(s): 09/19/20 - 10/19/20 [facility] [address] [place] [id number] Allergies, Adverse Reactions, Alerts Substance [...] 30 capsule, 6 Refills, 10/01/20 11:21:00 EDT, [facility], 170.18, cm, 09/25/20 11:03:00 EDT, Height Start Date: 10/01/20 Status: OrderedFalmina 100 mcg-20 mcg oral tablet 1 tablet, By Mouth, Daily, STARTING ON THE FIRST DAY OF THE MENSTRUAL CYCLE; FOR PCOS, PER ENDOCRINE, # 28 tablet, 11 Refills, Maintenance, 10/15/20 10:35:00 EDT, [facility], 28, 1 tablet By Mouth Daily,Instr:STARTING ON THE FIRST DAY OF THE... Start Date: 10/15/20 Status: OrderedFlonase 50 mcg/inh nasal spray 1 sprays, Nares, Both, Daily, in each nostril, # 1 each, 11 Refills, Maintenance, 10/01/20 9:30:00 EDT, [facility], 1 sprays Nares, Both Daily,Instr:in each [...] 10/01/20 9:26:00 EDT, Route to Pharmacy Electronically, [facility], Partial fill upon patient request if the prescription is for a schedule II opioid arturo... Start Date: 10/01/20 Status: OrderedmetFORMIN 500 mg oral tablet 1 tablet, By Mouth, 2 times a day, with meals, # 60 tablet, 5 Refills, Maintenance, 10/01/20 9:28:00EDT, [facility], 170.18, cm, 09/25/20 11:03:00 EDT, Height [...]
--- OUTSIDE RECORDS SUMMARY | 2022-03-19 13:44 | XMS_ITS | Continuity of Care Document ---
:1980 Author Organization [facility] Address [address] [place] [address]- Care Team Providers Name Role Phone Tiana FERNANDEZ, Mary Jo Sylvester Primary Care Physician Encounter [facility] [place] Date(s): 08/15/20 - 09/14/20 [facility] [address] [place] [id number] Allergies, Adverse Reactions, Alerts [...] 30 capsule, 10 Refills, 05/31/20 10:06:00 EST, [facility], 170.18, cm, 05/31/20 9:06:00 EST, Height Start Date: 05/31/20 Status: OrderedFalmina 100 mcg-20 mcg oral tablet 1 tablet, By Mouth, Daily, STARTING ON THE FIRST DAY OF THE MENSTRUAL CYCLE; FOR PCOS, PER ENDOCRINE, # 28 tablet, 4 Refills, Maintenance, 06/07/20 11:55:00 EST, [facility], 28, TAKE 1 TABLETBY MOUTH DAILY STARTING ON THE FIRST DAY OF THE M... Start Date: 06/07/20 Status: OrderedFlonase 50 mcg/inh nasal spray 1 sprays, Nares, Both, Daily, in each nostril, # 1 each, 11 Refills, Maintenance, 05/31/20 10:06:00 EST, [facility], 1 sprays Nares, Both Daily,Instr:in each [...] 08/13/20 11:23:00 EDT, Route to Pharmacy Electronically, [facility], Partial fill upon patient request if the prescription is for a schedule II opioid . Start Date: 08/13/20 Status: OrderedmetFORMIN 500 mg oral tablet 1 tablet, By Mouth, 2 times a day, with meals, # 60 tablet, 3 Refills, Maintenance, 05/31/20 10:06:00 EST, [facility], 170.18, cm, 05/31/20 9:06:00 EST, Height [...]
[2022-03-19] MEDS: Ibuprofen 600 MG TABLET PO (15:07)
[2022-03-19 16:00] VITALS: RESP 14
[2022-03-19 18:00] VITALS: RESP 16
--- NOTE | 2022-03-19 18:52 | ED_ITS ---
HPI - Psych General Chief Complaint: Psychiatric Symptoms <Mckenna LockhartMELO - Last Filed: 03/19/22 18:59> Stated Complaint: CRISIS,SEC 12 PER EMS <Mckenna LockhartMELO - Last Filed: 03/19/22 18:59> Time Seen by Provider: 03/19/22 11:36 <Mckenna TinajeroMELO ramsey - Last Filed: 03/19/22 18:59> Source: patient and EMS <Mckenna LockhartMELO - Last Filed: 03/19/22 18:59> Mode of arrival: EMS <Mckenna LockhartMELO - Last Filed: 03/19/22 18:59> Limitations: no limitations <Mckenna LockhartMELO - Last Filed: 03/19/22 18:59> History of Present Illness HPI Narrative: Patient is a 41-year-old female who presents to the emergency department via EMS on a Section 12. She was seen by N in the community and was made a bed search. She is currently residing in a fpc, she has reportedly been refusing to take her medications and having increased paranoid behavior. At this time, she expresses vague suicidal ideations without a specific plan. She is also expressing chronic left lateral knee pain, atraumatic in nature, she states that it has been painful for years. She has been taking Tylenol with some relief, but she would like to try ibuprofen at this time. Denies any swelling to the leg, fall, injury. Denies any personal history of DVT/PE, personal history of cancer, or tobacco smoking. <Mckenna Lizarraga MELO Lockhart - Last Filed: 03/19/22 18:59> Related Data Home Medications: Home Medications Medication Instructions Recorded Confirmed benztropine 1 mg tablet 1 mg PO DAILY 03/19/22 03/19/22 diclofenac sodium 1 % topical gel 2 g topical QID 03/19/22 03/19/22 divalproex 500 mg tablet,delayed 1,250 mg PO QPM 03/19/22 03/19/22 release (Depakote) divalproex 500 mg tablet,extended 500 mg PO DAILY 03/19/22 03/19/22 release 24 hr (Depakote ER) docusate sodium 100 mg capsule 100 mg PO BID 03/19/22 03/19/22 escitalopram oxalate 20 mg tablet 20 mg PO DAILY 03/19/22 03/19/22 fluticasone furoate 50 50 mcg inhalation DAILY 03/19/22 03/19/22 mcg/actuation blister powder for inhalation levonorgestrel-ethinyl estradiol 1 tab PO DAILY 03/19/22 03/19/22 0.1 mg-20 mcg tablet metformin 500 mg tablet 500 mg PO BID 03/19/22 03/19/22 olanzapine 20 mg tablet 25 mg PO BEDTIME 03/19/22 03/19/22 trazodone 150 mg tablet 150 mg PO BEDTIME 03/19/22 03/19/22 <Mckenna Lockhart CNP - Last Filed: 03/19/22 18:59> Allergies/Adverse Reactions: Allergies Allergy/AdvReac Type Severity Reaction Status Date / Time No Known Allergies Allergy Verified 03/19/22 11:48 <Mckenna Lockhart CNP - Last Filed: 03/19/22 18:59> Review of Systems Review of Systems: Constitutional : No Fever, No Chills ENT/Mouth : No Ear Pain, No Nasal Congestion, No sore throat Eyes: No Eye Pain, No Swelling, No Redness Cardiovascular : No Chest Pain, No SOB Respiratory : No Cough, No Sputum, No Dyspnea Gastrointestinal : No Nausea, No Vomiting, No Diarrhea, No Hematochezia, No Melena Genitourinary : No Dysuria, No Urinary Frequency, No Hematuria Musculoskeletal : No Myalgias. Positive left knee pain Skin : No Skin Lesions, No rash Neuro : No Weakness, No Numbness, No Paresthesias, No Dizziness, No Headache Psych : positive Anxiety, positive Depression, positive SI/HI Heme/Lymph: No Lymphadenopathy Endocrine : No Polyuria, No Polydipsia <Mckenna Lockhart CNP - Last Filed: 03/19/22 18:59> Yes all other systems are reviewed and are negative <Mckenna Lockhart CNP - Last Filed: 03/19/22 18:59> [facility] Past Medical History Attestation statement: The following information was validated with the patient. <Mckenna Lockhart CNP - Last Filed: 03/19/22 18:59> Source: old records reviewed <Mckenna Lockhart CNP - Last Filed: 03/19/22 18:59> Social History Social History: Social History Alcohol intake: unknown Smoked in Last 30 Days: No Use of substances other than those prescribed or required for medical reasons: Unknown Advance Directives: No Advance Directives Information Provided: No Patient : No <Mckenna Lockhart CNP - Last Filed: 03/19/22 18:59> Physical Exam Vital Signs: Vital Signs: Last Vital Signs Temp 98.7 F 03/19/22 11:35 Pulse 90 03/19/22 11:35 Resp 16 03/19/22 18:00 BP 120/75 03/19/22 11:35 Pulse Ox 98 03/19/22 11:35 O2 Del Method 03/19/22 11:35 BMI result Body Mass Index 51.5 <Mckenna Lockhart CNP - Last Filed: 03/19/22 18:59> Vital Signs: Last Vital Signs Temp 98.7 F 03/19/22 11:35 Pulse 90 03/19/22 11:35 Resp 16 03/19/22 18:00 BP 120/75 03/19/22 11:35 Pulse Ox 98 03/19/22 11:35 O2 Del Method 03/19/22 11:35 BMI result Body Mass Index 51.5 <Sundeep Rouse DO - Last Filed: 03/20/22 07:47> Appearance: Alert.?Oriented to person, place and time. No acute distress.?Normal affect. Eyes: Pupils equal, round and reactive to light.? ENT: Pharynx normal.?? Neck: Normal inspection.? Neck supple.?? CVS: Heart sounds normal. Normal heart rate and rhythm.? Pulses normal.?? Respiratory: No respiratory distress.? Lung sounds clear to auscultation bilaterally?? Abdomen: Soft and non-tender. Normoactive bowel sounds. Skin: Skin warm and dry.? Normal skin color.?? Extremities: No lower extremity edema.? No calf ttp. Left knee with no obvious deformity, laxity upon examination, effusion, erythema, warmth. Neuro: Moves all extremities spontaneously. Sensation intact bilaterally. CN II- XII intact. No focal neuro deficits. Ambulates with normal steady gait. <Mckenna Lockhart CNP - Last Filed: 03/19/22 18:59> Course Reevaluation(s) Reevaluation #1: Labs are overall unremarkable. Viral testing is negative. EKG reveals a normal sinus rhythm without acute ischemic findings. Urinalysis remains pending at this time, she is without any genitourinary symptoms and denies possibility of . Will place patient in physician observation, the reason for observation being that she requires additional time for bed search to continue. She is calm and cooperative. Med reconciliation completed. <Mckenna Lockhart CNP - Last Filed: 03/19/22 18:59> Medications Administered Generic Name Dose Route Start Last Admin Trade Name Freq PRN Reason Stop Dose Admin Divalproex Sodium 1,250 mg 03/19/22 21:00 03/19/22 20:25 Divalproex Sodium 250 Mg Tablet. PO 1,250 mg BEDTIME FAINA Administration Docusate Sodium 100 mg 03/19/22 21:00 03/19/22 20:25 Docusate Sodium 100 Mg Capsule PO 100 mg BID FAINA Administration Metformin HCl 500 mg 03/19/22 21:00 03/19/22 20:25 Metformin Hcl 500 Mg Tablet PO 500 mg BID FAINA Administration Olanzapine 25 mg 03/19/22 21:00 03/19/22 20:25 Olanzapine 5 Mg Tablet PO 25 mg BEDTIME FAINA Administration Trazodone HCl 150 mg 03/19/22 21:00 03/19/22 20:24 Trazodone Hcl 50 Mg Tablet PO 150 mg BEDTIME FAINA Administration Discontinued Medications Generic Name Dose Route Start Last Admin Trade Name Freq PRN Reason Stop Dose Admin Ibuprofen 600 mg 03/19/22 14:22 03/19/22 15:07 Ibuprofen 600 Mg Tablet PO 03/19/22 14:23 600 mg ONCE ONE Administration <Mckenna Lockhart CNP - Last Filed: 03/19/22 18:59> Medications Administered Generic Name Dose Route Start Last Admin Trade Name Freq PRN Reason Stop Dose Admin Divalproex Sodium 1,250 mg 03/19/22 21:00 03/19/22 20:25 Divalproex Sodium 250 Mg Tablet. PO 1,250 mg BEDTIME FAINA Administration Docusate Sodium 100 mg 03/19/22 21:00 03/19/22 20:25 Docusate Sodium 100 Mg Capsule PO 100 mg BID FAINA Administration Metformin HCl 500 mg 03/19/22 21:00 03/19/22 20:25 Metformin Hcl 500 Mg Tablet PO 500 mg BID FAINA Administration Olanzapine 25 mg 03/19/22 21:00 03/19/22 20:25 Olanzapine 5 Mg Tablet PO 25 mg BEDTIME FAINA Administration Trazodone HCl 150 mg 03/19/22 21:00 03/19/22 20:24 Trazodone Hcl 50 Mg Tablet PO 150 mg BEDTIME FAINA Administration Discontinued Medications Generic Name Dose Route Start Last Admin Trade Name Sandroq PRN Reason Stop Dose Admin Ibuprofen 600 mg 03/19/22 14:22 03/19/22 15:07 Ibuprofen 600 Mg Tablet PO 03/19/22 14:23 600 mg ONCE ONE Administration <Sundeep Rouse DO - Last Filed: 03/20/22 07:47> Medical Decision Making Medical Decision Making MDM Narrative: Patient is a 41-year-old female presenting from a fpc today for evaluation of paranoia, non med compliance, and vague suicidal ideations on a Section 12. She has already been made an inpatient bed search from the community. Will obtain basic labs in addition to viral testing, and EKG for m edical clearance. Her physical examination is benign. Left knee appears without acute abnormality, not consistent with septic arthritis. Will provide ibuprofen at this time. PERC negative, not consistent with DVT. Atraumatic, would defer XR imaging at this time. <Mckenna Lockhart CNP - Last Filed: 03/19/22 18:59> Lab Data Result Diagrams: : 03/19/22 12:52 03/19/22 12:52 <Mckenna Lockhart CNP - Last Filed: 03/19/22 18:59> Labs: Lab Results 03/19/22 03/19/22 03/19/22 Range/Units 12:16 12:52 12:52 WBC 7.4 (4.8-10.8) X10*3/uL RBC 4.32 (4.20-5.50) X10*6/uL Hgb 13.3 (12.0-16.0) g/dl Hct 40.5 (37.0-47.0) % MCV 93.8 (80.0-98.0) fL MCH 30.8 (27.0-33.0) pg MCHC 32.8 (31.0-35.0) g/dl RDW 13.6 (11.0-16.0) % Plt Count 173 (160-400) X10*3/uL MPV 11.8 (9.4-12.3) fL Immature Gran % (Auto) 0.3 (0.0-0.4) % Neut % (Auto) 51.2 (45-73) % Lymph % (Auto) 38.8 (20-40) % [place] % (Auto) 8.7 (2-11) % Eos % (Auto) 0.5 (0-4) % Baso % (Auto) 0.5 (0-2) % Lymph # (Auto) 2.9 (1.2-4.9) X10*3/uL [place] # (Auto) 0.6 (0.1-1.2) X10*3/uL Eos # (Auto) 0.0 (0.0-0.4) X10*3/uL Baso # (Auto) 0.0 (0.0-0.2) X10*3/uL Abs Immat Gran (auto) 0.02 (0.00-0.03) X10*3/uL Absolute Neuts (auto) 3.8 (2.0-8.3) x10*3/uL Absolute Nucleated RBC 0.000 (0.0-0.012) X10*3/uL Nucleated RBC % (auto) 0.0 (0.0-0.2) /100WBC Sodium 140 (135-145) mmol/L Potassium 3.9 (3.3-5.1) mmol/L Chloride 106 (96-108) mmol/L Carbon Dioxide 25 (22-29) mmol/L Anion Gap 13 (12-20) BUN 16 (9-16) mg/dL Creatinine 0.77 (0.5-1.4) mg/dL Estim Creat Clear Calc 135.1 Estimated GFR > 60 Random Glucose 108 (60-115) mg/dL Calcium 9.3 (8.4-10.2) mg/dL Total Bilirubin 0.3 (0.0-1.0) mg/dL AST 13 (5-31) U/L ALT 19 (0-31) U/L Alkaline Phosphatase 61 (39-117) U/L Total Protein 7.1 (6.5-8.0) g/dL Albumin 4.0 (3.5-5.0) g/dL Ethyl Alcohol < 10 mg/dL Influenza Type A (PCR) NEGATIVE (Negative) Influenza Type B (PCR) NEGATIVE (Negative) RSV RNA Qual (PCR) NEGATIVE (Negative) SARS-CoV-2 RNA (RT-PCR) NEGATIVE (Negative) <Mckenna Lockhart, [employer] - Last Filed: 03/19/22 18:59> Lab Results 03/19/22 03/19/22 03/19/22 Range/Units 12:16 12:52 12:52 WBC 7.4 (4.8-10.8) X10*3/uL RBC 4.32 (4.20-5.50) X10*6/uL Hgb 13.3 (12.0-16.0) g/dl Hct 40.5 (37.0-47.0) % MCV 93.8 (80.0-98.0) fL MCH 30.8 (27.0-33.0) pg MCHC 32.8 (31.0-35.0) g/dl RDW 13.6 (11.0-16.0) % Plt Count 173 (160-400) X10*3/uL MPV 11.8 (9.4-12.3) fL Immature Gran % (Auto) 0.3 (0.0-0.4) % Neut % (Auto) 51.2 (45-73) % Lymph % (Auto) 38.8 (20-40) % [place] % (Auto) 8.7 (2-11) % Eos % (Auto) 0.5 (0-4) % Baso % (Auto) 0.5 (0-2) % Lymph # (Auto) 2.9 (1.2-4.9) X10*3/uL [place] # (Auto) 0.6 (0.1-1.2) X10*3/uL Eos # (Auto) 0.0 (0.0-0.4) X10*3/uL Baso # (Auto) 0.0 (0.0-0.2) X10*3/uL Abs Immat Gran (auto) 0.02 (0.00-0.03) X10*3/uL Absolute Neuts (auto) 3.8 (2.0-8.3) x10*3/uL Absolute Nucleated RBC 0.000 (0.0-0.012) X10*3/uL Nucleated RBC % (auto) 0.0 (0.0-0.2) /100WBC Sodium 140 (135-145) mmol/L Potassium 3.9 (3.3-5.1) mmol/L Chloride 106 (96-108) mmol/L Carbon Dioxide 25 (22-29) mmol/L Anion Gap 13 (12-20) BUN 16 (9-16) mg/dL Creatinine 0.77 (0.5-1.4) mg/dL Estim Creat Clear Calc 135.1 Estimated GFR > 60 Random Glucose 108 (60-115) mg/dL Calcium 9.3 (8.4-10.2) mg/dL Total Bilirubin 0.3 (0.0-1.0) mg/dL AST 13 (5-31) U/L ALT 19 (0-31) U/L Alkaline Phosphatase 61 (39-117) U/L Total Protein 7.1 (6.5-8.0) g/dL Albumin 4.0 (3.5-5.0) g/dL Ethyl Alcohol < 10 mg/dL Influenza Type A (PCR) NEGATIVE (Negative) Influenza Type B (PCR) NEGATIVE (Negative) RSV RNA Qual (PCR) NEGATIVE (Negative) SARS-CoV-2 RNA (RT-PCR) NEGATIVE (Negative) <Sundeep Rouse DO - Last Filed: 03/20/22 07:47> Discharge Plan Discharge Clinical Impression: Suicidal ideation, Paranoia <Mckenna Lockhart CNP - Last Filed: 03/19/22 18:59> Patient Disposition: Still a Patient <Mckenna Lockhart CNP - Last Filed: 03/19/22 18:59> Prescriptions: No Action metformin 500 mg Tablet 500 mg PO BID levonorgestrel-ethinyl estrad [Larissia] 0.1-20 mg-mcg Tablet 1 tab PO DAILY divalproex [Depakote] 500 mg Tablet,Delayed Release (Dr/Ec) 1,250 mg PO QPM trazodone 150 mg Tablet 150 mg PO BEDTIME divalproex [Depakote ER] 500 mg Tablet Extended Release 24 Hr 500 mg PO DAILY benztropine 1 mg Tablet 1 mg PO DAILY docusate sodium 100 mg Capsule 100 mg PO BID olanzapine 20 mg Tablet 25 mg PO BEDTIME escitalopram oxalate 20 mg Tablet 20 mg PO DAILY diclofenac sodium 1 % Gel 2 g TOPICAL QID Rx Instructions: apply to single elbow, wrist or hand; for hand includes palm/fingers/back of hand fluticasone furoate 50 mcg/actuation Blister With Device 50 mcg INHALATION DAILY <Mckenna Lockhart CNP - Last Filed: 03/19/22 18:59> Interventions: [place]-Suicide Risk Severity Scale Last Done: 03/20/22 06:12 <Mckenna Lockhart CNP - Last Filed: 03/19/22 18:59> ED Observation ED Observation Admit Comment: Patient continues in physician observation no events overnight. Vitals stable still taking medications. <Sundeep Rouse DO - Last Filed: 03/20/22 07:47>
[2022-03-19] MEDS: traZODone HCL 50 MG TABLET 150 MG PO (20:24)
[2022-03-19] MEDS: Divalproex Sodium 250 MG TABLET.DR 1250 MG PO (20:25)
[2022-03-19] MEDS: Docusate Sodium 100 MG CAPSULE PO (20:25)
[2022-03-19] MEDS: metFORMIN HCl 500 MG TABLET PO (20:25)
[2022-03-19] MEDS: OLANZapine 5 MG TABLET 25 MG PO (20:25)
--- NOTE | 2022-03-20 06:06 | PC.NURSE ---
Patient slept through the night, no distress observed/reported, thought process coherent, behavior non concerning, medication compliant, room offered but refused, urine pending, disposition per N from the community is section 12 inpatient bed search, VSS, will continue to monitor.
[2022-03-20] MEDS: Docusate Sodium 100 MG CAPSULE PO ×2 (09:11→22:08)
[2022-03-20] MEDS: metFORMIN HCl 500 MG TABLET PO ×2 (09:11→22:09)
[2022-03-20] MEDS: Benztropine Mesylate 1 MG TABLET PO (09:11)
[2022-03-20] MEDS: Divalproex Sodium ER 500 MG TAB.ER.24H PO (09:12)
[2022-03-20] MEDS: Escitalopram Oxalate 20 MG TABLET PO (09:12)
[2022-03-20] MEDS: Fluticasone Propionate Nasal 16 GM SPRAY 1 SPRAY NOSTRIL-B (09:12)
[2022-03-20 09:17] VITALS: BP 136/73; PULSE 94; RESP 15; TEMP 36.2; O2SAT 95
--- NOTE | 2022-03-20 12:49 | PC.NURSE ---
Pt ambulated to restroom with no assistance, gait stiff though steady. Unable to provide urine specimen at this time.
[2022-03-20 14:00] VITALS: RESP 18
[2022-03-20 16:46] LABS: HCG Quantitative < 2 mIU/mL
[2022-03-20 21:37] VITALS: BP 146/90; PULSE 110; RESP 20; TEMP 36.3; O2SAT 97
[2022-03-20] MEDS: OLANZapine 5 MG TABLET 25 MG PO (22:08)
[2022-03-20] MEDS: traZODone HCL 50 MG TABLET 150 MG PO (22:08)
[2022-03-20] MEDS: Divalproex Sodium 250 MG TABLET.DR 1250 MG PO (22:08)
--- NOTE | 2022-03-20 22:12 | PC.ADMIT ---
Pt is a 41yoF admitted on CV from the pod after her nursing home staff noted significant decompensation in behavior. Pt reportedly injured her left leg around Thanksgiving and since then has been severely depressed, not bathing, refusing medications, refusing to communicate, and recently was found laying in her own feces and urine. Pt is a poor historian, has a documented hx of substance use but denies all use and refused a urine tox. Pt stopped her medications about 1 week ago with no explanation. She has an active [facility] order which expires 05/15/22, there is not currently a copy in her chart. Pt has been paranoid byt cooperative in the hospital, taking medications, no behavioral concerns. She reports she cannot walk due to leg injury, but walks with a steady gait and appears to only need emotional support. Pt denies SI/HI/AVH; she has a history of delusions, AH/VH and responding to internal stimuli.
[2022-03-21] MEDS: Acetaminophen 325 MG TABLET 650 MG PO ×2 (09:12→21:13)
[2022-03-21] MEDS: Escitalopram Oxalate 20 MG TABLET PO (09:12)
[2022-03-21] MEDS: metFORMIN HCl 500 MG TABLET PO ×2 (09:12→20:16)
[2022-03-21] MEDS: Divalproex Sodium ER 500 MG TAB.ER.24H PO (09:13)
[2022-03-21] MEDS: Benztropine Mesylate 1 MG TABLET PO (09:13)
[2022-03-21] MEDS: Docusate Sodium 100 MG CAPSULE PO ×2 (09:13→20:15)
[2022-03-21 09:15] LABS: Estimated Average Glucose 108 mg/dL; Hemoglobin A1c % 5.4 %
[2022-03-21 09:16] LABS: Cholesterol 133 mg/dL; HDL Cholesterol 38 mg/dL; LDL Cholesterol Calculated 79 mg/dl; Triglycerides 84 mg/dL
[2022-03-21] MEDS: Fluticasone Propionate Nasal 16 GM SPRAY 1 SPRAY NOSTRIL-B (09:50)
[2022-03-21 09:58] VITALS: BP 142/80; PULSE 90; RESP 16; TEMP 36.1; O2SAT 95
--- NOTE | 2022-03-21 10:18 | P.HPPS_ITS ---
HPI Date of Service: 03/21/22 Chief Complaint: paranoia/SI Sources of Information: patient interviewed, chart reviewed and crisis/core team assessment reviewed HPI Subjective Notes: Bryan Warning and Conditional Voluntary Narrative: pt is a 41 yo female with dx of schizoaffective disorder, PTSD and cocaine abuse who presents for disorganized behavior in face of going off her medications. Pt reports she has remained on her medications but longterm staff report otherwise. She says her left leg started hurting 2 weeks ago; she also says she had suicidal thoughts 2 weeks ago and was punching her bed frame and the door; she denies any intent or plans to self harm. Pt says she was using crack cocaine but has not since 2 weeks ago. In the ED she says she was unable to produce urine for UDS. Pt denies any current drug/alcohol use. She denies SI, HI, AVH, though she is with thought blocking, latent speech and seems internally preocupied. crisis note reports pt has stopped attending to ADL's, is disheveled; bed has feces and urine on it; she won't engage and is aggressive with others when she comes home; staff believes patient is engaged in polysubstance abuse. Past Psychiatric History: lives in longterm; crisis visits; inpatients hospitalizations Medical Evaluation Reviewed: Yes left leg examination unremarkable [facility] Medical History (Updated 03/21/22 @ 23:13 by Denis Rollins MD) Cocaine abuse PTSD (post-traumatic stress disorder) Schizoaffective disorder Family History: father: hx of psychiatric admissions grandmother: hx of psychiatric admissions Social History: lives in longterm Substance History: crack cocaine; admits to using 2 weeks ago denies other drug use Trauma History: Positive for hx of trauma Diagnostics Vital Signs (24Hr): Vital Signs - 24 hr 03/20/22 14:00 03/20/22 21:37 03/21/22 09:58 Temperature 97.3 F 96.9 F Pulse Rate 110 H 90 Respiratory Rate 18 20 16 Blood Pressure 146/90 H 142/80 H Pulse Oximetry 97 95 Oxygen Delivery Method Room Air Room Air BMI result Body Mass Index 51.5 Labs Results: 03/19/22 12:52 03/19/22 12:52 Labs: Laboratory Results - last 48 hr 03/19/22 03/19/22 03/19/22 12:16 12:52 12:52 WBC 7.4 RBC 4.32 Hgb 13.3 Hct 40.5 MCV 93.8 MCH 30.8 MCHC 32.8 RDW 13.6 Plt Count 173 MPV 11.8 Immature Gran % (Auto) 0.3 Neut % (Auto) 51.2 Lymph % (Auto) 38.8 [place] % (Auto) 8.7 Eos % (Auto) 0.5 Baso % (Auto) 0.5 Lymph # (Auto) 2.9 [place] # (Auto) 0.6 Eos # (Auto) 0.0 Baso # (Auto) 0.0 Abs Immat Gran (auto) 0.02 Absolute Neuts (auto) 3.8 Absolute Nucleated RBC 0.000 Nucleated RBC % (auto) 0.0 Sodium 140 Potassium 3.9 Chloride 106 Carbon Dioxide 25 Anion Gap 13 BUN 16 Creatinine 0.77 Estim Creat Clear Calc 135.1 Estimated GFR > 60 Random Glucose 108 Estimat Average Glucose Hemoglobin A1c % Calcium 9.3 Total Bilirubin 0.3 AST 13 ALT 19 Alkaline Phosphatase 61 Total Protein 7.1 Albumin 4.0 Triglycerides Cholesterol LDL Cholesterol, Calc HDL Cholesterol Beta HCG, Quant Ethyl Alcohol < 10 Influenza Type A (PCR) NEGATIVE Influenza Type B (PCR) NEGATIVE RSV RNA Qual (PCR) NEGATIVE SARS-CoV-2 RNA (RT-PCR) NEGATIVE 03/20/22 03/21/22 03/21/22 16:09 08:14 08:14 WBC RBC Hgb Hct MCV MCH MCHC RDW Plt Count MPV Immature Gran % (Auto) Neut % (Auto) Lymph % (Auto) [place] % (Auto) Eos % (Auto) Baso % (Auto) Lymph # (Auto) [place] # (Auto) Eos # (Auto) Baso # (Auto) Abs Immat Gran (auto) Absolute Neuts (auto) Absolute Nucleated RBC Nucleated RBC % (auto) Sodium Potassium Chloride Carbon Dioxide Anion Gap BUN Creatinine Estim Creat Clear Calc Estimated GFR Random Glucose Estimat Average Glucose 108 Hemoglobin A1c % 5.4 Calcium Total Bilirubin AST ALT Alkaline Phosphatase Total Protein Albumin Triglycerides 84 Cholesterol 133 LDL Cholesterol, Calc 79 HDL Cholesterol 38 Beta HCG, Quant < 2 Ethyl Alcohol Influenza Type A (PCR) Influenza Type B (PCR) RSV RNA Qual (PCR) SARS-CoV-2 RNA (RT-PCR) Meds/Allergies Meds Home Medications Medication Instructions Recorded Confirmed Type benztropine 1 mg tablet 1 mg PO DAILY 03/19/22 03/19/22 History diclofenac sodium 1 % topical gel 2 g topical QID 03/19/22 03/19/22 History divalproex 500 mg tablet,delayed 1,250 mg PO QPM 03/19/22 03/19/22 History release (Depakote) divalproex 500 mg tablet,extended 500 mg PO DAILY 03/19/22 03/19/22 History release 24 hr (Depakote ER) docusate sodium 100 mg capsule 100 mg PO BID 03/19/22 03/19/22 History escitalopram oxalate 20 mg tablet 20 mg PO DAILY 03/19/22 03/19/22 History fluticasone furoate 50 50 mcg inhalation DAILY 03/19/22 03/19/22 History mcg/actuation blister powder for inhalation levonorgestrel-ethinyl estradiol 1 tab PO DAILY 03/19/22 03/19/22 History 0.1 mg-20 mcg tablet metformin 500 mg tablet 500 mg PO BID 03/19/22 03/19/22 History olanzapine 20 mg tablet 25 mg PO BEDTIME 03/19/22 03/19/22 History trazodone 150 mg tablet 150 mg PO BEDTIME 03/19/22 03/19/22 History Allergies Allergies Allergy/AdvReac Type Severity Reaction Status Date / Time No Known Allergies Allergy Verified 03/19/22 11:48 Mental Status Exam Mental Status Exam Narrative: Pt is alert and oriented; behavior is cooperative and calm; patient is not in distress; disheveled, malodorous, hirsutism; mood is described as good and affect blunted; eye contact appropriate; Speech is latent; when talking speech is normal rate, volume and prosody and not pressured; no psychomotor agitation/retardation present; thought process with thought blocking; otherwise goal oriented; Thought content is on left leg discomfort; internally preoccupied but denies AVH; denies any SI/HI. Patients insight and judgment are impaired. Assessment & Plan Assessment & Plan (1) Schizoaffective disorder: Status: Acute Code(s): F25.9 - Schizoaffective disorder, unspecified (2) PTSD (post-traumatic stress disorder): Status: Suspected Code(s): F43.10 - Post-traumatic stress disorder, unspecified (3) Cocaine abuse: Status: Acute Code(s): F14.10 - Cocaine abuse, uncomplicated Plan pt is a 41 yo female with dx of schizoaffective disorder, PTSD and cocaine abuse who presents for disorganized behavior in face of going off her medications. -pt restarted on her medications and currently calm, though disorganized. Poor insight -will get collateral PLAN: CV q15min checks continue Depakote continue Zyprexa continue benztropine continue lexapro continue metformin obtain collateral Patient educated on: diagnosis, medication risk/benefits and substance abuse Informed Consent: understands, does not understand and further education needed Reason for continued inpatient stay Substantial Risk for: rapid decompensation Statement Statement: I have reviewed the history and physical and performed a pertinent examination on my patient. No changes have occurred unless specified. Time Spent With Patient Time: Total time managing care of this patient today ____ minutes.
[2022-03-21 18:45] VITALS: BP 138/66; PULSE 91; RESP 16; TEMP 36.2; O2SAT 98
[2022-03-21] MEDS: traZODone HCL 50 MG TABLET 150 MG PO (20:15)
[2022-03-21] MEDS: Divalproex Sodium 250 MG TABLET.DR 1250 MG PO (20:15)
[2022-03-21] MEDS: OLANZapine 5 MG TABLET 25 MG PO (20:15)
[2022-03-22] MEDS: Escitalopram Oxalate 20 MG TABLET PO (08:54)
[2022-03-22] MEDS: Divalproex Sodium ER 500 MG TAB.ER.24H PO (08:54)
[2022-03-22] MEDS: Benztropine Mesylate 1 MG TABLET PO (08:54)
[2022-03-22] MEDS: Docusate Sodium 100 MG CAPSULE PO ×2 (08:54→21:35)
[2022-03-22] MEDS: metFORMIN HCl 500 MG TABLET PO ×2 (08:54→21:35)
[2022-03-22 08:57] VITALS: BP 133/88; PULSE 73; RESP 18; TEMP 36.8; O2SAT 98
--- NOTE | 2022-03-22 12:43 | P.PNPSI_ITS ---
Subjective Subjective Date of Service: 03/22/22 Reason For Visit: paranoia/SI Interim History: pt lying on her bed most of the day. Mother called to inform that if allowed, pt will make every effort to remain in bed. Pt c/o left leg pain for the past 2 weeks. Director Of [employer] examined with nurse present. Pt has point tenderness on left lateral leg muscle congruent with muscle strain. Physical exam same as ED; will give ibuprofen for few days to which pt agrees ED Note 03/19/22: Extremities: No lower extremity edema. No calf ttp. Left knee with no obvious deformity, laxity upon examination, effusion, erythema, warmth. Left knee appears without acute abnormality, not consistent with septic arthritis. Will provide ibuprofen at this time. PERC negative, not consistent with DVT. Atraumatic, would defer XR imaging at this time. Mental Status Exam Mental Status Exam Narrative: Pt is alert and oriented; behavior is cooperative and calm; patient is not in distress; disheveled, malodorous, hirsutism; mood is described as good and affect blunted; eye contact appropriate; Speech is latent; when talking speech is normal rate, volume and prosody and not pressured; no psychomotor agitation/retardation present; thought process with thought blocking; otherwise goal oriented; Thought content is on left leg discomfort; internally preoccupied but denies AVH; denies any SI/HI. Patients insight and judgment are impaired. Diagnostics Vital Signs (24Hr): Vital Signs - 24 hr 03/21/22 18:45 03/22/22 08:57 Temperature 97.1 F 98.3 F Pulse Rate 91 73 Respiratory Rate 16 18 Blood Pressure 138/66 133/88 Pulse Oximetry 98 98 Oxygen Delivery Method Room Air Room Air BMI result Body Mass Index 51.5 Labs Results: 03/19/22 12:52 03/19/22 12:52 Labs: Laboratory Results - last 48 hr 03/20/22 03/21/22 03/21/22 16:09 08:14 08:14 Estimat Average Glucose 108 Hemoglobin A1c % 5.4 Triglycerides 84 Cholesterol 133 LDL Cholesterol, Calc 79 HDL Cholesterol 38 Beta HCG, Quant < 2 Medications Medications Current Medications Acetaminophen (Acetaminophen 325 Mg Tablet) 650 mg PO Q6H PRN PRN Reason: Headache/Pain Mild Scale (1-3) Last Admin: 03/21/22 21:13 Dose: 650 mg Al Hydroxide/Mg Hydroxide (Magnesium Hydrox/Alum Hydrox 30 Ml Oral.Susp) 30 ml PO Q6H PRN PRN Reason: Heartburn/Nausea Benztropine Mesylate (Benztropine Mesylate 1 Mg Tablet) 1 mg PO DAILY [facility] Last Admin: 03/22/22 08:54 Dose: 1 mg Diphenhydramine HCl (Diphenhydramine Hcl 25 Mg Capsule) 50 mg PO Q4H PRN PRN Reason: agitation Divalproex Sodium (Divalproex Sodium 250 Mg Tablet.Dr) 1,250 mg PO BEDTIME [facility] Last Admin: 03/21/22 20:15 Dose: 1,250 mg Divalproex Sodium (Divalproex Sodium Er 500 Mg Tab.Er.24h) 500 mg PO DAILY [facility] Last Admin: 03/22/22 08:54 Dose: 500 mg Docusate Sodium (Docusate Sodium 100 Mg Capsule) 100 mg PO BID [facility] Last Admin: 03/22/22 08:54 Dose: 100 mg Escitalopram Oxalate (Escitalopram Oxalate 20 Mg Tablet) 20 mg PO DAILY [facility] Last Admin: 03/22/22 08:54 Dose: 20 mg Fluticasone Propionate (Fluticasone Propionate Nasal 16 Gm [place]) 1 spray NOSTRIL-B DAILY [facility] Last Admin: 03/22/22 08:59 Dose: Not Given Haloperidol (Haloperidol 5 Mg Tablet) 5 mg PO Q4H PRN PRN Reason: agitation Hydroxyzine HCl (Hydroxyzine Hcl 25 Mg Tablet) 25 mg PO Q6H PRN PRN Reason: Anxiety Lorazepam (Lorazepam 1 Mg Tablet) 1 mg PO BID PRN PRN Reason: anxiety or mild agitation Lorazepam (Lorazepam 1 Mg Tablet) 2 mg PO Q4H PRN PRN Reason: agitation Magnesium Hydroxide (Milk Of Magnesia 30 Ml Oral.Susp) 30 ml PO DAILY PRN PRN Reason: Constipation Metformin HCl (Metformin Hcl 500 Mg Tablet) 500 mg PO BID [facility] Last Admin: 03/22/22 08:54 Dose: 500 mg Nicotine Polacrilex (Nicotine Polacrilex 2 Mg Gum) 4 mg BUCCAL Q2H PRN PRN Reason: Nicotine Cravings Olanzapine (Olanzapine 5 Mg Tablet) 25 mg PO BEDTIME [facility] Last Admin: 03/21/22 20:15 Dose: 25 mg Trazodone HCl (Trazodone Hcl 50 Mg Tablet) 150 mg PO BEDTIME [facility] Last Admin: 03/21/22 20:15 Dose: 150 mg Allergies Allergies Allergy/AdvReac Type Severity Reaction Status Date / Time No Known Allergies Allergy Verified 03/19/22 11:48 Assessment & Plan Assessment & Plan (1) Schizoaffective disorder: Status: Acute Code(s): F25.9 - Schizoaffective disorder, unspecified (2) PTSD (post-traumatic stress disorder): Status: Suspected Code(s): F43.10 - Post-traumatic stress disorder, unspecified (3) Cocaine abuse: Status: Acute Code(s): F14.10 - Cocaine abuse, uncomplicated Plan pt is a 41 yo female with dx of schizoaffective disorder, PTSD and cocaine abuse who presents for disorganized behavior in face of going off her medications. -pt restarted on her medications and currently calm, though disorganized. Poor insight -will get collateral 03/22 left leg examined; muscle tenderness due to muscle strain PLAN: CV q15min checks Naproxen 500mg for 3 days continue Depakote continue Zyprexa continue benztropine continue lexapro continue metformin obtain collateral I spent minutes with the patient and/or on the patient floor today, greater than?50% of which was spent counseling/coordinating care. Patient educated on: medical condition Informed Consent: understands Reason for contiued inpatient stay Substantial Risk for: rapid decompensation Time Spent With Patient Time: Total time managing care of this patient today ____ minutes.
[2022-03-22 19:05] VITALS: BP 135/93; PULSE 97; RESP 16; TEMP 37.7; O2SAT 98
[2022-03-22 21:33] VITALS: BP 131/77
[2022-03-22] MEDS: Divalproex Sodium 250 MG TABLET.DR 1250 MG PO (21:35)
[2022-03-22] MEDS: NaPROXEN 500 MG TABLET PO (21:35)
[2022-03-22] MEDS: traZODone HCL 50 MG TABLET 150 MG PO (21:35)
[2022-03-22] MEDS: OLANZapine 5 MG TABLET 25 MG PO (21:36)
[2022-03-23 06:00] VITALS: BP 116/76; PULSE 74; RESP 16; TEMP 36.8; O2SAT 96
[2022-03-23] MEDS: NaPROXEN 500 MG TABLET PO ×2 (09:26→21:14)
[2022-03-23] MEDS: Docusate Sodium 100 MG CAPSULE PO ×2 (09:26→21:14)
[2022-03-23] MEDS: metFORMIN HCl 500 MG TABLET PO ×2 (09:26→21:14)
[2022-03-23] MEDS: Benztropine Mesylate 1 MG TABLET PO (09:26)
[2022-03-23] MEDS: Escitalopram Oxalate 20 MG TABLET PO (09:26)
[2022-03-23] MEDS: Fluticasone Propionate Nasal 16 GM SPRAY 1 SPRAY NOSTRIL-B (09:27)
[2022-03-23] MEDS: Divalproex Sodium ER 500 MG TAB.ER.24H PO (09:27)
--- NOTE | 2022-03-23 12:07 | HO.PSYCHPN ---
Subjective Subjective Date of Service: 03/23/22 Reason For Visit: paranoia/SI Interim History: still disorganized, but pt sitting up today, eating, little more engaged as talks to tag writer; also walking on own and in milue. Pt says her leg is feeling a little better; she denies AVH. says sleeping ok. Denies psych symptoms Mental Status Exam Mental Status Exam Narrative: Pt is alert and oriented; behavior is cooperative and calm; patient is not in distress; disheveled, malodorous, hirsutism; mood is described as good and affect blunted; eye contact appropriate; Speech is latent; when talking speech is normal rate, volume and prosody and not pressured; no psychomotor agitation/retardation present; thought process with thought blocking; otherwise goal oriented; Thought content is on left leg discomfort; internally preoccupied but denies AVH; denies any SI/HI. Patients insight and judgment are impaired. Diagnostics Vital Signs (24Hr): Vital Signs - 24 hr 03/22/22 19:05 03/22/22 21:33 03/23/22 06:00 Temperature 99.8 F 98.3 F Pulse Rate 97 74 Respiratory Rate 16 16 Blood Pressure 135/93 H 131/77 116/76 Pulse Oximetry 98 96 Oxygen Delivery Method Room Air Room Air BMI result Body Mass Index 51.5 Labs Results: 03/19/22 12:52 03/19/22 12:52 Medications Medications Current Medications Acetaminophen (Acetaminophen 325 Mg Tablet) 650 mg PO Q6H PRN PRN Reason: Headache/Pain Mild Scale (1-3) Last Admin: 03/21/22 21:13 Dose: 650 mg Al Hydroxide/Mg Hydroxide (Magnesium Hydrox/Alum Hydrox 30 Ml Oral.Susp) 30 ml PO Q6H PRN PRN Reason: Heartburn/Nausea Benztropine Mesylate (Benztropine Mesylate 1 Mg Tablet) 1 mg PO DAILY [facility] Last Admin: 03/23/22 09:26 Dose: 1 mg Diphenhydramine HCl (Diphenhydramine Hcl 25 Mg Capsule) 50 mg PO Q4H PRN PRN Reason: agitation Divalproex Sodium (Divalproex Sodium 250 Mg Tablet.Dr) 1,250 mg PO BEDTIME [facility] Last Admin: 03/22/22 21:35 Dose: 1,250 mg Divalproex Sodium (Divalproex Sodium Er 500 Mg Tab.Er.24h) 500 mg PO DAILY [facility] Last Admin: 03/23/22 09:27 Dose: 500 mg Docusate Sodium (Docusate Sodium 100 Mg Capsule) 100 mg PO BID [facility] Last Admin: 03/23/22 09:26 Dose: 100 mg Escitalopram Oxalate (Escitalopram Oxalate 20 Mg Tablet) 20 mg PO DAILY [facility] Last Admin: 03/23/22 09:26 Dose: 20 mg Fluticasone Propionate (Fluticasone Propionate Nasal 16 Gm [place]) 1 spray NOSTRIL-B DAILY [facility] Last Admin: 03/23/22 09:27 Dose: 1 spray Haloperidol (Haloperidol 5 Mg Tablet) 5 mg PO Q4H PRN PRN Reason: agitation Hydroxyzine HCl (Hydroxyzine Hcl 25 Mg Tablet) 25 mg PO Q6H PRN PRN Reason: Anxiety Lorazepam (Lorazepam 1 Mg Tablet) 1 mg PO BID PRN PRN Reason: anxiety or mild agitation Lorazepam (Lorazepam 1 Mg Tablet) 2 mg PO Q4H PRN PRN Reason: agitation Magnesium Hydroxide (Milk Of Magnesia 30 Ml Oral.Susp) 30 ml PO DAILY PRN PRN Reason: Constipation Metformin HCl (Metformin Hcl 500 Mg Tablet) 500 mg PO BID [facility] Last Admin: 03/23/22 09:26 Dose: 500 mg Naproxen (Naproxen 500 Mg Tablet) 500 mg PO BID [facility] Stop: 03/25/22 23:00 Last Admin: 03/23/22 09:26 Dose: 500 mg Nicotine Polacrilex (Nicotine Polacrilex 2 Mg Gum) 4 mg BUCCAL Q2H PRN PRN Reason: Nicotine Cravings Olanzapine (Olanzapine 5 Mg Tablet) 25 mg PO BEDTIME [facility] Last Admin: 03/22/22 21:36 Dose: 25 mg Trazodone HCl (Trazodone Hcl 50 Mg Tablet) 150 mg PO BEDTIME [facility] Last Admin: 03/22/22 21:35 Dose: 150 mg Allergies Allergies Allergy/AdvReac Type Severity Reaction Status Date / Time No Known Allergies Allergy Verified 03/19/22 11:48 Assessment & Plan Assessment & Plan (1) Schizoaffective disorder: Status: Acute Code(s): F25.9 - Schizoaffective disorder, unspecified (2) PTSD (post-traumatic stress disorder): Status: Suspected Code(s): F43.10 - Post-traumatic stress disorder, unspecified (3) Cocaine abuse: Status: Acute Code(s): F14.10 - Cocaine abuse, uncomplicated Plan pt is a 41 yo female with dx of schizoaffective disorder, PTSD and cocaine abuse who presents for disorganized behavior in face of going off her medications. -pt restarted on her medications and currently calm, though disorganized. Poor insight -will get collateral 03/22 left leg examined; muscle tenderness due to muscle strain 03/23 says leg feels a little better; still disorganized but little more engaged, out in milue more PLAN: CV q15min checks Ordered labs Naproxen 500mg for 3 days continue Depakote continue Zyprexa continue benztropine continue lexapro continue metformin obtain collateral I spent minutes with the patient and/or on the patient floor today, greater than?50% of which was spent counseling/coordinating care. Patient educated on: diagnosis Informed Consent: does not understand Reason for contiued inpatient stay Substantial Risk for: inability to function Time Spent With Patient Time: Total time managing care of this patient today ____ minutes.
[2022-03-23 16:05] VITALS: BP 137/77; PULSE 78; RESP 16; TEMP 37.2; O2SAT 94
[2022-03-23] MEDS: OLANZapine 5 MG TABLET 25 MG PO (21:13)
[2022-03-23] MEDS: Divalproex Sodium 250 MG TABLET.DR 1250 MG PO (21:13)
[2022-03-23] MEDS: traZODone HCL 50 MG TABLET 150 MG PO (21:14)
[2022-03-23] MEDS: LORazepam 1 MG TABLET PO (21:20)
[2022-03-24 08:46] LABS: Alanine Aminotransferase 14 U/L (0-31); Albumin Level 3.7 g/dL (3.5-5.0); Alkaline Phosphatase 66 U/L (39-117); Aspartate Amino Transferase 12 U/L (5-31); Bilirubin Direct < 0.2 mg/dL (0.0-0.5); Total Protein 6.6 g/dL (6.5-8.0)
[2022-03-24 09:02] VITALS: BP 126/65; PULSE 941; RESP 16; TEMP 37; O2SAT 97
[2022-03-24] MEDS: Benztropine Mesylate 1 MG TABLET PO (09:06)
[2022-03-24] MEDS: Escitalopram Oxalate 20 MG TABLET PO (09:06)
[2022-03-24] MEDS: NaPROXEN 500 MG TABLET PO ×2 (09:06→20:09)
[2022-03-24] MEDS: Docusate Sodium 100 MG CAPSULE PO ×2 (09:06→20:10)
[2022-03-24] MEDS: Divalproex Sodium ER 500 MG TAB.ER.24H PO (09:06)
[2022-03-24] MEDS: Fluticasone Propionate Nasal 16 GM SPRAY 1 SPRAY NOSTRIL-B (09:07)
[2022-03-24] MEDS: metFORMIN HCl 500 MG TABLET PO ×2 (09:07→20:08)
--- NOTE | 2022-03-24 10:02 | HO.PSYCHPN ---
Subjective Subjective Date of Service: 03/24/22 Reason For Visit: paranoia/SI Interim History: pt says she's feeling a little better. Also that her leg is feeling better. She denies any psychiatric symptoms. Of note patient is with a brighter affect and less speech latency. Patient also in the milieu and day room, participating in groups. She remains disorganized, malodorous and not attending to ADLs. Reviewed labs and Depakote level therapeutic and enzymes within normal limits. Mental Status Exam Mental Status Exam Narrative: Pt is alert and oriented; behavior is cooperative and calm; patient is not in distress; disheveled, malodorous, hirsutism; mood is described as good and affect more naturally expressive; eye contact appropriate; Speech is less latent and normal rate, volume and prosody and not pressured; no psychomotor agitation/retardation present; thought process with some thought blocking but less; otherwise goal oriented; Thought content is vacuous; remains internally preoccupied but denies AVH; denies any SI/HI. Patients insight and judgment are impaired. Diagnostics Vital Signs (24Hr): Vital Signs - 24 hr 03/23/22 16:05 03/24/22 09:02 Temperature 98.9 F 98.6 F Pulse Rate 78 941 H Respiratory Rate 16 16 Blood Pressure 137/77 126/65 Pulse Oximetry 94 97 Oxygen Delivery Method Room Air Room Air BMI result Body Mass Index 51.5 Labs Results: 03/19/22 12:52 03/19/22 12:52 Labs: Laboratory Results - last 48 hr 03/24/22 03/24/22 08:00 08:00 Direct Bilirubin < 0.2 AST 12 ALT 14 Alkaline Phosphatase 66 Total Protein 6.6 Albumin 3.7 Valproic Acid 65.0 Medications Medications Current Medications Acetaminophen (Acetaminophen 325 Mg Tablet) 650 mg PO Q6H PRN PRN Reason: Headache/Pain Mild Scale (1-3) Last Admin: 03/21/22 21:13 Dose: 650 mg Al Hydroxide/Mg Hydroxide (Magnesium Hydrox/Alum Hydrox 30 Ml Oral.Susp) 30 ml PO Q6H PRN PRN Reason: Heartburn/Nausea Benztropine Mesylate (Benztropine Mesylate 1 Mg Tablet) 1 mg PO DAILY [facility] Last Admin: 03/24/22 09:06 Dose: 1 mg Diphenhydramine HCl (Diphenhydramine Hcl 25 Mg Capsule) 50 mg PO Q4H PRN PRN Reason: agitation Divalproex Sodium (Divalproex Sodium 250 Mg Tablet.Dr) 1,250 mg PO BEDTIME [facility] Last Admin: 03/23/22 21:13 Dose: 1,250 mg Divalproex Sodium (Divalproex Sodium Er 500 Mg Tab.Er.24h) 500 mg PO DAILY [facility] Last Admin: 03/24/22 09:06 Dose: 500 mg Docusate Sodium (Docusate Sodium 100 Mg Capsule) 100 mg PO BID [facility] Last Admin: 03/24/22 09:06 Dose: 100 mg Escitalopram Oxalate (Escitalopram Oxalate 20 Mg Tablet) 20 mg PO DAILY [facility] Last Admin: 03/24/22 09:06 Dose: 20 mg Fluticasone Propionate (Fluticasone Propionate Nasal 16 Gm [place]) 1 spray NOSTRIL-B DAILY [facility] Last Admin: 03/24/22 09:07 Dose: 1 spray Haloperidol (Haloperidol 5 Mg Tablet) 5 mg PO Q4H PRN PRN Reason: agitation Hydroxyzine HCl (Hydroxyzine Hcl 25 Mg Tablet) 25 mg PO Q6H PRN PRN Reason: Anxiety Lorazepam (Lorazepam 1 Mg Tablet) 1 mg PO BID PRN PRN Reason: anxiety or mild agitation Last Admin: 03/23/22 21:20 Dose: 1 mg Lorazepam (Lorazepam 1 Mg Tablet) 2 mg PO Q4H PRN PRN Reason: agitation Magnesium Hydroxide (Milk Of Magnesia 30 Ml Oral.Susp) 30 ml PO DAILY PRN PRN Reason: Constipation Metformin HCl (Metformin Hcl 500 Mg Tablet) 500 mg PO BID [facility] Last Admin: 03/24/22 09:07 Dose: 500 mg Naproxen (Naproxen 500 Mg Tablet) 500 mg PO BID [facility] Stop: 03/25/22 23:00 Last Admin: 03/24/22 09:06 Dose: 500 mg Nicotine Polacrilex (Nicotine Polacrilex 2 Mg Gum) 4 mg BUCCAL Q2H PRN PRN Reason: Nicotine Cravings Olanzapine (Olanzapine 5 Mg Tablet) 25 mg PO BEDTIME [facility] Last Admin: 03/23/22 21:13 Dose: 25 mg Trazodone HCl (Trazodone Hcl 50 Mg Tablet) 150 mg PO BEDTIME [facility] Last Admin: 03/23/22 21:14 Dose: 150 mg Allergies Allergies Allergy/AdvReac Type Severity Reaction Status Date / Time No Known Allergies Allergy Verified 03/19/22 11:48 Assessment & Plan Assessment & Plan (1) Schizoaffective disorder: Status: Acute Code(s): F25.9 - Schizoaffective disorder, unspecified (2) PTSD (post-traumatic stress disorder): Status: Suspected Code(s): F43.10 - Post-traumatic stress disorder, unspecified (3) Cocaine abuse: Status: Acute Code(s): F14.10 - Cocaine abuse, uncomplicated Plan pt is a 41 yo female with dx of schizoaffective disorder, PTSD and cocaine abuse who presents for disorganized behavior in face of going off her medications. -pt restarted on her medications and currently calm, though disorganized. Poor insight -will get collateral 03/22 left leg examined; muscle tenderness due to muscle strain 03/23 says leg feels a little better; still disorganized but little more engaged, out in milue more 03/24 patient with brighter affect and less speech latency. Remains not attending to ADLs (though said she did); continue current treatment regimen. Patient has been off her medications for few weeks and it will likely take longer for them to again become therapeutic. Discussed case with marriage and family social worker who called [facility] and waiting to hear back to find baseline; Discussed case with nursing staff who will encourage patient to bathe, brush teeth PLAN: CV q15min checks -Depakote level: 65 -Liver/ammonia: WNL Naproxen 500mg for 3 days for muscle strain continue Depakote continue Zyprexa continue benztropine continue lexapro continue metformin obtain collateral I spent minutes with the patient and/or on the patient floor today, greater than?50% of which was spent counseling/coordinating care. Patient educated on: diagnosis Informed Consent: does not understand Reason for contiued inpatient stay Substantial Risk for: inability to function Time Spent With Patient Time: Total time managing care of this patient today ____ minutes.
[2022-03-24 11:30] LABS: Bilirubin Total 0.2 mg/dL (0.0-1.0)
[2022-03-24 12:05] LABS: Ammonia 36 umol/L (13-55)
[2022-03-24 19:45] VITALS: BP 152/91; PULSE 93; TEMP 36.5
[2022-03-24] MEDS: OLANZapine 5 MG TABLET 25 MG PO (20:07)
[2022-03-24] MEDS: Divalproex Sodium 250 MG TABLET.DR 1250 MG PO (20:08)
[2022-03-24] MEDS: traZODone HCL 50 MG TABLET 150 MG PO (20:09)
[2022-03-25 08:00] VITALS: BP 115/79; PULSE 86; RESP 16; TEMP 36.7; O2SAT 98
[2022-03-25] MEDS: Acetaminophen 325 MG TABLET 650 MG PO (08:43)
[2022-03-25] MEDS: Fluticasone Propionate Nasal 16 GM SPRAY 1 SPRAY NOSTRIL-B (08:43)
[2022-03-25] MEDS: Benztropine Mesylate 1 MG TABLET PO (08:43)
[2022-03-25] MEDS: Docusate Sodium 100 MG CAPSULE PO ×2 (08:43→21:07)
[2022-03-25] MEDS: Divalproex Sodium ER 500 MG TAB.ER.24H PO (08:43)
[2022-03-25] MEDS: NaPROXEN 500 MG TABLET PO ×2 (08:43→21:07)
[2022-03-25] MEDS: metFORMIN HCl 500 MG TABLET PO ×2 (08:44→21:07)
[2022-03-25] MEDS: Escitalopram Oxalate 20 MG TABLET PO (08:44)
--- NOTE | 2022-03-25 10:18 | HO.PSYCHPN ---
Subjective Subjective Date of Service: 03/25/22 Reason For Visit: paranoia/SI Interim History: Patient remains a little more engaged and reports that she is feeling better and that her leg is better. She remains however disorganized and has yet to shower, brush her teeth and is disheveled and malodorous. Patient keeps saying that she will bathe, but then will not do so. Physician General Internal Medicine discussed this with patient in she has no answer for why other than to say she will. Mental Status Exam Mental Status Exam Narrative: Pt is alert and oriented; behavior is cooperative and calm but still disorganized; patient is not in distress; disheveled, malodorous, hirsutism; mood is described as good and affect more naturally expressive; eye contact appropriate; Speech is still latent, but less; normal rate, volume and prosody and not pressured; no psychomotor agitation/retardation present; thought process with thought blocking but less; otherwise goal oriented; Thought content is vacuous; remains internally preoccupied but denies AVH; denies any SI/HI. Patients insight and judgment are impaired. Diagnostics Vital Signs (24Hr): Vital Signs - 24 hr 03/24/22 19:45 03/25/22 08:00 Temperature 97.7 F 98.1 F Pulse Rate 93 86 Respiratory Rate 16 Blood Pressure 152/91 H 115/79 Pulse Oximetry 98 Oxygen Delivery Method Room Air BMI result Body Mass Index 51.5 Labs Results: 03/19/22 12:52 03/19/22 12:52 Labs: Laboratory Results - last 48 hr 03/24/22 03/24/22 03/24/22 08:00 08:00 08:00 Total Bilirubin 0.2 Direct Bilirubin < 0.2 AST 12 ALT 14 Alkaline Phosphatase 66 Ammonia 36 Total Protein 6.6 Albumin 3.7 Valproic Acid 65.0 Medications Medications Current Medications Acetaminophen (Acetaminophen 325 Mg Tablet) 650 mg PO Q6H PRN PRN Reason: Headache/Pain Mild Scale (1-3) Last Admin: 03/25/22 08:43 Dose: 650 mg Al Hydroxide/Mg Hydroxide (Magnesium Hydrox/Alum Hydrox 30 Ml Oral.Susp) 30 ml PO Q6H PRN PRN Reason: Heartburn/Nausea Benztropine Mesylate (Benztropine Mesylate 1 Mg Tablet) 1 mg PO DAILY [facility] Last Admin: 03/25/22 08:43 Dose: 1 mg Diphenhydramine HCl (Diphenhydramine Hcl 25 Mg Capsule) 50 mg PO Q4H PRN PRN Reason: agitation Divalproex Sodium (Divalproex Sodium 250 Mg Tablet.Dr) 1,250 mg PO BEDTIME [facility] Last Admin: 03/24/22 20:08 Dose: 1,250 mg Divalproex Sodium (Divalproex Sodium Er 500 Mg Tab.Er.24h) 500 mg PO DAILY [facility] Last Admin: 03/25/22 08:43 Dose: 500 mg Docusate Sodium (Docusate Sodium 100 Mg Capsule) 100 mg PO BID [facility] Last Admin: 03/25/22 08:43 Dose: 100 mg Escitalopram Oxalate (Escitalopram Oxalate 20 Mg Tablet) 20 mg PO DAILY [facility] Last Admin: 03/25/22 08:44 Dose: 20 mg Fluticasone Propionate (Fluticasone Propionate Nasal 16 Gm [place]) 1 spray NOSTRIL-B DAILY [facility] Last Admin: 03/25/22 08:43 Dose: 1 spray Haloperidol (Haloperidol 5 Mg Tablet) 5 mg PO Q4H PRN PRN Reason: agitation Hydroxyzine HCl (Hydroxyzine Hcl 25 Mg Tablet) 25 mg PO Q6H PRN PRN Reason: Anxiety Lorazepam (Lorazepam 1 Mg Tablet) 1 mg PO BID PRN PRN Reason: anxiety or mild agitation Last Admin: 03/23/22 21:20 Dose: 1 mg Lorazepam (Lorazepam 1 Mg Tablet) 2 mg PO Q4H PRN PRN Reason: agitation Magnesium Hydroxide (Milk Of Magnesia 30 Ml Oral.Susp) 30 ml PO DAILY PRN PRN Reason: Constipation Metformin HCl (Metformin Hcl 500 Mg Tablet) 500 mg PO BID [facility] Last Admin: 03/25/22 08:44 Dose: 500 mg Naproxen (Naproxen 500 Mg Tablet) 500 mg PO BID [facility] Stop: 03/25/22 23:00 Last Admin: 03/25/22 08:43 Dose: 500 mg Nicotine Polacrilex (Nicotine Polacrilex 2 Mg Gum) 4 mg BUCCAL Q2H PRN PRN Reason: Nicotine Cravings Olanzapine (Olanzapine 5 Mg Tablet) 25 mg PO BEDTIME [facility] Last Admin: 03/24/22 20:07 Dose: 25 mg Trazodone HCl (Trazodone Hcl 50 Mg Tablet) 150 mg PO BEDTIME [facility] Last Admin: 03/24/22 20:09 Dose: 150 mg Allergies Allergies Allergy/AdvReac Type Severity Reaction Status Date / Time No Known Allergies Allergy Verified 03/19/22 11:48 Assessment & Plan Assessment & Plan (1) Schizoaffective disorder: Status: Acute Code(s): F25.9 - Schizoaffective disorder, unspecified (2) PTSD (post-traumatic stress disorder): Status: Suspected Code(s): F43.10 - Post-traumatic stress disorder, unspecified (3) Cocaine abuse: Status: Acute Code(s): F14.10 - Cocaine abuse, uncomplicated Plan pt is a 41 yo female with dx of schizoaffective disorder, PTSD and cocaine abuse who presents for disorganized behavior in face of going off her medications. -pt restarted on her medications and currently calm, though disorganized. Poor insight -will get collateral 03/22 left leg examined; muscle tenderness due to muscle strain 03/23 says leg feels a little better; still disorganized but little more engaged, out in milue more 03/24 patient with brighter affect and less speech latency. Remains not attending to ADLs (though said she did); continue current treatment regimen. Patient has been off her medications for few weeks and it will likely take longer for them to again become therapeutic. Discussed case with pediatric social worker who called longterm and waiting to hear back to find baseline; Discussed case with nursing staff who will encourage patient to bathe, brush teeth 03/25 remains a little brighter than on admission, less speech latency. Still disorganized as she refuses to bathe, pressure teeth and she remains malodorous. Patient keeps saying she will bathe but then refuses to do so, despite prompting and encouragement by staff. Patient's Depakote level is within normal limits; while there is room to increase the dose, patient has apparently been on this current medication regimen for years; as she has been off medications for some time, sign writer letterer or painter does not want to prematurely increase her dose or add another medication, complicating things with polypharmacy and increasing risk of side effects; rather will continue to allow current medication regimen more time to become therapeutic. At patient's longterm she attends to her ADLs and sign writer letterer or painter agrees the patient should be much closer to baseline before discharging. PLAN: CV q15min checks -Depakote level: 65 -Liver/ammonia: WNL Naproxen 500mg for 3 days for muscle strain continue Depakote continue Zyprexa continue benztropine continue lexapro continue metformin obtain collateral I spent minutes with the patient and/or on the patient floor today, greater than?50% of which was spent counseling/coordinating care. Patient educated on: diagnosis Informed Consent: further education needed Reason for contiued inpatient stay Substantial Risk for: inability to function Time Spent With Patient Time: Total time managing care of this patient today ____ minutes.
[2022-03-25] MEDS: hydrOXYzine HCL 25 MG TABLET PO (13:17)
[2022-03-25 20:59] VITALS: BP 126/75; PULSE 86; RESP 16; TEMP 36.4; O2SAT 98
[2022-03-25] MEDS: OLANZapine 5 MG TABLET 25 MG PO (21:07)
[2022-03-25] MEDS: traZODone HCL 50 MG TABLET 150 MG PO (21:07)
[2022-03-25] MEDS: Divalproex Sodium 250 MG TABLET.DR 1250 MG PO (21:07)
--- NOTE | 2022-03-26 | ECG_ITS ---
Test Reason : monitor qtc Blood Pressure : / mmHG Vent. Rate : 090 BPM Atrial Rate : 090 BPM P-R Int : 162 ms QRS Dur : 080 ms QT Int : 332 ms P-R-T Axes : 048 046 072 degrees QTc Int : 406 ms Normal sinus rhythm Nonspecific T wave abnormality Abnormal ECG When compared with ECG of 19-MAR-2022 16:05, Nonspecific T wave abnormality, worse in Anterolateral leads Referred By: Denis Rollins Electronically Signed By:Dominick Del Valle
[2022-03-26 08:30] VITALS: BP 144/103; PULSE 80; TEMP 36.6
[2022-03-26] MEDS: Docusate Sodium 100 MG CAPSULE PO ×2 (09:07→21:30)
[2022-03-26] MEDS: Fluticasone Propionate Nasal 16 GM SPRAY 1 SPRAY NOSTRIL-B (09:07)
[2022-03-26] MEDS: Benztropine Mesylate 1 MG TABLET PO (09:07)
[2022-03-26] MEDS: Escitalopram Oxalate 20 MG TABLET PO (09:07)
[2022-03-26] MEDS: metFORMIN HCl 500 MG TABLET PO ×2 (09:07→21:31)
[2022-03-26] MEDS: Divalproex Sodium ER 500 MG TAB.ER.24H PO (09:07)
--- NOTE | 2022-03-26 10:17 | HO.PSYCHPN ---
Subjective Subjective Date of Service: 03/26/22 Reason For Visit: paranoia/SI Interim History: reports feeling better; showered first time in weeks. Pt asked about discharge and journalists and other writers agrees that if she continues to attend to ADL's discharge next week. Pt walking on own w/out trouble Mental Status Exam Mental Status Exam Narrative: Pt is alert and oriented; behavior is cooperative and calm but still disorganized; patient is not in distress; unkempt but improved hygiene; mood is described as good and affect more naturally expressive; eye contact appropriate; Speech not latent; normal rate, volume and prosody and not pressured; no psychomotor agitation/retardation present; thought process goal directed; otherwise goal oriented; Thought content is vacuous but starting to ask about discharge; remains internally preoccupied but denies AVH; denies any SI/HI. Patients insight and judgment are impaired but improved Diagnostics Vital Signs (24Hr): Vital Signs - 24 hr 03/25/22 20:59 Temperature 97.5 F Pulse Rate 86 Respiratory Rate 16 Blood Pressure 126/75 Pulse Oximetry 98 Oxygen Delivery Method Room Air BMI result Body Mass Index 51.5 Labs Results: 03/19/22 12:52 03/27/22 08:19 Labs: Laboratory Results - last 48 hr 03/24/22 03/24/22 08:00 08:00 Total Bilirubin 0.2 Ammonia 36 Medications Medications Current Medications Acetaminophen (Acetaminophen 325 Mg Tablet) 650 mg PO Q6H PRN PRN Reason: Headache/Pain Mild Scale (1-3) Last Admin: 03/25/22 08:43 Dose: 650 mg Al Hydroxide/Mg Hydroxide (Magnesium Hydrox/Alum Hydrox 30 Ml Oral.Susp) 30 ml PO Q6H PRN PRN Reason: Heartburn/Nausea Benztropine Mesylate (Benztropine Mesylate 1 Mg Tablet) 1 mg PO DAILY [facility] Last Admin: 03/26/22 09:07 Dose: 1 mg Diphenhydramine HCl (Diphenhydramine Hcl 25 Mg Capsule) 50 mg PO Q4H PRN PRN Reason: agitation Divalproex Sodium (Divalproex Sodium 250 Mg Tablet.Dr) 1,250 mg PO BEDTIME [facility] Last Admin: 03/25/22 21:07 Dose: 1,250 mg Divalproex Sodium (Divalproex Sodium Er 500 Mg Tab.Er.24h) 500 mg PO DAILY [facility] Last Admin: 03/26/22 09:07 Dose: 500 mg Docusate Sodium (Docusate Sodium 100 Mg Capsule) 100 mg PO BID [facility] Last Admin: 03/26/22 09:07 Dose: 100 mg Escitalopram Oxalate (Escitalopram Oxalate 20 Mg Tablet) 20 mg PO DAILY [facility] Last Admin: 03/26/22 09:07 Dose: 20 mg Fluticasone Propionate (Fluticasone Propionate Nasal 16 Gm [place]) 1 spray NOSTRIL-B DAILY [facility] Last Admin: 03/26/22 09:07 Dose: 1 spray Haloperidol (Haloperidol 5 Mg Tablet) 5 mg PO Q4H PRN PRN Reason: agitation Hydroxyzine HCl (Hydroxyzine Hcl 25 Mg Tablet) 25 mg PO Q6H PRN PRN Reason: Anxiety Last Admin: 03/25/22 13:17 Dose: 25 mg Magnesium Hydroxide (Milk Of Magnesia 30 Ml Oral.Susp) 30 ml PO DAILY PRN PRN Reason: Constipation Metformin HCl (Metformin Hcl 500 Mg Tablet) 500 mg PO BID [facility] Last Admin: 03/26/22 09:07 Dose: 500 mg Nicotine Polacrilex (Nicotine Polacrilex 2 Mg Gum) 4 mg BUCCAL Q2H PRN PRN Reason: Nicotine Cravings Olanzapine (Olanzapine 5 Mg Tablet) 25 mg PO BEDTIME [facility] Last Admin: 03/25/22 21:07 Dose: 25 mg Trazodone HCl (Trazodone Hcl 50 Mg Tablet) 150 mg PO BEDTIME [facility] Last Admin: 03/25/22 21:07 Dose: 150 mg Allergies Allergies Allergy/AdvReac Type Severity Reaction Status Date / Time No Known Allergies Allergy Verified 03/19/22 11:48 Assessment & Plan Assessment & Plan (1) Schizoaffective disorder: Status: Acute Code(s): F25.9 - Schizoaffective disorder, unspecified (2) PTSD (post-traumatic stress disorder): Status: Suspected Code(s): F43.10 - Post-traumatic stress disorder, unspecified (3) Cocaine abuse: Status: Acute Code(s): F14.10 - Cocaine abuse, uncomplicated Plan pt is a 41 yo female with dx of schizoaffective disorder, PTSD and cocaine abuse who presents for disorganized behavior in face of going off her medications. -pt restarted on her medications and currently calm, though disorganized. Poor insight -will get collateral 03/22 left leg examined; muscle tenderness due to muscle strain 03/23 says leg feels a little better; still disorganized but little more engaged, out in milue more 03/24 patient with brighter affect and less speech latency. Remains not attending to ADLs (though said she did); continue current treatment regimen. Patient has been off her medications for few weeks and it will likely take longer for them to again become therapeutic. Discussed case with social work program coordinator who called halfway and waiting to hear back to find baseline; Discussed case with nursing staff who will encourage patient to bathe, brush teeth 03/25 remains a little brighter than on admission, less speech latency. Still disorganized as she refuses to bathe, pressure teeth and she remains malodorous. Patient keeps saying she will bathe but then refuses to do so, despite prompting and encouragement by staff. Patient's Depakote level is within normal limits; while there is room to increase the dose, patient has apparently been on this current medication regimen for years; as she has been off medications for some time, journalists and other writers does not want to prematurely increase her dose or add another medication, complicating things with polypharmacy and increasing risk of side effects; rather will continue to allow current medication regimen more time to become therapeutic. At patient's halfway she attends to her ADLs and journalists and other writers agrees the patient should be much closer to baseline before discharging. 03/26 improved; showered Qtc wnl PLAN: CV q15min checks -Depakote level: 65 -Liver/ammonia: WNL Naproxen 500mg for 3 days for muscle strain continue Depakote continue Zyprexa continue benztropine continue lexapro continue metformin obtain collateral I spent minutes with the patient and/or on the patient floor today, greater than?50% of which was spent counseling/coordinating care. Patient educated on: diagnosis Informed Consent: understands Reason for contiued inpatient stay Substantial Risk for: rapid decompensation Time Spent With Patient Time: Total time managing care of this patient today ____ minutes.
[2022-03-26 18:00] VITALS: BP 129/80; PULSE 106; RESP 18; TEMP 36.9; O2SAT 100
[2022-03-26] MEDS: Divalproex Sodium 250 MG TABLET.DR 1250 MG PO (21:30)
[2022-03-26] MEDS: OLANZapine 5 MG TABLET 25 MG PO (21:31)
[2022-03-26] MEDS: traZODone HCL 50 MG TABLET 150 MG PO (21:31)
[2022-03-27 08:47] VITALS: BP 142/63; PULSE 86; TEMP 36.6
[2022-03-27] MEDS: Divalproex Sodium ER 500 MG TAB.ER.24H PO (09:27)
[2022-03-27] MEDS: metFORMIN HCl 500 MG TABLET PO ×2 (09:27→21:14)
[2022-03-27] MEDS: Benztropine Mesylate 1 MG TABLET PO (09:27)
[2022-03-27] MEDS: Docusate Sodium 100 MG CAPSULE PO ×2 (09:27→21:14)
[2022-03-27] MEDS: Escitalopram Oxalate 20 MG TABLET PO (09:27)
[2022-03-27] MEDS: Fluticasone Propionate Nasal 16 GM SPRAY 1 SPRAY NOSTRIL-B (09:32)
--- NOTE | 2022-03-27 10:37 | HO.PSYCHPN ---
Subjective Subjective Date of Service: 03/27/22 Reason For Visit: paranoia/SI Interim History: The patient is withdrawn somewhat lethargic and disorganized was not combative her agitated case reviewed with nursing staff social work and treatment planning plan to return to senior living patient was somewhat lethargic withdrawn Medication Compliance: Yes Side effects from medications: Yes Mental Status Exam Mental Status Exam Patient Appearance: Fatigued Patient Orientation: Person and Place Level of Consciousness: Lethargic Patient Behavior: Guarded and Passive Thought Content: positive for [place], positive for Slowed Thinking and positive for Disorganized Depressive Symptoms: Increased Anxiety and Increased Fatigue Judgement: Fair Diagnostics Vital Signs (24Hr): Vital Signs - 24 hr 03/26/22 18:00 03/27/22 08:47 Temperature 98.4 F 97.8 F Pulse Rate 106 H 86 Respiratory Rate 18 Blood Pressure 129/80 142/63 H Pulse Oximetry 100 Oxygen Delivery Method Room Air BMI result Body Mass Index 51.5 Labs Results: 03/19/22 12:52 03/27/22 08:19 Medications Medications Current Medications Acetaminophen (Acetaminophen 325 Mg Tablet) 650 mg PO Q6H PRN PRN Reason: Headache/Pain Mild Scale (1-3) Last Admin: 03/25/22 08:43 Dose: 650 mg Al Hydroxide/Mg Hydroxide (Magnesium Hydrox/Alum Hydrox 30 Ml Oral.Susp) 30 ml PO Q6H PRN PRN Reason: Heartburn/Nausea Benztropine Mesylate (Benztropine Mesylate 1 Mg Tablet) 1 mg PO DAILY [facility] Last Admin: 03/27/22 09:27 Dose: 1 mg Diphenhydramine HCl (Diphenhydramine Hcl 25 Mg Capsule) 50 mg PO Q4H PRN PRN Reason: agitation Divalproex Sodium (Divalproex Sodium 250 Mg Tablet.Dr) 1,250 mg PO BEDTIME [facility] Last Admin: 03/26/22 21:30 Dose: 1,250 mg Divalproex Sodium (Divalproex Sodium Er 500 Mg Tab.Er.24h) 500 mg PO DAILY [facility] Last Admin: 03/27/22 09:27 Dose: 500 mg Docusate Sodium (Docusate Sodium 100 Mg Capsule) 100 mg PO BID [facility] Last Admin: 03/27/22 09:27 Dose: 100 mg Escitalopram Oxalate (Escitalopram Oxalate 20 Mg Tablet) 20 mg PO DAILY [facility] Last Admin: 03/27/22 09:27 Dose: 20 mg Fluticasone Propionate (Fluticasone Propionate Nasal 16 Gm [place]) 1 spray NOSTRIL-B DAILY [facility] Last Admin: 03/27/22 09:32 Dose: 1 spray Haloperidol (Haloperidol 5 Mg Tablet) 5 mg PO Q4H PRN PRN Reason: agitation Hydroxyzine HCl (Hydroxyzine Hcl 25 Mg Tablet) 25 mg PO Q6H PRN PRN Reason: Anxiety Last Admin: 03/25/22 13:17 Dose: 25 mg Magnesium Hydroxide (Milk Of Magnesia 30 Ml Oral.Susp) 30 ml PO DAILY PRN PRN Reason: Constipation Metformin HCl (Metformin Hcl 500 Mg Tablet) 500 mg PO BID [facility] Last Admin: 03/27/22 09:27 Dose: 500 mg Nicotine Polacrilex (Nicotine Polacrilex 2 Mg Gum) 4 mg BUCCAL Q2H PRN PRN Reason: Nicotine Cravings Olanzapine (Olanzapine 5 Mg Tablet) 25 mg PO BEDTIME [facility] Last Admin: 03/26/22 21:31 Dose: 25 mg Trazodone HCl (Trazodone Hcl 50 Mg Tablet) 150 mg PO BEDTIME [facility] Last Admin: 03/26/22 21:31 Dose: 150 mg Allergies Allergies Allergy/AdvReac Type Severity Reaction Status Date / Time No Known Allergies Allergy Verified 03/19/22 11:48 Assessment & Plan Assessment & Plan (1) Schizoaffective disorder: Status: Acute Code(s): F25.9 - Schizoaffective disorder, unspecified (2) PTSD (post-traumatic stress disorder): Status: Suspected Code(s): F43.10 - Post-traumatic stress disorder, unspecified (3) Cocaine abuse: Status: Acute Code(s): F14.10 - Cocaine abuse, uncomplicated Plan pt is a 41 yo female with dx of schizoaffective disorder, PTSD and cocaine abuse who presents for disorganized behavior in face of going off her medications. -pt restarted on her medications and currently calm, though disorganized. Poor insight -will get collateral 03/22 left leg examined; muscle tenderness due to muscle strain 03/23 says leg feels a little better; still disorganized but little more engaged, out in milue more 03/24 patient with brighter affect and less speech latency. Remains not attending to ADLs (though said she did); continue current treatment regimen. Patient has been off her medications for few weeks and it will likely take longer for them to again become therapeutic. Discussed case with high school social studies tutor who called senior living and waiting to hear back to find baseline; Discussed case with nursing staff who will encourage patient to bathe, brush teeth 03/25 remains a little brighter than on admission, less speech latency. Still disorganized as she refuses to bathe, pressure teeth and she remains malodorous. Patient keeps saying she will bathe but then refuses to do so, despite prompting and encouragement by staff. Patient's Depakote level is within normal limits; while there is room to increase the dose, patient has apparently been on this current medication regimen for years; as she has been off medications for some time, life underwriter does not want to prematurely increase her dose or add another medication, complicating things with polypharmacy and increasing risk of side effects; rather will continue to allow current medication regimen more time to become therapeutic. At patient's senior living she attends to her ADLs and life underwriter agrees the patient should be much closer to baseline before discharging. 03/27/2022 Patient not overly agitated somewhat disorganized withdrawn question sedated to some degree with Depakote and antipsychotic ongoing leg pain PLAN: CV q15min checks -Depakote level: 65 -Liver/ammonia: WNL Naproxen 500mg for 3 days for muscle strain continue Depakote continue Zyprexa continue benztropine continue lexapro continue metformin obtain collateral Reason for contiued inpatient stay Substantial Risk for: inability to function, rapid decompensation and med/psych decompensation Time Spent With Patient Time: Total time managing care of this patient today ____ minutes.
[2022-03-27 12:47] LABS: Creatinine Clr Calc Pharmacy 162.5; Estimated Glomerular Filt Rate > 60
[2022-03-27 16:10] VITALS: BP 115/64; PULSE 90; TEMP 36.1
[2022-03-27] MEDS: Acetaminophen 325 MG TABLET 650 MG PO (16:32)
[2022-03-27] MEDS: Divalproex Sodium 250 MG TABLET.DR 1250 MG PO (21:14)
[2022-03-27] MEDS: traZODone HCL 50 MG TABLET 150 MG PO (21:15)
[2022-03-27] MEDS: OLANZapine 5 MG TABLET 25 MG PO (21:16)
[2022-03-28 09:12] VITALS: BP 122/88; PULSE 77; RESP 16; TEMP 36.5; O2SAT 97
[2022-03-28] MEDS: Docusate Sodium 100 MG CAPSULE PO ×2 (09:13→20:32)
[2022-03-28] MEDS: metFORMIN HCl 500 MG TABLET PO ×2 (09:13→20:32)
[2022-03-28] MEDS: Divalproex Sodium ER 500 MG TAB.ER.24H PO (09:13)
[2022-03-28] MEDS: Fluticasone Propionate Nasal 16 GM SPRAY 1 SPRAY NOSTRIL-B (09:13)
[2022-03-28] MEDS: Benztropine Mesylate 1 MG TABLET PO (09:13)
[2022-03-28] MEDS: Escitalopram Oxalate 20 MG TABLET PO (09:13)
--- NOTE | 2022-03-28 10:51 | HO.PSYCHPN ---
Subjective Subjective Date of Service: 03/28/22 Reason For Visit: paranoia/SI Subjective Notes: Conditional Voluntary Interim History: Patient was seen and discussed in rounds today. Records and plans were reviewed. She continues to be somewhat withdrawn and depressed. She has been sleeping, may be excessively. She is safe on the unit. No complaints or side effects. Eating Medication Compliance: Yes Side effects from medications: No Attending Groups: Intermittent Review of Systems Review of Systems Yes all other systems are reviewed and are negative Diagnostics Vital Signs (24Hr): Vital Signs - 24 hr 03/27/22 16:10 03/28/22 09:12 Temperature 97.0 F 97.7 F Pulse Rate 90 77 Respiratory Rate 16 Blood Pressure 115/64 122/88 Pulse Oximetry 97 Oxygen Delivery Method Room Air BMI result Body Mass Index 51.5 Labs Results: 03/19/22 12:52 03/27/22 08:19 Labs: Laboratory Results - last 48 hr 03/27/22 08:19 Creatinine 0.64 Estim Creat Clear Calc 162.5 Estimated GFR > 60 Medications Medications Current Medications Acetaminophen (Acetaminophen 325 Mg Tablet) 650 mg PO Q6H PRN PRN Reason: Headache/Pain Mild Scale (1-3) Last Admin: 03/27/22 16:32 Dose: 650 mg Al Hydroxide/Mg Hydroxide (Magnesium Hydrox/Alum Hydrox 30 Ml Oral.Susp) 30 ml PO Q6H PRN PRN Reason: Heartburn/Nausea Benztropine Mesylate (Benztropine Mesylate 1 Mg Tablet) 1 mg PO DAILY [facility] Last Admin: 03/28/22 09:13 Dose: 1 mg Diphenhydramine HCl (Diphenhydramine Hcl 25 Mg Capsule) 50 mg PO Q4H PRN PRN Reason: agitation Divalproex Sodium (Divalproex Sodium 250 Mg Tablet.) 1,250 mg PO BEDTIME [facility] Last Admin: 03/27/22 21:14 Dose: 1,250 mg Divalproex Sodium (Divalproex Sodium Er 500 Mg Tab.Er.24h) 500 mg PO DAILY [facility] Last Admin: 03/28/22 09:13 Dose: 500 mg Docusate Sodium (Docusate Sodium 100 Mg Capsule) 100 mg PO BID [facility] Last Admin: 03/28/22 09:13 Dose: 100 mg Escitalopram Oxalate (Escitalopram Oxalate 20 Mg Tablet) 20 mg PO DAILY [facility] Last Admin: 03/28/22 09:13 Dose: 20 mg Fluticasone Propionate (Fluticasone Propionate Nasal 16 Gm [place]) 1 spray NOSTRIL-B DAILY [facility] Last Admin: 03/28/22 09:13 Dose: 1 spray Haloperidol (Haloperidol 5 Mg Tablet) 5 mg PO Q4H PRN PRN Reason: agitation Hydroxyzine HCl (Hydroxyzine Hcl 25 Mg Tablet) 25 mg PO Q6H PRN PRN Reason: Anxiety Last Admin: 03/25/22 13:17 Dose: 25 mg Magnesium Hydroxide (Milk Of Magnesia 30 Ml Oral.Susp) 30 ml PO DAILY PRN PRN Reason: Constipation Metformin HCl (Metformin Hcl 500 Mg Tablet) 500 mg PO BID [facility] Last Admin: 03/28/22 09:13 Dose: 500 mg Nicotine Polacrilex (Nicotine Polacrilex 2 Mg Gum) 4 mg BUCCAL Q2H PRN PRN Reason: Nicotine Cravings Olanzapine (Olanzapine 5 Mg Tablet) 25 mg PO BEDTIME [facility] Last Admin: 03/27/22 21:16 Dose: 25 mg Trazodone HCl (Trazodone Hcl 50 Mg Tablet) 150 mg PO BEDTIME [facility] Last Admin: 03/27/22 21:15 Dose: 150 mg Allergies Allergies Allergy/AdvReac Type Severity Reaction Status Date / Time No Known Allergies Allergy Verified 03/19/22 11:48 Assessment & Plan Assessment & Plan (1) Schizoaffective disorder: Status: Acute Code(s): F25.9 - Schizoaffective disorder, unspecified (2) PTSD (post-traumatic stress disorder): Status: Suspected Code(s): F43.10 - Post-traumatic stress disorder, unspecified (3) Cocaine abuse: Status: Acute Code(s): F14.10 - Cocaine abuse, uncomplicated Plan pt is a 41 yo female with dx of schizoaffective disorder, PTSD and cocaine abuse who presents for disorganized behavior in face of going off her medications. -pt restarted on her medications and currently calm, though disorganized. Poor insight -will get collateral 03/22 left leg examined; muscle tenderness due to muscle strain 03/23 says leg feels a little better; still disorganized but little more engaged, out in milue more 03/24 patient with brighter affect and less speech latency. Remains not attending to ADLs (though said she did); continue current treatment regimen. Patient has been off her medications for few weeks and it will likely take longer for them to again become therapeutic. Discussed case with social work professor who called long-term and waiting to hear back to find baseline; Discussed case with nursing staff who will encourage patient to bathe, brush teeth 03/25 remains a little brighter than on admission, less speech latency. Still disorganized as she refuses to bathe, pressure teeth and she remains malodorous. Patient keeps saying she will bathe but then refuses to do so, despite prompting and encouragement by staff. Patient's Depakote level is within normal limits; while there is room to increase the dose, patient has apparently been on this current medication regimen for years; as she has been off medications for some time, service writer advisor does not want to prematurely increase her dose or add another medication, complicating things with polypharmacy and increasing risk of side effects; rather will continue to allow current medication regimen more time to become therapeutic. At patient's long-term she attends to her ADLs and service writer advisor agrees the patient should be much closer to baseline before discharging. 03/27/2022 Patient not overly agitated somewhat disorganized withdrawn question sedated to some degree with Depakote and antipsychotic ongoing leg pain PLAN: CV q15min checks -Depakote level: 65 -Liver/ammonia: WNL Naproxen 500mg for 3 days for muscle strain continue Depakote continue Zyprexa continue benztropine continue lexapro continue metformin obtain collateral 03/28: Continue current regimen and plans Reason for contiued inpatient stay Substantial Risk for: med/psych decompensation Time Spent With Patient Time: Total time managing care of this patient today ____ minutes.
[2022-03-28] MEDS: Acetaminophen 325 MG TABLET 650 MG PO ×2 (12:05→20:32)
[2022-03-28 19:24] VITALS: BP 123/68; PULSE 90; RESP 18; TEMP 36.1; O2SAT 96
[2022-03-28] MEDS: traZODone HCL 50 MG TABLET 150 MG PO (20:31)
[2022-03-28] MEDS: OLANZapine 5 MG TABLET 25 MG PO (20:31)
[2022-03-28] MEDS: Divalproex Sodium 250 MG TABLET.DR 1250 MG PO (20:31)
[2022-03-29 08:21] VITALS: BP 118/73; PULSE 87; RESP 18; TEMP 37.1; O2SAT 96
[2022-03-29] MEDS: Divalproex Sodium ER 500 MG TAB.ER.24H PO (09:17)
[2022-03-29] MEDS: Escitalopram Oxalate 20 MG TABLET PO (09:17)
[2022-03-29] MEDS: metFORMIN HCl 500 MG TABLET PO ×2 (09:17→19:22)
[2022-03-29] MEDS: Docusate Sodium 100 MG CAPSULE PO ×2 (09:19→19:20)
[2022-03-29] MEDS: Benztropine Mesylate 1 MG TABLET PO (09:20)
--- NOTE | 2022-03-29 10:41 | HO.PSYCHPN ---
Subjective Subjective Date of Service: 03/29/22 Reason For Visit: paranoia/SI Subjective Notes: Conditional Voluntary Interim History: Patient was seen and discussed in rounds today. Records and plans were reviewed. She has continued to be mostly isolative. She is visible though times. She is depressed. Has been complaining of left leg pain which is not new. No complaints otherwise. No side effects. Eating and sleeping adequately. No changes were made today Medication Compliance: Yes Side effects from medications: No Attending Groups: Intermittent Review of Systems Review of Systems Left leg pain Yes all other systems are reviewed and are negative Diagnostics Vital Signs (24Hr): Vital Signs - 24 hr 03/28/22 19:24 03/29/22 08:21 Temperature 97 F 98.8 F Pulse Rate 90 87 Respiratory Rate 18 18 Blood Pressure 123/68 118/73 Pulse Oximetry 96 96 Oxygen Delivery Method Room Air Room Air BMI result Body Mass Index 51.5 Labs Results: 03/19/22 12:52 03/27/22 08:19 Labs: Laboratory Results - last 48 hr 03/27/22 08:19 Creatinine 0.64 Estim Creat Clear Calc 162.5 Estimated GFR > 60 Medications Medications Current Medications Acetaminophen (Acetaminophen 325 Mg Tablet) 650 mg PO Q6H PRN PRN Reason: Headache/Pain Mild Scale (1-3) Last Admin: 03/28/22 20:32 Dose: 650 mg Al Hydroxide/Mg Hydroxide (Magnesium Hydrox/Alum Hydrox 30 Ml Oral.Susp) 30 ml PO Q6H PRN PRN Reason: Heartburn/Nausea Benztropine Mesylate (Benztropine Mesylate 1 Mg Tablet) 1 mg PO DAILY [facility] Last Admin: 03/29/22 09:20 Dose: 1 mg Diphenhydramine HCl (Diphenhydramine Hcl 25 Mg Capsule) 50 mg PO Q4H PRN PRN Reason: agitation Divalproex Sodium (Divalproex Sodium 250 Mg Tablet.Dr) 1,250 mg PO BEDTIME [facility] Last Admin: 03/28/22 20:31 Dose: 1,250 mg Divalproex Sodium (Divalproex Sodium Er 500 Mg Tab.Er.24h) 500 mg PO DAILY [facility] Last Admin: 03/29/22 09:17 Dose: 500 mg Docusate Sodium (Docusate Sodium 100 Mg Capsule) 100 mg PO BID [facility] Last Admin: 03/29/22 09:19 Dose: 100 mg Escitalopram Oxalate (Escitalopram Oxalate 20 Mg Tablet) 20 mg PO DAILY [facility] Last Admin: 03/29/22 09:17 Dose: 20 mg Fluticasone Propionate (Fluticasone Propionate Nasal 16 Gm [place]) 1 spray NOSTRIL-B DAILY [facility] Last Admin: 03/29/22 09:20 Dose: Not Given Haloperidol (Haloperidol 5 Mg Tablet) 5 mg PO Q4H PRN PRN Reason: agitation Hydroxyzine HCl (Hydroxyzine Hcl 25 Mg Tablet) 25 mg PO Q6H PRN PRN Reason: Anxiety Last Admin: 03/25/22 13:17 Dose: 25 mg Magnesium Hydroxide (Milk Of Magnesia 30 Ml Oral.Susp) 30 ml PO DAILY PRN PRN Reason: Constipation Metformin HCl (Metformin Hcl 500 Mg Tablet) 500 mg PO BID [facility] Last Admin: 03/29/22 09:17 Dose: 500 mg Nicotine Polacrilex (Nicotine Polacrilex 2 Mg Gum) 4 mg BUCCAL Q2H PRN PRN Reason: Nicotine Cravings Olanzapine (Olanzapine 5 Mg Tablet) 25 mg PO BEDTIME [facility] Last Admin: 03/28/22 20:31 Dose: 25 mg Trazodone HCl (Trazodone Hcl 50 Mg Tablet) 150 mg PO BEDTIME [facility] Last Admin: 03/28/22 20:31 Dose: 150 mg Allergies Allergies Allergy/AdvReac Type Severity Reaction Status Date / Time No Known Allergies Allergy Verified 03/19/22 11:48 Assessment & Plan Assessment & Plan (1) Schizoaffective disorder: Status: Acute Code(s): F25.9 - Schizoaffective disorder, unspecified (2) PTSD (post-traumatic stress disorder): Status: Suspected Code(s): F43.10 - Post-traumatic stress disorder, unspecified (3) Cocaine abuse: Status: Acute Code(s): F14.10 - Cocaine abuse, uncomplicated Plan pt is a 41 yo female with dx of schizoaffective disorder, PTSD and cocaine abuse who presents for disorganized behavior in face of going off her medications. -pt restarted on her medications and currently calm, though disorganized. Poor insight -will get collateral 03/22 left leg examined; muscle tenderness due to muscle strain 03/23 says leg feels a little better; still disorganized but little more engaged, out in milue more 03/24 patient with brighter affect and less speech latency. Remains not attending to ADLs (though said she did); continue current treatment regimen. Patient has been off her medications for few weeks and it will likely take longer for them to again become therapeutic. Discussed case with social service technician who called [facility] and waiting to hear back to find baseline; Discussed case with nursing staff who will encourage patient to bathe, brush teeth 03/25 remains a little brighter than on admission, less speech latency. Still disorganized as she refuses to bathe, pressure teeth and she remains malodorous. Patient keeps saying she will bathe but then refuses to do so, despite prompting and encouragement by staff. Patient's Depakote level is within normal limits; while there is room to increase the dose, patient has apparently been on this current medication regimen for years; as she has been off medications for some time, handbook writer does not want to prematurely increase her dose or add another medication, complicating things with polypharmacy and increasing risk of side effects; rather will continue to allow current medication regimen more time to become therapeutic. At [facility]'s [facility] she attends to her ADLs and handbook writer agrees the patient should be much closer to baseline before discharging. 03/27/2022 Patient not overly agitated somewhat disorganized withdrawn question sedated to some degree with Depakote and antipsychotic ongoing leg pain PLAN: CV q15min checks -Depakote level: 65 -Liver/ammonia: WNL Naproxen 500mg for 3 days for muscle strain continue Depakote continue Zyprexa continue benztropine continue lexapro continue metformin obtain collateral 03/28: Continue current regimen and plans 03/29: Continue current plans and regimen Reason for contiued inpatient stay Substantial Risk for: med/psych decompensation Time Spent With Patient Time: Total time managing care of this patient today ____ minutes.
[2022-03-29 16:15] VITALS: BP 111/59; PULSE 98; TEMP 36.2
[2022-03-29] MEDS: Divalproex Sodium 250 MG TABLET.DR 1250 MG PO (19:19)
[2022-03-29] MEDS: OLANZapine 5 MG TABLET 25 MG PO (19:20)
[2022-03-29] MEDS: traZODone HCL 50 MG TABLET 150 MG PO (19:21)
[2022-03-30 06:00] VITALS: BP 136/88; PULSE 105; RESP 16; TEMP 36.2; O2SAT 100
[2022-03-30] MEDS: Docusate Sodium 100 MG CAPSULE PO ×2 (08:05→20:00)
[2022-03-30] MEDS: Escitalopram Oxalate 20 MG TABLET PO (08:05)
[2022-03-30] MEDS: metFORMIN HCl 500 MG TABLET PO ×2 (08:05→20:00)
[2022-03-30] MEDS: Divalproex Sodium ER 500 MG TAB.ER.24H PO (08:05)
[2022-03-30] MEDS: Benztropine Mesylate 1 MG TABLET PO (08:05)
[2022-03-30] MEDS: Fluticasone Propionate Nasal 16 GM SPRAY 1 SPRAY NOSTRIL-B (08:05)
[2022-03-30] MEDS: Acetaminophen 325 MG TABLET 650 MG PO ×2 (08:16→16:26)
--- NOTE | 2022-03-30 09:34 | HO.PSYCHPN ---
Subjective Subjective Date of Service: 03/30/22 Reason For Visit: paranoia/SI Subjective Notes: Conditional Voluntary Interim History: Patient was seen and discussed in rounds today. Records and plans were reviewed. She continues to be guarded with flat affect. Sleeping excessively during the day but does come out some. No complaints or side effects. No SI. No changes were made today Medication Compliance: Yes Side effects from medications: No Attending Groups: Intermittent Review of Systems Review of Systems Left leg pain Yes all other systems are reviewed and are negative Mental Status Exam Mental Status Exam Narrative: In today's visit she is alert, oriented and pleasant. She was in bed. Speech is soft-spoken. Moderate eye contact. Affect is flat and constricted. No signs of psychosis. No SI. Cognitively she is intact with slow thought processes. Judgment is intact Diagnostics Vital Signs (24Hr): Vital Signs - 24 hr 03/29/22 16:15 03/30/22 06:00 Temperature 97.2 F 97.1 F Pulse Rate 98 105 H Respiratory Rate 16 Blood Pressure 111/59 L 136/88 Pulse Oximetry 100 Oxygen Delivery Method Room Air BMI result Body Mass Index 51.5 Labs Results: 03/19/22 12:52 03/27/22 08:19 Medications Medications Current Medications Acetaminophen (Acetaminophen 325 Mg Tablet) 650 mg PO Q6H PRN PRN Reason: Headache/Pain Mild Scale (1-3) Last Admin: 03/30/22 08:16 Dose: 650 mg Al Hydroxide/Mg Hydroxide (Magnesium Hydrox/Alum Hydrox 30 Ml Oral.Susp) 30 ml PO Q6H PRN PRN Reason: Heartburn/Nausea Benztropine Mesylate (Benztropine Mesylate 1 Mg Tablet) 1 mg PO DAILY [facility] Last Admin: 03/30/22 08:05 Dose: 1 mg Diphenhydramine HCl (Diphenhydramine Hcl 25 Mg Capsule) 50 mg PO Q4H PRN PRN Reason: agitation Divalproex Sodium (Divalproex Sodium 250 Mg Tablet.Dr) 1,250 mg PO BEDTIME [facility] Last Admin: 03/29/22 19:19 Dose: 1,250 mg Divalproex Sodium (Divalproex Sodium Er 500 Mg Tab.Er.24h) 500 mg PO DAILY [facility] Last Admin: 03/30/22 08:05 Dose: 500 mg Docusate Sodium (Docusate Sodium 100 Mg Capsule) 100 mg PO BID [facility] Last Admin: 03/30/22 08:05 Dose: 100 mg Escitalopram Oxalate (Escitalopram Oxalate 20 Mg Tablet) 20 mg PO DAILY [facility] Last Admin: 03/30/22 08:05 Dose: 20 mg Fluticasone Propionate (Fluticasone Propionate Nasal 16 Gm [place]) 1 spray NOSTRIL-B DAILY [facility] Last Admin: 03/30/22 08:05 Dose: 1 spray Haloperidol (Haloperidol 5 Mg Tablet) 5 mg PO Q4H PRN PRN Reason: agitation Hydroxyzine HCl (Hydroxyzine Hcl 25 Mg Tablet) 25 mg PO Q6H PRN PRN Reason: Anxiety Last Admin: 03/25/22 13:17 Dose: 25 mg Magnesium Hydroxide (Milk Of Magnesia 30 Ml Oral.Susp) 30 ml PO DAILY PRN PRN Reason: Constipation Metformin HCl (Metformin Hcl 500 Mg Tablet) 500 mg PO BID [facility] Last Admin: 03/30/22 08:05 Dose: 500 mg Nicotine Polacrilex (Nicotine Polacrilex 2 Mg Gum) 4 mg BUCCAL Q2H PRN PRN Reason: Nicotine Cravings Olanzapine (Olanzapine 5 Mg Tablet) 25 mg PO BEDTIME [facility] Last Admin: 03/29/22 19:20 Dose: 25 mg Trazodone HCl (Trazodone Hcl 50 Mg Tablet) 150 mg PO BEDTIME [facility] Last Admin: 03/29/22 19:21 Dose: 150 mg Allergies Allergies Allergy/AdvReac Type Severity Reaction Status Date / Time No Known Allergies Allergy Verified 03/19/22 11:48 Assessment & Plan Assessment & Plan (1) Schizoaffective disorder: Status: Acute Code(s): F25.9 - Schizoaffective disorder, unspecified (2) PTSD (post-traumatic stress disorder): Status: Suspected Code(s): F43.10 - Post-traumatic stress disorder, unspecified (3) Cocaine abuse: Status: Acute Code(s): F14.10 - Cocaine abuse, uncomplicated Plan pt is a 41 yo female with dx of schizoaffective disorder, PTSD and cocaine abuse who presents for disorganized behavior in face of going off her medications. -pt restarted on her medications and currently calm, though disorganized. Poor insight -will get collateral 03/22 left leg examined; muscle tenderness due to muscle strain 03/23 says leg feels a little better; still disorganized but little more engaged, out in milue more 03/24 patient with brighter affect and less speech latency. Remains not attending to ADLs (though said she did); continue current treatment regimen. Patient has been off her medications for few weeks and it will likely take longer for them to again become therapeutic. Discussed case with social services designee who called senior living and waiting to hear back to find baseline; Discussed case with nursing staff who will encourage patient to bathe, brush teeth 03/25 remains a little brighter than on admission, less speech latency. Still disorganized as she refuses to bathe, pressure teeth and she remains malodorous. Patient keeps saying she will bathe but then refuses to do so, despite prompting and encouragement by staff. Patient's Depakote level is within normal limits; while there is room to increase the dose, patient has apparently been on this current medication regimen for years; as she has been off medications for some time, junior underwriter does not want to prematurely increase her dose or add another medication, complicating things with polypharmacy and increasing risk of side effects; rather will continue to allow current medication regimen more time to become therapeutic. At patient's senior living she attends to her ADLs and junior underwriter agrees the patient should be much closer to baseline before discharging. 03/27/2022 Patient not overly agitated somewhat disorganized withdrawn question sedated to some degree with Depakote and antipsychotic ongoing leg pain PLAN: CV q15min checks -Depakote level: 65 -Liver/ammonia: WNL Naproxen 500mg for 3 days for muscle strain continue Depakote continue Zyprexa continue benztropine continue lexapro continue metformin obtain collateral 03/28: Continue current regimen and plans 03/29: Continue current plans and regimen 03/30: Continue current regimen and plans Reason for contiued inpatient stay Substantial Risk for: med/psych decompensation Time Spent With Patient Time: Total time managing care of this patient today ____ minutes.
[2022-03-30 16:08] VITALS: BP 159/72; PULSE 107; RESP 18; TEMP 36.7; O2SAT 99
[2022-03-30] MEDS: Divalproex Sodium 250 MG TABLET.DR 1250 MG PO (20:00)
[2022-03-30] MEDS: OLANZapine 5 MG TABLET 25 MG PO (20:00)
[2022-03-30] MEDS: traZODone HCL 50 MG TABLET 150 MG PO (20:00)
[2022-03-31 08:51] VITALS: PULSE 97; RESP 18; TEMP 37; O2SAT 98
[2022-03-31] MEDS: Benztropine Mesylate 1 MG TABLET PO (08:52)
[2022-03-31] MEDS: Docusate Sodium 100 MG CAPSULE PO ×2 (08:52→20:53)
[2022-03-31] MEDS: Divalproex Sodium ER 500 MG TAB.ER.24H PO (08:52)
[2022-03-31] MEDS: Acetaminophen 325 MG TABLET 650 MG PO ×2 (08:52→21:14)
[2022-03-31] MEDS: metFORMIN HCl 500 MG TABLET PO ×2 (08:53→20:54)
[2022-03-31] MEDS: Escitalopram Oxalate 20 MG TABLET PO (08:53)
--- NOTE | 2022-03-31 13:01 | HO.PSYCHPN ---
Subjective Subjective Date of Service: 03/31/22 Reason For Visit: paranoia/SI Interim History: reports she's feeling back to her regular self and that she's good. She denies any AVH. She said she stopped bathing regularly since I was just getting lazy and that her leg hurt. Patient says her leg is definitely feeling better. She explained the procedure she had recently at [facility] which was an ultrasound that was negative for DVT. Patient said she is ready to return home. She agrees to continue to attend her ADLs. She denies any SI or HI. Denies any medication side effects. Mental Status Exam Mental Status Exam Narrative: Pt is alert and oriented; behavior is cooperative and calm, friendly; patient is not in distress; unkempt hair, but adequate hygiene; mood is described as good and affect more naturally expressive; eye contact appropriate; Speech not latent; normal rate, volume and prosody and not pressured; no psychomotor agitation/retardation present; thought process goal directed; otherwise goal oriented; Thought content is on discharge; denies AVH; denies any SI/HI. Patients insight and judgment are fair. Diagnostics Vital Signs (24Hr): Vital Signs - 24 hr 03/30/22 16:08 03/31/22 08:51 Temperature 98.0 F 98.6 F Pulse Rate 107 H 97 Respiratory Rate 18 18 Blood Pressure 159/72 H Pulse Oximetry 99 98 Oxygen Delivery Method Room Air Room Air BMI result Body Mass Index 51.5 Labs Results: 03/19/22 12:52 03/27/22 08:19 Medications Medications Current Medications Acetaminophen (Acetaminophen 325 Mg Tablet) 650 mg PO Q6H PRN PRN Reason: Headache/Pain Mild Scale (1-3) Last Admin: 03/31/22 08:52 Dose: 650 mg Al Hydroxide/Mg Hydroxide (Magnesium Hydrox/Alum Hydrox 30 Ml Oral.Susp) 30 ml PO Q6H PRN PRN Reason: Heartburn/Nausea Benztropine Mesylate (Benztropine Mesylate 1 Mg Tablet) 1 mg PO DAILY [facility] Last Admin: 03/31/22 08:52 Dose: 1 mg Diphenhydramine HCl (Diphenhydramine Hcl 25 Mg Capsule) 50 mg PO Q4H PRN PRN Reason: agitation Divalproex Sodium (Divalproex Sodium 250 Mg Tablet.) 1,250 mg PO BEDTIME [facility] Last Admin: 03/30/22 20:00 Dose: 1,250 mg Divalproex Sodium (Divalproex Sodium Er 500 Mg Tab.Er.24h) 500 mg PO DAILY [facility] Last Admin: 03/31/22 08:52 Dose: 500 mg Docusate Sodium (Docusate Sodium 100 Mg Capsule) 100 mg PO BID [facility] Last Admin: 03/31/22 08:52 Dose: 100 mg Escitalopram Oxalate (Escitalopram Oxalate 20 Mg Tablet) 20 mg PO DAILY [facility] Last Admin: 03/31/22 08:53 Dose: 20 mg Fluticasone Propionate (Fluticasone Propionate Nasal 16 Gm [place]) 1 spray NOSTRIL-B DAILY [facility] Last Admin: 03/31/22 09:09 Dose: Not Given Haloperidol (Haloperidol 5 Mg Tablet) 5 mg PO Q4H PRN PRN Reason: agitation Hydroxyzine HCl (Hydroxyzine Hcl 25 Mg Tablet) 25 mg PO Q6H PRN PRN Reason: Anxiety Last Admin: 03/25/22 13:17 Dose: 25 mg Magnesium Hydroxide (Milk Of Magnesia 30 Ml Oral.Susp) 30 ml PO DAILY PRN PRN Reason: Constipation Metformin HCl (Metformin Hcl 500 Mg Tablet) 500 mg PO BID [facility] Last Admin: 03/31/22 08:53 Dose: 500 mg Nicotine Polacrilex (Nicotine Polacrilex 2 Mg Gum) 4 mg BUCCAL Q2H PRN PRN Reason: Nicotine Cravings Olanzapine (Olanzapine 5 Mg Tablet) 25 mg PO BEDTIME [facility] Last Admin: 03/30/22 20:00 Dose: 25 mg Trazodone HCl (Trazodone Hcl 50 Mg Tablet) 150 mg PO BEDTIME [facility] Last Admin: 03/30/22 20:00 Dose: 150 mg Allergies Allergies Allergy/AdvReac Type Severity Reaction Status Date / Time No Known Allergies Allergy Verified 03/19/22 11:48 Assessment & Plan Assessment & Plan (1) Schizoaffective disorder: Status: Acute Code(s): F25.9 - Schizoaffective disorder, unspecified (2) PTSD (post-traumatic stress disorder): Status: Suspected Code(s): F43.10 - Post-traumatic stress disorder, unspecified (3) Cocaine abuse: Status: Acute Code(s): F14.10 - Cocaine abuse, uncomplicated Plan pt is a 41 yo female with dx of schizoaffective disorder, PTSD and cocaine abuse who presents for disorganized behavior in face of going off her medications. -pt restarted on her medications and currently calm, though disorganized. Poor insight -will get collateral 03/22 left leg examined; muscle tenderness due to muscle strain 03/23 says leg feels a little better; still disorganized but little more engaged, out in milue more 03/24 patient with brighter affect and less speech latency. Remains not attending to ADLs (though said she did); continue current treatment regimen. Patient has been off her medications for few weeks and it will likely take longer for them to again become therapeutic. Discussed case with social work nurse who called [facility] and waiting to hear back to find baseline; Discussed case with nursing staff who will encourage patient to bathe, brush teeth 03/25 remains a little brighter than on admission, less speech latency. Still disorganized as she refuses to bathe, pressure teeth and she remains malodorous. Patient keeps saying she will bathe but then refuses to do so, despite prompting and encouragement by staff. Patient's Depakote level is within normal limits; while there is room to increase the dose, patient has apparently been on this current medication regimen for years; as she has been off medications for some time, senior writer does not want to prematurely increase her dose or add another medication, complicating things with polypharmacy and increasing risk of side effects; rather will continue to allow current medication regimen more time to become therapeutic. At patient's [facility] she attends to her ADLs and senior writer agrees the patient should be much closer to baseline before discharging. 03/27/2022 Patient not overly agitated somewhat disorganized withdrawn question sedated to some degree with Depakote and antipsychotic ongoing leg pain 03/28: Continue current regimen and plans 03/29: Continue current plans and regimen 03/30: Continue current regimen and plans 03/31; patient reports she is back to her regular self; she acknowledges that she was not attending to ADLs and saying she was lazy but has recently been adherent and says she will continue to do so. Denies any medication side effects; denies any psychiatric symptoms including AVH. She feels ready to return home. Patient is either at or close to baseline; she has had no recent history of unsafe behaviors; she is organized and with adequate insight. She is returning to supportive structured environment of [facility]. Patient is not in imminent risk of harm to self or others and her request for discharge honored. -despite request, [facility] did not send over imaging report; however patient's description she clearly got an ultrasound which she said was negative to rule out DVT PLAN: CV q15min checks -Depakote level: 65 -Liver/ammonia: WNL Naproxen 500mg for 3 days for muscle strain continue Depakote continue Zyprexa continue benztropine continue lexapro continue metformin obtain collateral Patient educated on: diagnosis and medical condition Informed Consent: understands Reason for contiued inpatient stay Substantial Risk for: stable for discharge Time Spent With Patient Time: Total time managing care of this patient today ____ minutes.
[2022-03-31 17:58] VITALS: BP 127/86; PULSE 91; RESP 18; TEMP 36.2; O2SAT 98
[2022-03-31] MEDS: Divalproex Sodium 250 MG TABLET.DR 1250 MG PO (20:52)
[2022-03-31] MEDS: OLANZapine 5 MG TABLET 25 MG PO (20:53)
[2022-03-31] MEDS: traZODone HCL 50 MG TABLET 150 MG PO (20:54)
[2022-04-01 08:02] VITALS: BP 131/73; PULSE 72; RESP 16; TEMP 36.8; O2SAT 100
[2022-04-01] MEDS: Escitalopram Oxalate 20 MG TABLET PO (08:34)
[2022-04-01] MEDS: Divalproex Sodium ER 500 MG TAB.ER.24H PO (08:34)
[2022-04-01] MEDS: Docusate Sodium 100 MG CAPSULE PO (08:34)
[2022-04-01] MEDS: metFORMIN HCl 500 MG TABLET PO (08:34)
[2022-04-01] MEDS: Benztropine Mesylate 1 MG TABLET PO (08:34)
[2022-04-01] MEDS: Fluticasone Propionate Nasal 16 GM SPRAY 1 SPRAY NOSTRIL-B (08:34)
--- NOTE | 2022-04-01 10:11 | P.DS_ITS ---
DS: Providers Provider Date of Service: 04/01/22 Date of admission: 03/20/22 18:28 Date of discharge: 04/01/22 Primary care physician: Unknown Physician Attending physician on admission: Denis Rollins Attending physician on discharge: Denis Rollins DS: Diagnosis Discharge Diagnosis (1) Schizoaffective disorder: Status: Acute (2) PTSD (post-traumatic stress disorder): Status: Suspected (3) Cocaine abuse: Status: Resolved DS: Medications Discharge Medications Home Medications: Home Medications Medication Instructions Recorded Confirmed benztropine 1 mg tablet 1 mg PO DAILY 03/19/22 03/19/22 diclofenac sodium 1 % topical gel 2 g topical QID 03/19/22 03/19/22 divalproex 500 mg tablet,delayed 1,250 mg PO QPM 03/19/22 03/19/22 release (Depakote) divalproex 500 mg tablet,extended 500 mg PO DAILY 03/19/22 03/19/22 release 24 hr (Depakote ER) docusate sodium 100 mg capsule 100 mg PO BID 03/19/22 03/19/22 escitalopram oxalate 20 mg tablet 20 mg PO DAILY 03/19/22 03/19/22 fluticasone furoate 50 50 mcg inhalation DAILY 03/19/22 03/19/22 mcg/actuation blister powder for inhalation levonorgestrel-ethinyl estradiol 1 tab PO DAILY 03/19/22 03/19/22 0.1 mg-20 mcg tablet metformin 500 mg tablet 500 mg PO BID 03/19/22 03/19/22 olanzapine 20 mg tablet 25 mg PO BEDTIME 03/19/22 03/19/22 trazodone 150 mg tablet 150 mg PO BEDTIME 03/19/22 03/19/22 Mental Status Exam Mental Status Exam Narrative: Pt is alert and oriented; behavior is cooperative and calm, friendly; patient is not in distress; unkempt hair, but adequate hygiene; mood is described as good and affect more naturally expressive; eye contact appropriate; Speech not latent; normal rate, volume and prosody and not pressured; no psychomotor a gitation/retardation present; thought process goal directed; otherwise goal oriented; Thought content is on discharge; denies AVH; denies any SI/HI. Patients insight and judgment are fair. Data Data Completed and Pending Completed studies during hospitalization [Text1]: 03/27/22 08:19 Creatinine 0.64 Estim Creat Clear Calc 162.5 Estimated GFR > 60 DS: Summary Hospital Course Hospital Course: pt is a 41 yo female with dx of schizoaffective disorder, PTSD and cocaine abuse who presents for disorganized behavior in face of going off her medications. Hospital course: On admission pt was calm; she had already been restarted on her home medications which were continued and no changes made. Though calm, she was disorganized, with limited insight and not attending to ADL's. Pt c/o left leg pain (typewriter assembler talked w/ mother about left calf who confirmed that pt went to [facility] ED where they r/o DVT and that it was muscle strain ). With staff encouragement patient became more social and engaged in the milieu.? She continued to avoid ADLs and while she normally attends to some of them at baseline, her mother reported resistance to bathing is common for her even at baseline and says her daughter needs prompting.? As medications started to become therapeutic, patient's affect brightened and speech latency resolved. ?Throughout her stay patient was appropriate with peers and staff and was in impulse and behavioral control. Pt did eventually shower. She reported feeling back to her regular self; she acknowledges that she was not attending to ADLs and saying she was lazy but has recently been adherent and says she will continue to do so.? Denies any medication side effects; denies any psychiatric symptoms including AVH and feels ready to return home.? Patient is either at or close to baseline; she has had no recent history of unsafe behaviors; she is organized and with adequate insight.? She is returning to supportive structured environment of [facility].? Patient is not in imminent risk of harm to self or others and her request for discharge honored Time spent discussing smoking cessation with patient: 3 to 10 minutes Status at Discharge Functional status at discharge: independent ambulation Overall status at discharge: patient is back to baseline Time Spent with Patient Time attestation: Total time managing care of this patient today ____ minutes. Discharge Plan Discharge Anticipated Discharge Date/Time: 04/01/22 13:00 Patient Disposition: Home, Self-Care Discharge Diagnosis: schizoaffective disorder Referrals: DR.EVAN PRINCE [Other] - 04/10/22 10:20 am (IN OFFICE) Psych Prescriber:Onofre Adan ([place] [facility] [employer]) [Other] - 05/06/22 9:00 am (Appointment is in person at the office ) Discharge Medications: Continued metformin 500 mg Tablet 500 mg PO BID 30 Days Qty: 60 0RF levonorgestrel-ethinyl estrad 0.1-20 mg-mcg Tablet 1 tab PO DAILY 30 Days Qty: 30 0RF divalproex [Depakote] 500 mg Tablet,Delayed Release (Dr/Ec) 1,250 mg PO QPM 30 Days Qty: 75 0RF trazodone 150 mg Tablet 150 mg PO BEDTIME 30 Days Qty: 30 0RF divalproex [Depakote ER] 500 mg Tablet Extended Release 24 Hr 500 mg PO DAILY 30 Days Qty: 30 0RF benztropine 1 mg Tablet 1 mg PO DAILY 30 Days Qty: 30 0RF docusate sodium 100 mg Capsule 100 mg PO BID 30 Days Qty: 60 0RF olanzapine 20 mg Tablet 25 mg PO BEDTIME 30 Days Qty: 38 0RF escitalopram oxalate 20 mg Tablet 20 mg PO DAILY 30 Days Qty: 30 0RF fluticasone furoate 50 mcg/actuation Blister With Device 50 mcg INHALATION DAILY 30 Days Qty: 30 0RF Changed diclofenac sodium 1 % Gel 2 g TOPICAL QID PRN (Reason: joint pain) Qty: 100 0RF Rx Instructions: apply to single elbow, wrist or hand; for hand includes palm/fingers/back of hand Discharge Orders: Discharge Order (Routine); Ordered 04/01/22 Ordered By: Denis Rollins Diet: Regular diet Activity on Discharge: As tolerated Stand Alone Forms: Patient Portal Discharge page, Community Support Care Plan Goals: Maintain mood and safe behaviors Take medications as prescribed Continue to pursue sobriety Practice coping skills Continue with outpatient providers and reach out to them as needed Health Concerns: Mood stability and behaviors Sobriety Plan of Treatment: Follow up with your PCP, psychiatric provider and other outpatient providers r egarding above concerns Take medications as prescribed Assessment: Risk assessment at time of discharge:? Patient was interviewed prior to discharge and found to be fully oriented and without any SI or HI. Patient has insight and demonstrates good judgment in terms of wanting to pursue treatment. Patient is not in imminent risk of harm to self or others and has a safety plan that includes presenting to the closest ER or calling 911 if feeling unsafe.? Patient has been observed closely by nursing and unit staff throughout admission; patient has not engaged in any behaviors that suggest dangerousness to self or others and has demonstrated appropriate behaviors and impulse control Discharge Date/Time: 04/01/22 14:24
[2022-04-01 14:17] LABS: COVID-19 Test Negative (Negative)
== END 2022-04-01 14:24 | disposition home or self-care (01) | DRG 885 ==
LOC: HO.ED 03-20 17:13 → HO.PM5 03-20 19:04
PROVIDERS: Clinical Nurse Specialist Psychiatric/Mental Health, Adult; Nurse Practitioner Family; Admitting Provider Psychiatry & Neurology Psychiatry; Emergency Provider Student in an Organized Health Care Education/Training Program; Visit Provider Psychiatry & Neurology Psychiatry
DX: F25.9 Schizoaffective disorder, unspecified (principal); R45.851 Suicidal ideations; F43.10 Post-traumatic stress disorder, unspecified; F17.210 Nicotine dependence, cigarettes, uncomplicated; Z20.822 Contact with and (suspected) exposure to COVID-19; Z91.14 Patient's other noncompliance with medication regimen; Z71.6 Tobacco abuse counseling; F14.10 Cocaine abuse, uncomplicated; Z79.51 Long term (current) use of inhaled steroids; Z79.84 Long term (current) use of oral hypoglycemic drugs; Z79.899 Other long term (current) drug therapy
CPT/HCPCS: 0241U; 36415; 80053; 80061; 80076; 80164; 82077; 82140; 82565; 83036; 84702; 85025; 87635; 93005; 99285